=== PATIENT | male | born 1940 | race Caucasian/White ===

== ENCOUNTER → 2023-11-14 12:40 | Outpatient (CLI) | payer OTHER, SELFPAY | PROVIDERS: Family Provider Family Medicine; PCP Family Medicine; Referring Provider Family Medicine; Visit Provider Physician Assistant | DX: L97.822 Non-pressure chronic ulcer of other part of left lower leg with fat layer exposed (principal); L97.322 Non-pressure chronic ulcer of left ankle with fat layer exposed; I73.9 Peripheral vascular disease, unspecified; E11.621 Type 2 diabetes mellitus with foot ulcer; L97.412 Non-pressure chronic ulcer of right heel and midfoot with fat layer exposed; S61.215A Laceration without foreign body of left ring finger without damage to nail, initial encounter; R60.0 Localized edema; L53.9 Erythematous condition, unspecified; R23.4 Changes in skin texture; I48.91 Unspecified atrial fibrillation | CPT/HCPCS: 11042; 11045; 97597; 99213 ==

== ENCOUNTER → 2023-11-21 07:39 | Outpatient (CLI) | payer OTHER, SELFPAY ==
--- NOTE | 2023-11-21 07:40 | DI.US.S_ITS ---
PROCEDURE: US ARTERIAL DUPLEX LE BI INDICATIONS: NON-HEALING WOUNDS BILATERAL TECHNIQUE: Color and pulse Doppler interrogation was performed of both lower extremity arterial systems, with image documentation. COMPARISON: None. FINDINGS: Right lower extremity: Common femoral artery: 57 cm/sec, with triphasic flow. Deep femoral artery: 84 cm/sec, with biphasic flow. Proximal superficial femoral artery: 95 cm/sec, with triphasic flow. Mid superficial femoral artery: 104 cm/sec, with triphasic flow. Distal superficial femoral artery: 91 cm/sec, with triphasic flow. Popliteal artery: 58 cm/sec, with triphasic flow. Posterior tibial artery: 39 cm/sec, with monophasic flow. Anterior tibial artery/dorsalis pedis: 41 cm/sec, with monophasic flow. Raymundo-scale imaging description: Extensive atheromatous calcifications are present predominantly within the infrageniculate arteries. Dampened infrageniculate arterial waveforms raises the suspicion for a hemodynamically significant stenosis at the popliteal artery. Left lower extremity: Common femoral artery: 80 cm/sec, with triphasic flow. Deep femoral artery: 88 cm/sec, with biphasic flow. Proximal superficial femoral artery: 83 cm/sec, with triphasic flow. Mid superficial femoral artery: 96 cm/sec, with triphasic flow. Distal superficial femoral artery: 88 cm/sec, with triphasic flow. Popliteal artery: 79 cm/sec, with triphasic flow. Posterior tibial artery: 22 cm/sec, with monophasic flow. Anterior tibial artery/dorsalis pedis: 53 cm/sec, with monophasic flow. Raymundo-scale imaging description: Dense atheromatous calcifications are present, predominantly within the infrageniculate arteries. Waveforms are dampened within the infrageniculate arteries as well. IMPRESSION: 1. Dampened waveforms bilaterally within the infrageniculate arteries in addition to heavily calcified vessels. Focal hemodynamically significant stenoses at the level of the popliteal arteries cannot be excluded. If further characterization is warranted, and to evaluate for possible therapeutic intervention, CTA with bilateral lower extremity runoff is recommended. Dictated by: Malou Aranda M.D. on 11/21/2023 at 11:00 Approved by: Malou Aranda M.D. on 11/21/2023 at 11:03
--- NOTE | 2023-11-21 12:39 | DI.RAD.S_ITS ---
PROCEDURE: XR TIBIA FIBULA LT 2V INDICATIONS: NONHEALING ULCER ON LEFT LEG TECHNIQUE: 2 views of the tibia and fibula were acquired. COMPARISON: None. FINDINGS: Bones: Orthopedic hardware of the ankle is seen with severe DJD distorting the ankle mortise. No perihardware lucency is identified. DJD of the partially visualized patellofemoral joint and medial and lateral knee compartments is also noted. Soft tissues: Severe atherosclerotic vascular calcifications of the posterior tibial, peroneal arteries noted IMPRESSION: 1. Orthopedic hardware noted 2. Severe atherosclerotic vascular calcifications present. Dictated by: Stanley Alvarez M.D. on 11/21/2023 at 16:38 Approved by: Stanley Alvarez M.D. on 11/21/2023 at 16:41
--- NOTE | 2023-11-21 12:39 | DI.RAD.S_ITS ---
PROCEDURE: XR CALCANEOUS RT MIN 2V INDICATIONS: non-healing ulcer on right heel TECHNIQUE: Two views of the calcaneus were acquired. COMPARISON: None. FINDINGS: Bones: No acute fractures or dislocations. No suspicious bony lesions. Orthopedic screws are seen in the hindfoot and midfoot with no perihardware lucency identified. Soft tissues: Soft tissue swelling. Severe atherosclerotic vascular calcifications of the anterior tibial, dorsalis pedis, posterior tibial artery seen. IMPRESSION: 1. Orthopedic hardware in the hindfoot and midfoot with no evidence of chronic osteomyelitis although plain radiography has low sensitivity for osteomyelitis. 2. Severe peripheral arterial disease calcifications noted; if indicated, lower extremity Doppler ultrasound may provide additional diagnostic benefit Dictated by: Stanley Alvarez M.D. on 11/21/2023 at 16:36 Approved by: Stanley Alvarez M.D. on 11/21/2023 at 16:38
== END ==
PROVIDERS: Family Provider Family Medicine; PCP Family Medicine; Referring Provider Physician Assistant; Visit Provider Physician Assistant
DX: E11.621 Type 2 diabetes mellitus with foot ulcer (principal); L97.929 Non-pressure chronic ulcer of unspecified part of left lower leg with unspecified severity; E11.51 Type 2 diabetes mellitus with diabetic peripheral angiopathy without gangrene; I70.203 Unspecified atherosclerosis of native arteries of extremities, bilateral legs
CPT/HCPCS: 73590; 73650; 93925

== ENCOUNTER → 2023-11-21 11:38 | Outpatient (CLI) | payer OTHER, SELFPAY | PROVIDERS: Family Provider Family Medicine; PCP Family Medicine; Referring Provider Physician Assistant; Visit Provider Physician Assistant | DX: L08.9 Local infection of the skin and subcutaneous tissue, unspecified (principal); E11.621 Type 2 diabetes mellitus with foot ulcer; L97.929 Non-pressure chronic ulcer of unspecified part of left lower leg with unspecified severity; E11.51 Type 2 diabetes mellitus with diabetic peripheral angiopathy without gangrene; I70.202 Unspecified atherosclerosis of native arteries of extremities, left leg; L97.412 Non-pressure chronic ulcer of right heel and midfoot with fat layer exposed; L97.822 Non-pressure chronic ulcer of other part of left lower leg with fat layer exposed; L97.322 Non-pressure chronic ulcer of left ankle with fat layer exposed; I73.9 Peripheral vascular disease, unspecified; I96 Gangrene, not elsewhere classified; L53.9 Erythematous condition, unspecified; R60.0 Localized edema; I70.243 Atherosclerosis of native arteries of left leg with ulceration of ankle; I70.248 Atherosclerosis of native arteries of left leg with ulceration of other part of lower leg | CPT/HCPCS: 73590; 73650; 87070; 87075; 87077; 87205; 93925; 97597; 97598; 99214 ==

== ENCOUNTER → 2023-11-28 13:00 | Outpatient (CLI) | payer OTHER, SELFPAY | PROVIDERS: Family Provider Family Medicine; PCP Family Medicine; Referring Provider Family Medicine; Visit Provider Physician Assistant | DX: L97.822 Non-pressure chronic ulcer of other part of left lower leg with fat layer exposed (principal); I73.9 Peripheral vascular disease, unspecified; E11.621 Type 2 diabetes mellitus with foot ulcer; L97.412 Non-pressure chronic ulcer of right heel and midfoot with fat layer exposed; R60.0 Localized edema; L53.9 Erythematous condition, unspecified; Z79.01 Long term (current) use of anticoagulants; I11.0 Hypertensive heart disease with heart failure; I48.91 Unspecified atrial fibrillation; R20.8 Other disturbances of skin sensation | CPT/HCPCS: 11042; 87070; 87075; 87077; 87205; 99214 ==

== ENCOUNTER → 2023-12-05 08:57 | Outpatient (CLI) | payer OTHER, SELFPAY ==
--- NOTE | 2023-12-05 08:58 | DI.CT.S_ITS ---
PROCEDURE: CT ANGIO ABD AORTA RUNOFF INDICATIONS: PERIPHERAL VASCULAR DISEASE, LEG ULCERS TECHNIQUE: After the administration of intravenous contrast, 2.5 mm sections acquired from T12 to the feet, with optional delayed image acquisition from the knees to the feet. 3-dimensional maximum intensity projection (MIP) coronal and sagittal reformats, and/or 3-dimensional volume rendering reformatting was then performed. For radiation dose reduction, the following was used: automated exposure control. COMPARISON: None. FINDINGS: Image Quality: Diagnostic. Abdominal aorta: Moderate calcification of the abdominal aorta, without aneurysm. Splanchnic vessels: Celiac artery, SMA, TAMELA and bilateral renal arteries are patent. There is an accessory right upper pole renal artery. Mild scattered atherosclerotic plaque. No hemodynamically significant stenosis. Right lower extremity: Iliac vessels: Patent with no high-grade stenosis. Mild atherosclerotic plaque of the common iliac artery. Moderate atherosclerotic plaque of the internal iliac artery. LAWN MOWER SHARPENER: Patent with no high-grade stenosis. Moderate calcification. Profunda: Moderate to marked atherosclerotic calcification. A posteromedial branch of the profundus femoral artery appears chronically occluded (4/292). Proximal profundus is patent. Just proximal to the bifurcation, there is a high-grade stenosis (2/60). SFA: Patent with no high-grade stenosis. Mild multifocal stenosis. Moderate to marked atherosclerotic calcification. Popliteal: Patent with mild multifocal stenoses. Moderate to marked atherosclerotic calcification. Hxtkp-qzk-phck vasculature: Evaluation for patency is limited due to lack of delayed phase imaging and heavily calcified vessels. TP trunk appears patent with mild multifocal stenoses. Left lower extremity: Iliac vessels: Patent with no high-grade stenosis. Mild atherosclerotic plaque of the common iliac artery. Moderate atherosclerotic plaque of the internal iliac artery. LAWN MOWER SHARPENER: Patent with no high-grade stenosis. Moderate calcification. Profunda: Moderate to marked atherosclerotic calcification. Mild to multifocal stenoses. SFA: Patent with no high-grade stenosis. Mild multifocal stenosis. Moderate to marked atherosclerotic calcification. Popliteal: Patent with mild multifocal stenoses. Focal moderate stenosis in the proximal segment of approximately 50% (4/427). Moderate to marked atherosclerotic calcification. Zbzwb-ojz-cnpk vasculature: Evaluation for patency is limited due to lack of delayed phase imaging and heavily calcified vessels. TP trunk appears patent with mild multifocal stenoses. Lower Chest: Cardiomegaly. Cardiac pacers. Postsurgical changes of CABG. Dependent atelectasis. ABDOMEN: Arterial phase imaging limits evaluation of the visceral organs. Liver: No solid mass. Scattered simple cysts. A few tiny subcentimeter hypodensities are too small to characterize. Gallbladder: No radiopaque gallstones or wall thickening. Biliary ducts: No biliary dilation. Pancreas: No ductal dilation. Spleen: Size is within normal limits. Adrenal Glands: No adrenal nodules. Kidneys and Ureters: Xukh-da-ojuyrxeh hydronephrosis. There may be parapelvic cysts bilaterally. No solid mass. No complex renal cystic lesion which requires follow up. Stomach and Bowel: No hiatal hernia. Stomach is grossly normal. Small and large bowel is normal in caliber, without obstruction. Marked colonic stool burden with large stool ball in the rectum with associated mild rectal wall thickening. Peritoneum: No abnormal intraperitoneal fluid. No free air. Ventral Wall: No hernia. Abdominal Nodes: No retroperitoneal or mesenteric adenopathy by size criteria. Vessels: IVC is normal in caliber. PELVIS: Pelvic Organs: Mild prostatomegaly. Bladder: Unremarkable. Pelvic Nodes: No enlarged lymph nodes. Miscellaneous: Small bilateral fat containing inguinal hernias Bones: No aggressive osseous abnormality. Moderate left and small right suprapatellar joint effusions. ORIF of the left ankle and hardware in the calcaneus and bilateral midfoot and forefoot is intact with no perihardware lucency to suggest hardware loosening. IMPRESSION: 1. Right lower extremity: Arterial vasculature demonstrates no evidence of a hemodynamically significant stenosis to the level of the popliteal artery. Below the knee vasculature is limited secondary to heavily calcified vessels. Correlate with prior arterial duplex. 2. Left lower extremity: Arterial vasculature demonstrates a focal moderate stenosis in the proximal popliteal artery of approximately 50%. Remainder of the arterial vasculature demonstrates no evidence of a hemodynamically significant stenosis. Below the knee vasculature is limited secondary to heavily calcified vessels. Correlate with prior arterial duplex. 3. Marked colonic stool burden with large stool burden in the rectum with associated mild rectal wall thickening compatible with constipation and increases the risk for stercoral colitis. 4. Cardiomegaly. Dictated by: Mary Garcia M.D. on 12/05/2023 at 15:20 Approved by: Mary Garcia M.D. on 12/05/2023 at 15:39
[2023-12-05 09:26] LABS: BUN Creatinine Ratio 29.1 (6-22); Blood Urea Nitrogen 30 mg/dL (9-20); Estimated Glomerular Filt Rate > 60 mL/min (>60)
== END ==
PROVIDERS: Family Provider Family Medicine; PCP Family Medicine; Referring Provider Physician Assistant; Visit Provider Physician Assistant
DX: I70.203 Unspecified atherosclerosis of native arteries of extremities, bilateral legs (principal); L97.909 Non-pressure chronic ulcer of unspecified part of unspecified lower leg with unspecified severity; I70.0 Atherosclerosis of aorta; K76.89 Other specified diseases of liver; N13.30 Unspecified hydronephrosis; I51.7 Cardiomegaly; E11.621 Type 2 diabetes mellitus with foot ulcer; L97.412 Non-pressure chronic ulcer of right heel and midfoot with fat layer exposed; L97.822 Non-pressure chronic ulcer of other part of left lower leg with fat layer exposed; L97.322 Non-pressure chronic ulcer of left ankle with fat layer exposed; I10 Essential (primary) hypertension; Z95.0 Presence of cardiac pacemaker; Z95.1 Presence of aortocoronary bypass graft; Z79.899 Other long term (current) drug therapy
CPT/HCPCS: 36415; 75635; 82565; 84520; 97602; Q9967

== ENCOUNTER → 2023-12-05 14:16 | Outpatient (CLI) | payer OTHER, SELFPAY | PROVIDERS: Family Provider Family Medicine; PCP Family Medicine; Referring Provider Family Medicine; Visit Provider Surgery | DX: E11.621 Type 2 diabetes mellitus with foot ulcer (principal); L97.412 Non-pressure chronic ulcer of right heel and midfoot with fat layer exposed; L97.822 Non-pressure chronic ulcer of other part of left lower leg with fat layer exposed; L97.322 Non-pressure chronic ulcer of left ankle with fat layer exposed; I73.9 Peripheral vascular disease, unspecified; I10 Essential (primary) hypertension | CPT/HCPCS: 97602; 99213 ==

== ENCOUNTER → 2023-12-19 11:13 | Outpatient (CLI) | payer OTHER, SELFPAY | LOC: WC 11:14 | PROVIDERS: Family Provider Family Medicine; PCP Family Medicine; Referring Provider Family Medicine; Visit Provider Nurse Practitioner Family | DX: E11.621 Type 2 diabetes mellitus with foot ulcer (principal); L97.412 Non-pressure chronic ulcer of right heel and midfoot with fat layer exposed; L97.822 Non-pressure chronic ulcer of other part of left lower leg with fat layer exposed; L97.322 Non-pressure chronic ulcer of left ankle with fat layer exposed; I73.9 Peripheral vascular disease, unspecified; R60.0 Localized edema; I25.10 Atherosclerotic heart disease of native coronary artery without angina pectoris; I50.9 Heart failure, unspecified; Z79.899 Other long term (current) drug therapy | CPT/HCPCS: 11042; 11045; 97597; 99213; 99214 ==

== ENCOUNTER → 2023-12-26 15:36 | Outpatient (CLI) | payer OTHER, SELFPAY | LOC: WC 15:36 | PROVIDERS: Family Provider Family Medicine; PCP Family Medicine; Referring Provider Family Medicine; Visit Provider Physician Assistant | DX: L97.822 Non-pressure chronic ulcer of other part of left lower leg with fat layer exposed (principal); L97.322 Non-pressure chronic ulcer of left ankle with fat layer exposed; I73.9 Peripheral vascular disease, unspecified; E11.621 Type 2 diabetes mellitus with foot ulcer; L97.412 Non-pressure chronic ulcer of right heel and midfoot with fat layer exposed; R60.0 Localized edema; I10 Essential (primary) hypertension; E78.5 Hyperlipidemia, unspecified; I48.91 Unspecified atrial fibrillation; Z79.01 Long term (current) use of anticoagulants | CPT/HCPCS: 11042; 11045; 99213 ==

== ENCOUNTER → 2024-01-02 15:32 | Outpatient (CLI) | payer OTHER, SELFPAY | LOC: WC 15:32 | PROVIDERS: Family Provider Family Medicine; PCP Family Medicine; Referring Provider Family Medicine; Visit Provider Physician Assistant | DX: L97.822 Non-pressure chronic ulcer of other part of left lower leg with fat layer exposed (principal); L97.322 Non-pressure chronic ulcer of left ankle with fat layer exposed; I73.9 Peripheral vascular disease, unspecified; E11.621 Type 2 diabetes mellitus with foot ulcer; L97.412 Non-pressure chronic ulcer of right heel and midfoot with fat layer exposed; L97.422 Non-pressure chronic ulcer of left heel and midfoot with fat layer exposed; E78.5 Hyperlipidemia, unspecified; I48.91 Unspecified atrial fibrillation; I11.0 Hypertensive heart disease with heart failure; Z79.01 Long term (current) use of anticoagulants; R60.0 Localized edema | CPT/HCPCS: 11042; 11045; 87070; 87075; 87077; 87205; 99212 ==

== ENCOUNTER → 2024-01-09 11:13 | Outpatient (CLI) | payer OTHER, SELFPAY ==
--- NOTE | 2024-01-09 11:14 | DI.RAD.S_ITS ---
PROCEDURE: XR FOOT RT MIN 3V INDICATIONS: Non-healing ulcer of right post heel and medial achilles TECHNIQUE: 3 views of the foot were acquired. COMPARISON: [facility], CR, XR CALCANEOUS RT MIN 2V, 11/21/2023, 12:44. FINDINGS: Bones: Prior arthrodesis of the medial ankle column extending to the 5th metatarsal base with fixation plate and associated screws in expected positions. There is fracture of the most distal surgical screw which traverses the 4th and 5th metatarsus. Prior calcaneal osteotomy with expected positioning of partially threaded fixation screws. Mild hallux valgus metatarsus prima varus alignment and medial bunion. Severe 1st MTP and mild diffuse interphalangeal joint space narrowing with periarticular osteophyte formation. There is cortical irregularity and lucency involving the tuft of the 2nd digit with mild adjacent soft tissue swelling. Soft tissues: No tibiotalar joint effusion. Achilles tendon appears normal. Vascular calcifications indicate atherosclerosis. IMPRESSION: 1. Postsurgical changes at as above with fracture of the surgical fixation screw which traverses the base of the 1st and 2nd metatarsus. 2. Cortical irregularity and lucency along the 2nd distal tuft with mild adjacent soft tissue swelling. Fracture and/or osteomyelitis cannot be excluded and clinical correlation is recommended. Attention on follow-up. Dictated by: Arik Muñoz [facility] Interpreted: Jania Holt MD on 01/09/2024 at 11:31 Transcribed by: TIFFANIE on 01/09/2024 at 11:35 Approved by: Jania Holt M.D. on 01/09/2024 at 12:15
== END ==
PROVIDERS: Family Provider Family Medicine; PCP Family Medicine; Referring Provider Physician Assistant; Visit Provider Physician Assistant
DX: L97.411 Non-pressure chronic ulcer of right heel and midfoot limited to breakdown of skin (principal); M20.11 Hallux valgus (acquired), right foot; M20.31 Hallux varus (acquired), right foot; M21.611 Bunion of right foot; L97.822 Non-pressure chronic ulcer of other part of left lower leg with fat layer exposed; L97.322 Non-pressure chronic ulcer of left ankle with fat layer exposed; I73.9 Peripheral vascular disease, unspecified; E11.621 Type 2 diabetes mellitus with foot ulcer; L97.412 Non-pressure chronic ulcer of right heel and midfoot with fat layer exposed; R60.0 Localized edema; I10 Essential (primary) hypertension; I48.91 Unspecified atrial fibrillation; Z79.01 Long term (current) use of anticoagulants
CPT/HCPCS: 11042; 11045; 73630

== ENCOUNTER → 2024-01-09 11:35 | Outpatient (CLI) | payer OTHER, SELFPAY | PROVIDERS: Family Provider Family Medicine; PCP Family Medicine; Referring Provider Family Medicine; Visit Provider Physician Assistant | DX: L97.822 Non-pressure chronic ulcer of other part of left lower leg with fat layer exposed (principal); L97.322 Non-pressure chronic ulcer of left ankle with fat layer exposed; I73.9 Peripheral vascular disease, unspecified; E11.621 Type 2 diabetes mellitus with foot ulcer; L97.412 Non-pressure chronic ulcer of right heel and midfoot with fat layer exposed; L97.422 Non-pressure chronic ulcer of left heel and midfoot with fat layer exposed; R60.0 Localized edema; I10 Essential (primary) hypertension; I48.91 Unspecified atrial fibrillation; Z79.01 Long term (current) use of anticoagulants | CPT/HCPCS: 11042; 11045; 99214 ==

== ENCOUNTER → 2024-01-16 14:22 | Outpatient (CLI) | payer OTHER, SELFPAY | LOC: WC 14:23 | PROVIDERS: Family Provider Family Medicine; PCP Family Medicine; Referring Provider Family Medicine; Visit Provider Physician Assistant | DX: E11.621 Type 2 diabetes mellitus with foot ulcer (principal); L97.412 Non-pressure chronic ulcer of right heel and midfoot with fat layer exposed; L97.422 Non-pressure chronic ulcer of left heel and midfoot with fat layer exposed; L97.822 Non-pressure chronic ulcer of other part of left lower leg with fat layer exposed; I73.9 Peripheral vascular disease, unspecified; R60.0 Localized edema; I48.91 Unspecified atrial fibrillation; Z79.01 Long term (current) use of anticoagulants; I11.0 Hypertensive heart disease with heart failure | CPT/HCPCS: 11042; 11045; 97597; 99213 ==

== ENCOUNTER → 2024-01-23 14:27 | Outpatient (CLI) | payer OTHER, SELFPAY | LOC: WC 14:28 | PROVIDERS: Family Provider Family Medicine; PCP Family Medicine; Referring Provider Family Medicine; Visit Provider Surgery | DX: E11.621 Type 2 diabetes mellitus with foot ulcer (principal); L97.412 Non-pressure chronic ulcer of right heel and midfoot with fat layer exposed; L97.422 Non-pressure chronic ulcer of left heel and midfoot with fat layer exposed; L97.312 Non-pressure chronic ulcer of right ankle with fat layer exposed; L97.822 Non-pressure chronic ulcer of other part of left lower leg with fat layer exposed; L97.322 Non-pressure chronic ulcer of left ankle with fat layer exposed; I73.9 Peripheral vascular disease, unspecified; R60.0 Localized edema; L53.9 Erythematous condition, unspecified; I48.91 Unspecified atrial fibrillation; Z79.01 Long term (current) use of anticoagulants; I11.0 Hypertensive heart disease with heart failure | CPT/HCPCS: 11042; 11045 ==

== ENCOUNTER → 2024-01-30 09:45 | Outpatient (CLI) | payer OTHER, SELFPAY | PROVIDERS: Family Provider Family Medicine; PCP Family Medicine; Referring Provider Family Medicine; Visit Provider Physician Assistant | DX: E11.621 Type 2 diabetes mellitus with foot ulcer (principal); I73.9 Peripheral vascular disease, unspecified; L97.822 Non-pressure chronic ulcer of other part of left lower leg with fat layer exposed; L97.322 Non-pressure chronic ulcer of left ankle with fat layer exposed; L97.412 Non-pressure chronic ulcer of right heel and midfoot with fat layer exposed; L97.422 Non-pressure chronic ulcer of left heel and midfoot with fat layer exposed; L97.312 Non-pressure chronic ulcer of right ankle with fat layer exposed; R60.0 Localized edema; I11.0 Hypertensive heart disease with heart failure; I48.91 Unspecified atrial fibrillation; Z79.01 Long term (current) use of anticoagulants | CPT/HCPCS: 11042; 11045; 99214 ==

== ENCOUNTER → 2024-02-06 10:22 | Outpatient (CLI) | payer OTHER, SELFPAY | PROVIDERS: Family Provider Family Medicine; PCP Family Medicine; Referring Provider Family Medicine; Visit Provider Physician Assistant | DX: E11.621 Type 2 diabetes mellitus with foot ulcer (principal); L97.412 Non-pressure chronic ulcer of right heel and midfoot with fat layer exposed; L97.422 Non-pressure chronic ulcer of left heel and midfoot with fat layer exposed; L97.312 Non-pressure chronic ulcer of right ankle with fat layer exposed; L97.822 Non-pressure chronic ulcer of other part of left lower leg with fat layer exposed; L97.322 Non-pressure chronic ulcer of left ankle with fat layer exposed; I87.2 Venous insufficiency (chronic) (peripheral); R60.0 Localized edema; L53.9 Erythematous condition, unspecified; I25.10 Atherosclerotic heart disease of native coronary artery without angina pectoris; I50.9 Heart failure, unspecified; I73.9 Peripheral vascular disease, unspecified | CPT/HCPCS: 11042; 11045; 99213; 99214 ==

== ENCOUNTER → 2024-02-13 10:27 | Outpatient (CLI) | payer OTHER, SELFPAY | PROVIDERS: Family Provider Family Medicine; PCP Family Medicine; Referring Provider Family Medicine; Visit Provider Physician Assistant | DX: E11.621 Type 2 diabetes mellitus with foot ulcer (principal); L97.412 Non-pressure chronic ulcer of right heel and midfoot with fat layer exposed; L97.422 Non-pressure chronic ulcer of left heel and midfoot with fat layer exposed; L97.312 Non-pressure chronic ulcer of right ankle with fat layer exposed; L97.822 Non-pressure chronic ulcer of other part of left lower leg with fat layer exposed; L97.322 Non-pressure chronic ulcer of left ankle with fat layer exposed; I73.9 Peripheral vascular disease, unspecified; R60.0 Localized edema; L53.9 Erythematous condition, unspecified; I48.91 Unspecified atrial fibrillation; Z79.01 Long term (current) use of anticoagulants; I11.0 Hypertensive heart disease with heart failure | CPT/HCPCS: 11042; 11045; 87070; 87075; 87077; 87147; 87186; 87205; 99214 ==

== ENCOUNTER → 2024-02-20 09:58 | Outpatient (CLI) | payer OTHER, SELFPAY | PROVIDERS: Family Provider Family Medicine; PCP Family Medicine; Referring Provider Family Medicine; Visit Provider Physician Assistant | DX: L97.822 Non-pressure chronic ulcer of other part of left lower leg with fat layer exposed (principal); L97.322 Non-pressure chronic ulcer of left ankle with fat layer exposed; I73.9 Peripheral vascular disease, unspecified; E11.621 Type 2 diabetes mellitus with foot ulcer; L97.412 Non-pressure chronic ulcer of right heel and midfoot with fat layer exposed; L97.422 Non-pressure chronic ulcer of left heel and midfoot with fat layer exposed; L97.312 Non-pressure chronic ulcer of right ankle with fat layer exposed; L53.9 Erythematous condition, unspecified; R60.0 Localized edema | CPT/HCPCS: 11042; 11045; 99214 ==

== ENCOUNTER → 2024-02-20 11:07 | Outpatient (CLI) | payer OTHER, SELFPAY ==
[2024-02-20 12:09] LABS: Add Manual Diff / Slide Review NO; Basophils Absolute Auto 0 /uL (0-100); Basophils Percent Auto 0.5 % (0-2); Eosinophils Absolute Auto 500 /uL (0-450); Eosinophils Percent Auto 5.3 % (2-4); Hematocrit 35.5 % (41-53); Hemoglobin 11.5 g/dL (13.5-17.5); Lymphocytes Absolute Auto 1200 /uL (1100-4500); Lymphocytes Percent Auto 12.8 % (25-40); Mean Corpuscular HGB Conc 32.4 % (30-36); Mean Corpuscular Volume 89.4 fL (80-100); Monocytes Absolute Auto 700 /uL (0-900); Monocytes Percent Auto 7.9 % (3-14); Neutrophils Absolute Auto 6800 /uL (1500-7000); Neutrophils Percent Auto 73.5 % (50-75); Platelet Count 253 X10^3/uL (150-400); Red Blood Cell Count 3.97 X10^6/uL (4.5-5.9); Red Cell Distribution Width 18.8 % (11.6-14.8); White Blood Cell Count 9.3 X10^3/uL (4.5-11.0)
[2024-02-20 17:34] LABS: Alanine Aminotransferase 32 IU/L (<50); Albumin 4.7 g/dL (3.5-5.0); Albumin Globulin Ratio 1.8 (1.0-2.8); Alkaline Phosphatase 124 U/L (38-126); Aspartate Aminotransferase 31 IU/L (17-59); BUN Creatinine Ratio 31.3 (6-22); Bilirubin Total 1.1 mg/dL (0.2-1.3); Blood Urea Nitrogen 30 mg/dL (9-20); Calcium 9.4 mg/dL (8.4-10.2); Carbon Dioxide 30 mmol/L (22-32); Chloride 102 mmol/L (98-107); Estimated Glomerular Filt Rate > 60 mL/min (>60); Globulin 2.6 g/dL (1.7-4.1); Glucose 110 mg/dL (80-110); HEMOLYSIS < 15 (0-50); Potassium 4.2 mmol/L (3.4-5.1); Sodium 142 mmol/L (137-145); Total Protein 7.3 g/dL (6.3-8.2)
== END ==
PROVIDERS: Family Provider Family Medicine; PCP Family Medicine; Referring Provider Internal Medicine Infectious Disease; Visit Provider Internal Medicine Infectious Disease
DX: E11.621 Type 2 diabetes mellitus with foot ulcer (principal); L97.412 Non-pressure chronic ulcer of right heel and midfoot with fat layer exposed; L97.422 Non-pressure chronic ulcer of left heel and midfoot with fat layer exposed; L97.312 Non-pressure chronic ulcer of right ankle with fat layer exposed; L97.822 Non-pressure chronic ulcer of other part of left lower leg with fat layer exposed; L97.322 Non-pressure chronic ulcer of left ankle with fat layer exposed; L08.9 Local infection of the skin and subcutaneous tissue, unspecified; T14.8XXA Other injury of unspecified body region, initial encounter; A49.9 Bacterial infection, unspecified; Z16.12 Extended spectrum beta lactamase (ESBL) resistance; I73.9 Peripheral vascular disease, unspecified; L53.9 Erythematous condition, unspecified; R60.0 Localized edema
CPT/HCPCS: 11042; 11045; 36415; 80053; 85025

== ENCOUNTER → 2024-02-27 10:35 | Outpatient (CLI) | payer OTHER, SELFPAY | PROVIDERS: Family Provider Family Medicine; PCP Family Medicine; Referring Provider Family Medicine; Visit Provider Physician Assistant | DX: E11.621 Type 2 diabetes mellitus with foot ulcer (principal); L97.822 Non-pressure chronic ulcer of other part of left lower leg with fat layer exposed; L97.322 Non-pressure chronic ulcer of left ankle with fat layer exposed; L97.422 Non-pressure chronic ulcer of left heel and midfoot with fat layer exposed; L97.312 Non-pressure chronic ulcer of right ankle with fat layer exposed; I73.9 Peripheral vascular disease, unspecified; L53.9 Erythematous condition, unspecified; R60.0 Localized edema; I10 Essential (primary) hypertension; I48.91 Unspecified atrial fibrillation; Z79.01 Long term (current) use of anticoagulants; L97.412 Non-pressure chronic ulcer of right heel and midfoot with fat layer exposed | CPT/HCPCS: 11042; 11045; 99214 ==

== ENCOUNTER → 2024-03-05 12:52 | Outpatient (CLI) | payer OTHER, SELFPAY | PROVIDERS: Family Provider Family Medicine; PCP Family Medicine; Referring Provider Family Medicine; Visit Provider Physician Assistant | DX: E11.621 Type 2 diabetes mellitus with foot ulcer (principal); I73.9 Peripheral vascular disease, unspecified; L97.822 Non-pressure chronic ulcer of other part of left lower leg with fat layer exposed; L97.322 Non-pressure chronic ulcer of left ankle with fat layer exposed; L97.412 Non-pressure chronic ulcer of right heel and midfoot with fat layer exposed; L97.422 Non-pressure chronic ulcer of left heel and midfoot with fat layer exposed; L97.312 Non-pressure chronic ulcer of right ankle with fat layer exposed; R60.0 Localized edema; L53.9 Erythematous condition, unspecified; Z79.899 Other long term (current) drug therapy; I48.91 Unspecified atrial fibrillation; Z79.01 Long term (current) use of anticoagulants | CPT/HCPCS: 11042; 11045; 99213 ==

== ENCOUNTER → 2024-03-12 12:55 | Outpatient (CLI) | payer OTHER, SELFPAY | LOC: WC 12:56 | PROVIDERS: Family Provider Family Medicine; PCP Family Medicine; Referring Provider Family Medicine; Visit Provider Surgery | DX: E11.621 Type 2 diabetes mellitus with foot ulcer (principal); L97.412 Non-pressure chronic ulcer of right heel and midfoot with fat layer exposed; L97.422 Non-pressure chronic ulcer of left heel and midfoot with fat layer exposed; L97.312 Non-pressure chronic ulcer of right ankle with fat layer exposed; L97.822 Non-pressure chronic ulcer of other part of left lower leg with fat layer exposed; L97.322 Non-pressure chronic ulcer of left ankle with fat layer exposed; L98.8 Other specified disorders of the skin and subcutaneous tissue; I73.9 Peripheral vascular disease, unspecified; R60.0 Localized edema | CPT/HCPCS: 11042; 11045; 99213; 99214 ==

== ENCOUNTER → 2024-03-12 14:25 | Outpatient (CLI) | payer OTHER, SELFPAY ==
--- NOTE | 2024-03-12 14:26 | DI.RAD.S_ITS ---
PROCEDURE: XR FOOT LT MIN 3V INDICATIONS: non-healing ulcer on left lateral heel TECHNIQUE: 3 views of the foot were acquired. COMPARISON: [facility], CR, XR FOOT RT MIN 3V, 01/09/2024, 11:15. FINDINGS: Bones: Decreased bone mineralization. 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 Interphalangeal joint space narrowing with osteophytosis. Midfoot arthrodesis. Disrupted arthrodesis screw. Ankle arthrodesis. No bony erosion. Soft tissues: No tibiotalar joint effusion. Achilles tendon appears normal. Vascular calcifications. IMPRESSION: No bony erosion to suggest osteomyelitis. Disrupted arthrodesis screw. Dictated by: Chester Nicole M.D. on 03/12/2024 at 15:34 Approved by: Chester Nicole M.D. on 03/12/2024 at 15:35
== END ==
PROVIDERS: Family Provider Family Medicine; PCP Family Medicine; Referring Provider Surgery; Visit Provider Surgery
DX: T84.223A Displacement of internal fixation device of bones of foot and toes, initial encounter (principal); E11.621 Type 2 diabetes mellitus with foot ulcer
CPT/HCPCS: 11042; 11045; 73630; 99213

== ENCOUNTER → 2024-03-19 11:01 | Outpatient (CLI) | payer OTHER, SELFPAY | PROVIDERS: Family Provider Family Medicine; PCP Family Medicine; Referring Provider Family Medicine; Visit Provider Physician Assistant | DX: E11.621 Type 2 diabetes mellitus with foot ulcer (principal); L97.422 Non-pressure chronic ulcer of left heel and midfoot with fat layer exposed; L97.312 Non-pressure chronic ulcer of right ankle with fat layer exposed; L97.412 Non-pressure chronic ulcer of right heel and midfoot with fat layer exposed; L97.822 Non-pressure chronic ulcer of other part of left lower leg with fat layer exposed; I73.9 Peripheral vascular disease, unspecified; L53.9 Erythematous condition, unspecified; R60.0 Localized edema; I10 Essential (primary) hypertension; I48.91 Unspecified atrial fibrillation; Z79.01 Long term (current) use of anticoagulants | CPT/HCPCS: 11042; 11045; 97597; 99214 ==

== ENCOUNTER → 2024-03-26 08:50 | Outpatient (CLI) | payer OTHER, SELFPAY | PROVIDERS: Family Provider Family Medicine; PCP Family Medicine; Referring Provider Family Medicine; Visit Provider Physician Assistant | DX: E11.621 Type 2 diabetes mellitus with foot ulcer (principal); L97.422 Non-pressure chronic ulcer of left heel and midfoot with fat layer exposed; L97.312 Non-pressure chronic ulcer of right ankle with fat layer exposed; L97.822 Non-pressure chronic ulcer of other part of left lower leg with fat layer exposed; I73.9 Peripheral vascular disease, unspecified; R60.0 Localized edema; I10 Essential (primary) hypertension; E78.5 Hyperlipidemia, unspecified; I48.91 Unspecified atrial fibrillation; I50.9 Heart failure, unspecified; Z79.01 Long term (current) use of anticoagulants | CPT/HCPCS: 11042; 99214 ==

== ENCOUNTER → 2024-03-31 11:11 | Outpatient (CLI) | payer OTHER, SELFPAY | LOC: WC 11:12 | PROVIDERS: Family Provider Family Medicine; PCP Family Medicine; Referring Provider Family Medicine; Visit Provider Surgery | DX: E11.621 Type 2 diabetes mellitus with foot ulcer (principal); L97.422 Non-pressure chronic ulcer of left heel and midfoot with fat layer exposed; L97.312 Non-pressure chronic ulcer of right ankle with fat layer exposed; L97.822 Non-pressure chronic ulcer of other part of left lower leg with fat layer exposed; I73.9 Peripheral vascular disease, unspecified; R60.0 Localized edema; I10 Essential (primary) hypertension; I48.91 Unspecified atrial fibrillation; Z79.01 Long term (current) use of anticoagulants | CPT/HCPCS: 11042; 97597; 99214 ==

== ENCOUNTER → 2024-04-16 11:07 | Outpatient (CLI) | payer OTHER, SELFPAY | PROVIDERS: Family Provider Family Medicine; PCP Family Medicine; Referring Provider Family Medicine; Visit Provider Physician Assistant | DX: E11.621 Type 2 diabetes mellitus with foot ulcer (principal); L97.426 Non-pressure chronic ulcer of left heel and midfoot with bone involvement without evidence of necrosis; L97.312 Non-pressure chronic ulcer of right ankle with fat layer exposed; L97.822 Non-pressure chronic ulcer of other part of left lower leg with fat layer exposed; I73.9 Peripheral vascular disease, unspecified; L53.9 Erythematous condition, unspecified; I50.9 Heart failure, unspecified; I25.10 Atherosclerotic heart disease of native coronary artery without angina pectoris; Z79.01 Long term (current) use of anticoagulants | CPT/HCPCS: 11042; 97597; 99213 ==

== ENCOUNTER → 2024-04-28 15:07 | Outpatient (CLI) | payer OTHER, SELFPAY ==
--- NOTE | 2024-04-28 15:08 | DI.NM.S_ITS ---
PROCEDURE: NM BONE 3 PHASE RADIOPHARMACEUTICAL: 21.1 mCi Tc-99m MDP IV. INDICATIONS: eval for osteo TECHNIQUE: Multiple bone scintigrams were obtained after intravenous injection of Tc-99m MDP, including flow, blood pool, and delayed images centered to the region of interest. COMPARISON: [facility], CR, XR FOOT RT MIN 3V, 01/09/2024, 11:15. [facility], CR, XR FOOT LT MIN 3V, 03/12/2024, 14:32. FINDINGS: On the blood flow images, mildly increased blood flow activity can be seen within the central/lateral aspect of the right ankle. On the blood pool images, there is asymmetric uptake seen involving the distal right tibia. On the delayed images, there is increased uptake seen involving the lateral aspect of the right ankle as well as surrounding the tibial talar arthroplasty hardware on the left. IMPRESSION: Potential osteomyelitis involving the right lateral ankle, yet this is not definite. If clinically appropriate, a follow-up ankle MRI (without and with contrast) could be considered for further evaluation (assuming that there is no contraindication). Likely normal postoperative findings seen involving the left ankle. Dictated by: Joselito Iyer M.D. on 04/29/2024 at 10:55 Approved by: Joselito Iyer M.D. on 04/29/2024 at 11:04
== END ==
PROVIDERS: Family Provider Family Medicine; PCP Family Medicine; Referring Provider Surgery; Visit Provider Surgery
DX: E11.621 Type 2 diabetes mellitus with foot ulcer (principal); L97.419 Non-pressure chronic ulcer of right heel and midfoot with unspecified severity
CPT/HCPCS: 78315; A9503

== ENCOUNTER → 2024-04-29 13:32 | Outpatient (CLI) | payer OTHER, SELFPAY | LOC: WC 13:33 | PROVIDERS: Family Provider Family Medicine; PCP Family Medicine; Referring Provider Family Medicine; Visit Provider Surgery | DX: E11.621 Type 2 diabetes mellitus with foot ulcer (principal); L97.426 Non-pressure chronic ulcer of left heel and midfoot with bone involvement without evidence of necrosis; L97.312 Non-pressure chronic ulcer of right ankle with fat layer exposed; L97.822 Non-pressure chronic ulcer of other part of left lower leg with fat layer exposed; I73.9 Peripheral vascular disease, unspecified; Z95.0 Presence of cardiac pacemaker; Z79.01 Long term (current) use of anticoagulants | CPT/HCPCS: 11042; 97597 ==

== ENCOUNTER → 2024-05-14 11:11 | Outpatient (CLI) | payer OTHER, SELFPAY | LOC: WC 11:11 | PROVIDERS: Family Provider Family Medicine; PCP Family Medicine; Referring Provider Family Medicine; Visit Provider Physician Assistant | DX: E11.621 Type 2 diabetes mellitus with foot ulcer (principal); L97.426 Non-pressure chronic ulcer of left heel and midfoot with bone involvement without evidence of necrosis; L97.312 Non-pressure chronic ulcer of right ankle with fat layer exposed; S81.812A Laceration without foreign body, left lower leg, initial encounter; L53.9 Erythematous condition, unspecified; L98.8 Other specified disorders of the skin and subcutaneous tissue | CPT/HCPCS: 11042; 97597; 99214 ==

== ENCOUNTER → 2024-05-21 13:21 | Outpatient (CLI) | payer OTHER, SELFPAY | PROVIDERS: Family Provider Family Medicine; PCP Family Medicine; Referring Provider Family Medicine; Visit Provider Physician Assistant | DX: E11.621 Type 2 diabetes mellitus with foot ulcer (principal); E11.628 Type 2 diabetes mellitus with other skin complications; L97.422 Non-pressure chronic ulcer of left heel and midfoot with fat layer exposed; S81.812A Laceration without foreign body, left lower leg, initial encounter; L97.312 Non-pressure chronic ulcer of right ankle with fat layer exposed; L84 Corns and callosities | CPT/HCPCS: 11042; 99213 ==

== ENCOUNTER → 2024-06-04 10:33 | Outpatient (CLI) | payer OTHER, SELFPAY | PROVIDERS: Family Provider Family Medicine; PCP Family Medicine; Referring Provider Family Medicine; Visit Provider Physician Assistant | DX: E11.621 Type 2 diabetes mellitus with foot ulcer (principal); L97.422 Non-pressure chronic ulcer of left heel and midfoot with fat layer exposed; I73.9 Peripheral vascular disease, unspecified; I10 Essential (primary) hypertension; E78.5 Hyperlipidemia, unspecified; I48.91 Unspecified atrial fibrillation; Z79.01 Long term (current) use of anticoagulants | CPT/HCPCS: 11042; 99213 ==

== ENCOUNTER → 2024-06-10 14:24 | Outpatient (CLI) | payer OTHER, SELFPAY | PROVIDERS: Family Provider Family Medicine; PCP Family Medicine; Referring Provider Family Medicine; Visit Provider Surgery | DX: E11.621 Type 2 diabetes mellitus with foot ulcer (principal); L97.422 Non-pressure chronic ulcer of left heel and midfoot with fat layer exposed; I73.9 Peripheral vascular disease, unspecified; Z79.01 Long term (current) use of anticoagulants | CPT/HCPCS: 11042 ==

== ENCOUNTER → 2024-06-18 10:30 | Outpatient (CLI) | payer OTHER, SELFPAY | LOC: WC 10:34 | PROVIDERS: Family Provider Family Medicine; PCP Family Medicine; Referring Provider Family Medicine; Visit Provider Physician Assistant | DX: E11.621 Type 2 diabetes mellitus with foot ulcer (principal); L97.422 Non-pressure chronic ulcer of left heel and midfoot with fat layer exposed; I73.9 Peripheral vascular disease, unspecified; I50.9 Heart failure, unspecified; I25.10 Atherosclerotic heart disease of native coronary artery without angina pectoris | CPT/HCPCS: 11042; 99213 ==

== ENCOUNTER → 2024-06-25 09:52 | Outpatient (CLI) | payer OTHER, SELFPAY | LOC: WC 09:57 | PROVIDERS: Family Provider Family Medicine; PCP Family Medicine; Referring Provider Family Medicine; Visit Provider Physician Assistant | DX: E11.621 Type 2 diabetes mellitus with foot ulcer (principal); L97.422 Non-pressure chronic ulcer of left heel and midfoot with fat layer exposed; I73.9 Peripheral vascular disease, unspecified; Z79.01 Long term (current) use of anticoagulants | CPT/HCPCS: 11042 ==

== ENCOUNTER → 2024-07-05 13:10 | Outpatient (CLI) | payer OTHER, SELFPAY | PROVIDERS: Family Provider Family Medicine; PCP Family Medicine; Referring Provider Family Medicine; Visit Provider Surgery | DX: E11.621 Type 2 diabetes mellitus with foot ulcer (principal); L97.422 Non-pressure chronic ulcer of left heel and midfoot with fat layer exposed; I73.9 Peripheral vascular disease, unspecified; Z79.01 Long term (current) use of anticoagulants; L08.89 Other specified local infections of the skin and subcutaneous tissue | CPT/HCPCS: 11042 ==

== ENCOUNTER → 2024-07-16 10:05 | Outpatient (CLI) | payer OTHER, SELFPAY | PROVIDERS: Family Provider Family Medicine; PCP Family Medicine; Referring Provider Family Medicine; Visit Provider Physician Assistant | DX: E11.621 Type 2 diabetes mellitus with foot ulcer (principal); L97.422 Non-pressure chronic ulcer of left heel and midfoot with fat layer exposed; L84 Corns and callosities; I73.9 Peripheral vascular disease, unspecified | CPT/HCPCS: 11042; 97605; 99213 ==

== ENCOUNTER → 2024-07-19 10:44 | Outpatient (CLI) | payer OTHER, SELFPAY | LOC: WC 10:44 | PROVIDERS: Family Provider Family Medicine; PCP Family Medicine; Referring Provider Family Medicine; Visit Provider Surgery | DX: E11.621 Type 2 diabetes mellitus with foot ulcer (principal); L97.422 Non-pressure chronic ulcer of left heel and midfoot with fat layer exposed; L84 Corns and callosities; R23.3 Spontaneous ecchymoses | CPT/HCPCS: 97605 ==

== ENCOUNTER → 2024-07-23 11:14 | Outpatient (CLI) | payer OTHER, SELFPAY | LOC: WC 11:16 | PROVIDERS: Family Provider Family Medicine; PCP Family Medicine; Referring Provider Family Medicine; Visit Provider Surgery | DX: E11.621 Type 2 diabetes mellitus with foot ulcer (principal); L97.422 Non-pressure chronic ulcer of left heel and midfoot with fat layer exposed; L84 Corns and callosities; R23.3 Spontaneous ecchymoses; I73.9 Peripheral vascular disease, unspecified | CPT/HCPCS: 11042; 87070; 87075; 87077; 87186; 87205; 99213 ==

== ENCOUNTER → 2024-07-30 10:02 | Outpatient (CLI) | payer OTHER, SELFPAY | PROVIDERS: Family Provider Family Medicine; PCP Family Medicine; Referring Provider Family Medicine; Visit Provider Surgery | DX: E11.621 Type 2 diabetes mellitus with foot ulcer (principal); L97.422 Non-pressure chronic ulcer of left heel and midfoot with fat layer exposed; L84 Corns and callosities; R23.3 Spontaneous ecchymoses; I73.9 Peripheral vascular disease, unspecified; Z79.01 Long term (current) use of anticoagulants; Z95.0 Presence of cardiac pacemaker | CPT/HCPCS: 11042; 99213 ==

== ENCOUNTER → 2024-07-30 10:51 | Outpatient (CLI) | payer OTHER, SELFPAY ==
--- NOTE | 2024-07-30 10:52 | DI.RAD.S_ITS ---
PROCEDURE: XR FOOT LT MIN 3V INDICATIONS: Eval osteo. Ulcer of left posterior lateral heel. TECHNIQUE: 3 views of the foot were acquired. COMPARISON: [facility], [place], [place] BONE 3 PHASE, 04/28/2024, 15:50. [facility], CR, XR FOOT LT MIN 3V, 03/12/2024, 14:32. [facility], CR, XR FOOT RT MIN 3V, 01/09/2024, 11:15. FINDINGS: Bones: No fractures or dislocations. Resection at the 2nd digit distal phalanx. Screw fixation at the medial midfoot. The fractured screw is less conspicuous. Tibiotalar joint arthroplasty. No suspicious bony lesions. Soft tissues: No tibiotalar joint effusion. Achilles tendon appears normal. Arterial vascular calcifications. IMPRESSION: No interval change appreciated. No osseous erosion is identified. Multiples fixation screws at the medial midfoot. Previously fractured screw is not well identified. Tibiotalar joint arthroplasty. Dictated by: Chaparro Rogers M.D. on 08/02/2024 at 18:27 Approved by: Chaparro Rogers M.D. on 08/02/2024 at 18:37
== END ==
PROVIDERS: Family Provider Family Medicine; PCP Family Medicine; Referring Provider Physician Assistant; Visit Provider Physician Assistant
DX: L97.422 Non-pressure chronic ulcer of left heel and midfoot with fat layer exposed (principal); E11.621 Type 2 diabetes mellitus with foot ulcer; L84 Corns and callosities; R23.3 Spontaneous ecchymoses; I73.9 Peripheral vascular disease, unspecified; Z79.01 Long term (current) use of anticoagulants; Z95.0 Presence of cardiac pacemaker
CPT/HCPCS: 11042; 73630

== ENCOUNTER → 2024-08-05 13:11 | Outpatient (CLI) | payer OTHER, SELFPAY | LOC: WC 13:11 | PROVIDERS: Family Provider Family Medicine; PCP Family Medicine; Referring Provider Family Medicine; Visit Provider Physician Assistant | DX: E11.621 Type 2 diabetes mellitus with foot ulcer (principal); L97.422 Non-pressure chronic ulcer of left heel and midfoot with fat layer exposed; L84 Corns and callosities; R23.3 Spontaneous ecchymoses; I73.9 Peripheral vascular disease, unspecified; I50.9 Heart failure, unspecified; I25.10 Atherosclerotic heart disease of native coronary artery without angina pectoris; Z95.0 Presence of cardiac pacemaker | CPT/HCPCS: 11042; 99213 ==

== ENCOUNTER → 2024-08-12 14:04 | Outpatient (CLI) | payer OTHER, SELFPAY | PROVIDERS: Family Provider Family Medicine; PCP Family Medicine; Referring Provider Family Medicine; Visit Provider Surgery | DX: E11.621 Type 2 diabetes mellitus with foot ulcer (principal); L97.426 Non-pressure chronic ulcer of left heel and midfoot with bone involvement without evidence of necrosis; L84 Corns and callosities; E11.42 Type 2 diabetes mellitus with diabetic polyneuropathy; E11.51 Type 2 diabetes mellitus with diabetic peripheral angiopathy without gangrene | CPT/HCPCS: 11042 ==

== ENCOUNTER → 2024-08-19 10:07 | Outpatient (CLI) | payer OTHER, SELFPAY | PROVIDERS: Family Provider Family Medicine; PCP Family Medicine; Referring Provider Family Medicine; Visit Provider Surgery | DX: E11.621 Type 2 diabetes mellitus with foot ulcer (principal); E11.42 Type 2 diabetes mellitus with diabetic polyneuropathy; L97.422 Non-pressure chronic ulcer of left heel and midfoot with fat layer exposed; L84 Corns and callosities; I73.9 Peripheral vascular disease, unspecified; Z79.01 Long term (current) use of anticoagulants | CPT/HCPCS: 11042 ==

== ENCOUNTER → 2024-08-26 09:58 | Outpatient (CLI) | payer OTHER, SELFPAY | PROVIDERS: Family Provider Family Medicine; PCP Family Medicine; Referring Provider Family Medicine; Visit Provider Surgery | DX: E11.621 Type 2 diabetes mellitus with foot ulcer (principal); L97.426 Non-pressure chronic ulcer of left heel and midfoot with bone involvement without evidence of necrosis; L84 Corns and callosities; I73.9 Peripheral vascular disease, unspecified | CPT/HCPCS: 11042 ==

== ENCOUNTER → 2024-09-09 10:59 | Outpatient (CLI) | payer OTHER, SELFPAY | PROVIDERS: Family Provider Family Medicine; PCP Family Medicine; Referring Provider Family Medicine; Visit Provider Surgery | DX: E11.621 Type 2 diabetes mellitus with foot ulcer (principal); L97.422 Non-pressure chronic ulcer of left heel and midfoot with fat layer exposed; L84 Corns and callosities; I73.9 Peripheral vascular disease, unspecified; I50.9 Heart failure, unspecified; I25.10 Atherosclerotic heart disease of native coronary artery without angina pectoris | CPT/HCPCS: 11042; 99213 ==

== ENCOUNTER → 2024-09-16 10:33 | Outpatient (CLI) | payer OTHER, SELFPAY | PROVIDERS: Family Provider Family Medicine; PCP Family Medicine; Referring Provider Family Medicine; Visit Provider Surgery | DX: E11.621 Type 2 diabetes mellitus with foot ulcer (principal); L97.422 Non-pressure chronic ulcer of left heel and midfoot with fat layer exposed; L84 Corns and callosities; I73.9 Peripheral vascular disease, unspecified; I11.0 Hypertensive heart disease with heart failure; I50.9 Heart failure, unspecified; E78.5 Hyperlipidemia, unspecified; I48.91 Unspecified atrial fibrillation; Z79.01 Long term (current) use of anticoagulants | CPT/HCPCS: 11042 ==

== ENCOUNTER → 2024-09-24 09:49 | Outpatient (CLI) | payer OTHER, SELFPAY | PROVIDERS: Family Provider Family Medicine; PCP Family Medicine; Referring Provider Family Medicine; Visit Provider Physician Assistant | DX: E11.621 Type 2 diabetes mellitus with foot ulcer (principal); L97.422 Non-pressure chronic ulcer of left heel and midfoot with fat layer exposed; I73.9 Peripheral vascular disease, unspecified; I10 Essential (primary) hypertension; E78.5 Hyperlipidemia, unspecified; I48.91 Unspecified atrial fibrillation; Z79.01 Long term (current) use of anticoagulants | CPT/HCPCS: 11042; 87070; 87075; 87205; 99213; 99214 ==

== ENCOUNTER → 2024-10-01 10:51 | Outpatient (CLI) | payer OTHER, SELFPAY | PROVIDERS: Family Provider Family Medicine; PCP Family Medicine; Referring Provider Family Medicine; Visit Provider Physician Assistant | DX: E11.621 Type 2 diabetes mellitus with foot ulcer (principal); L97.428 Non-pressure chronic ulcer of left heel and midfoot with other specified severity; R23.3 Spontaneous ecchymoses; I73.9 Peripheral vascular disease, unspecified; Z79.2 Long term (current) use of antibiotics | CPT/HCPCS: 11042; 99214 ==

== ENCOUNTER → 2024-10-07 10:43 | Outpatient (CLI) | payer OTHER, SELFPAY | PROVIDERS: Family Provider Family Medicine; PCP Family Medicine; Referring Provider Family Medicine; Visit Provider Surgery | DX: E11.42 Type 2 diabetes mellitus with diabetic polyneuropathy (principal); E11.621 Type 2 diabetes mellitus with foot ulcer; L97.428 Non-pressure chronic ulcer of left heel and midfoot with other specified severity; R23.3 Spontaneous ecchymoses; I73.9 Peripheral vascular disease, unspecified | CPT/HCPCS: 11042 ==

== ENCOUNTER → 2024-10-07 13:44 | Outpatient (CLI) | payer OTHER, SELFPAY ==
[2024-10-07 14:17] LABS: Estimated Glomerular Filt Rate 59 mL/min (>60)
--- NOTE | 2024-10-07 14:17 | DI.CT.S_ITS ---
PROCEDURE: CT LE LT W CON INDICATIONS: posterior heel ulcer TECHNIQUE: Noncontrast 1-1.5 mm axial sections acquired from above the tibiotalar joint to the bottom of the calcaneus, with coronal and sagittal reformats. For radiation dose reduction, the following was used: automated exposure control, adjustment of mA and/or kV according to patient size. COMPARISON: [facility], CR, XR TIBIA FIBULA LT 2V, 11/21/2023, 12:44. [facility], [place], NM BONE 3 PHASE, 04/28/2024, 15:50. [facility], CR, XR FOOT LT MIN 3V, 07/30/2024, 10:54. FINDINGS: Image quality: Excellent. Bones: Postsurgical changes are seen from mortise joint arthroplasty. The lateral portion of the tibial component abuts the medial fibula with mild osseous remodeling. Arthroplasty positioning appears unchanged. Heterotopic calcifications are seen surrounding the joint. Screw tracks from prior removed surgical hardware at the lateral fibula with osseous bridging across the tibiofibular syndesmosis. Prior subtalar arthrodesis with partial osseous bridging and subsequent hardware removal. Medial midfoot fixation hardware again seen with osseous bridging across the navicular 1st cuneiform articulation and 1st tarsometatarsal joints. There is focal fracture of the longest longitudinally oriented screw. 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 No definite cortical destruction is seen at the posterior lateral calcaneus adjacent to the skin ulcer. Soft tissues: Deep skin ulceration at the posterior lateral aspect of the heel extending to the depth of the underlying calcaneus. No focal fluid collection is seen. Nonspecific subcutaneous edema is seen surrounding the ankle. The adjacent Achilles tendon insertion appears to be intact. However, the tendons, ligaments, and articular cartilages are not well evaluated with CT. Arterial vascular calcifications are present. There is fatty infiltration of the foot musculature consistent with chronic denervation changes. IMPRESSION: 1. Deep skin ulceration at the posterior lateral aspect of the heel to the depth of the underlying calcaneus. No fluid collection or abscess is seen. No cortical erosion or destruction is seen with CT to suggest osteomyelitis. MRI could be performed for more sensitive evaluation for early disease if there is continued clinical concern. 2. Postsurgical changes from tibiotalar arthroplasty and multifocal midfoot and hindfoot arthrodesis, not significantly changed when compared to prior exams. 3. Fatty infiltration of the foot musculature is consistent with chronic denervation changes. Approved by: Francisco Perdue M.D. on 10/08/2024 at 9:48
== END ==
PROVIDERS: Radiology Diagnostic Radiology; Family Provider Family Medicine; PCP Family Medicine; Referring Provider Physician Assistant; Visit Provider Physician Assistant
DX: L97.429 Non-pressure chronic ulcer of left heel and midfoot with unspecified severity (principal); Z96.662 Presence of left artificial ankle joint; Z98.1 Arthrodesis status
CPT/HCPCS: 36415; 73700; 82565

== ENCOUNTER → 2024-10-14 09:44 | Outpatient (CLI) | payer OTHER, SELFPAY | PROVIDERS: Family Provider Family Medicine; PCP Family Medicine; Referring Provider Family Medicine; Visit Provider Surgery | DX: E11.621 Type 2 diabetes mellitus with foot ulcer (principal); L97.428 Non-pressure chronic ulcer of left heel and midfoot with other specified severity; R23.3 Spontaneous ecchymoses; I73.9 Peripheral vascular disease, unspecified; I25.10 Atherosclerotic heart disease of native coronary artery without angina pectoris; I11.0 Hypertensive heart disease with heart failure; I50.9 Heart failure, unspecified; I48.91 Unspecified atrial fibrillation; Z79.01 Long term (current) use of anticoagulants | CPT/HCPCS: 11042; 99213 ==

== ENCOUNTER → 2024-10-21 14:28 | Outpatient (CLI) | payer OTHER, SELFPAY | PROVIDERS: Family Provider Family Medicine; PCP Family Medicine; Referring Provider Family Medicine; Visit Provider Surgery | DX: E11.621 Type 2 diabetes mellitus with foot ulcer (principal); L97.428 Non-pressure chronic ulcer of left heel and midfoot with other specified severity; L97.412 Non-pressure chronic ulcer of right heel and midfoot with fat layer exposed; I73.9 Peripheral vascular disease, unspecified; R23.3 Spontaneous ecchymoses | CPT/HCPCS: 11042; 99213 ==

== ENCOUNTER → 2024-10-28 11:23 | Outpatient (CLI) | payer OTHER, SELFPAY | PROVIDERS: Family Provider Family Medicine; PCP Family Medicine; Referring Provider Family Medicine; Visit Provider Surgery | DX: E11.621 Type 2 diabetes mellitus with foot ulcer (principal); L97.428 Non-pressure chronic ulcer of left heel and midfoot with other specified severity; L97.412 Non-pressure chronic ulcer of right heel and midfoot with fat layer exposed; E11.51 Type 2 diabetes mellitus with diabetic peripheral angiopathy without gangrene; I11.0 Hypertensive heart disease with heart failure; I50.89 Other heart failure; E78.5 Hyperlipidemia, unspecified; I48.91 Unspecified atrial fibrillation; Z79.01 Long term (current) use of anticoagulants; Z79.2 Long term (current) use of antibiotics; Z86.73 Personal history of transient ischemic attack (TIA), and cerebral infarction without residual deficits | CPT/HCPCS: 11042 ==

== ENCOUNTER → 2024-11-04 10:10 | Outpatient (CLI) | payer OTHER, SELFPAY | LOC: WC 10:11 | PROVIDERS: Family Provider Family Medicine; PCP Family Medicine; Referring Provider Family Medicine; Visit Provider Surgery | DX: E11.621 Type 2 diabetes mellitus with foot ulcer (principal); L97.422 Non-pressure chronic ulcer of left heel and midfoot with fat layer exposed; L97.412 Non-pressure chronic ulcer of right heel and midfoot with fat layer exposed; E11.42 Type 2 diabetes mellitus with diabetic polyneuropathy; E11.51 Type 2 diabetes mellitus with diabetic peripheral angiopathy without gangrene | CPT/HCPCS: 11042 ==

== ENCOUNTER → 2024-11-08 15:10 | Outpatient (CLI) | payer OTHER, SELFPAY | PROVIDERS: Family Provider Family Medicine; PCP Family Medicine; Referring Provider Family Medicine; Visit Provider Surgery | DX: L97.428 Non-pressure chronic ulcer of left heel and midfoot with other specified severity (principal); E11.621 Type 2 diabetes mellitus with foot ulcer; E11.42 Type 2 diabetes mellitus with diabetic polyneuropathy; I73.9 Peripheral vascular disease, unspecified; L97.412 Non-pressure chronic ulcer of right heel and midfoot with fat layer exposed | CPT/HCPCS: 99183; G0277 ==

== ENCOUNTER → 2024-11-09 12:57 | Outpatient (CLI) | payer OTHER, SELFPAY | PROVIDERS: Family Provider Family Medicine; PCP Family Medicine; Referring Provider Family Medicine; Visit Provider Surgery | DX: L97.428 Non-pressure chronic ulcer of left heel and midfoot with other specified severity (principal); E11.621 Type 2 diabetes mellitus with foot ulcer; E11.42 Type 2 diabetes mellitus with diabetic polyneuropathy; I73.9 Peripheral vascular disease, unspecified; L97.412 Non-pressure chronic ulcer of right heel and midfoot with fat layer exposed | CPT/HCPCS: 99183; G0277 ==

== ENCOUNTER → 2024-11-10 14:20 | Outpatient (CLI) | payer OTHER, SELFPAY | PROVIDERS: Family Provider Family Medicine; PCP Family Medicine; Referring Provider Family Medicine; Visit Provider Surgery | DX: L97.428 Non-pressure chronic ulcer of left heel and midfoot with other specified severity (principal); E11.621 Type 2 diabetes mellitus with foot ulcer; E11.42 Type 2 diabetes mellitus with diabetic polyneuropathy; I73.9 Peripheral vascular disease, unspecified; L97.412 Non-pressure chronic ulcer of right heel and midfoot with fat layer exposed | CPT/HCPCS: 99183; G0277 ==

== ENCOUNTER → 2024-11-11 11:45 | Outpatient (CLI) | payer OTHER, SELFPAY | LOC: WC 11:48 | PROVIDERS: Family Provider Family Medicine; PCP Family Medicine; Referring Provider Family Medicine; Visit Provider Surgery | DX: E11.621 Type 2 diabetes mellitus with foot ulcer (principal); L97.422 Non-pressure chronic ulcer of left heel and midfoot with fat layer exposed; E11.42 Type 2 diabetes mellitus with diabetic polyneuropathy; Z79.01 Long term (current) use of anticoagulants | CPT/HCPCS: 11042; 99183; 99213; G0277 ==

== ENCOUNTER → 2024-11-12 10:47 | Outpatient (CLI) | payer OTHER, SELFPAY | LOC: WC 10:52 | PROVIDERS: Family Provider Family Medicine; PCP Family Medicine; Referring Provider Family Medicine; Visit Provider Physician Assistant | DX: L97.428 Non-pressure chronic ulcer of left heel and midfoot with other specified severity (principal); E11.621 Type 2 diabetes mellitus with foot ulcer; E11.42 Type 2 diabetes mellitus with diabetic polyneuropathy; I73.9 Peripheral vascular disease, unspecified; L97.412 Non-pressure chronic ulcer of right heel and midfoot with fat layer exposed | CPT/HCPCS: 99183; G0277 ==

== ENCOUNTER → 2024-11-15 13:00 | Outpatient (CLI) | payer OTHER, SELFPAY | LOC: WC 13:02 | PROVIDERS: Family Provider Family Medicine; PCP Family Medicine; Referring Provider Family Medicine; Visit Provider Surgery | DX: L97.428 Non-pressure chronic ulcer of left heel and midfoot with other specified severity (principal); E11.621 Type 2 diabetes mellitus with foot ulcer; E11.42 Type 2 diabetes mellitus with diabetic polyneuropathy; I73.9 Peripheral vascular disease, unspecified; L97.412 Non-pressure chronic ulcer of right heel and midfoot with fat layer exposed | CPT/HCPCS: 99183; G0277 ==

== ENCOUNTER → 2024-11-16 13:47 | Outpatient (CLI) | payer OTHER, SELFPAY | LOC: WC 13:49 | PROVIDERS: Family Provider Family Medicine; PCP Family Medicine; Referring Provider Family Medicine; Visit Provider Surgery | DX: E11.621 Type 2 diabetes mellitus with foot ulcer (principal); L97.422 Non-pressure chronic ulcer of left heel and midfoot with fat layer exposed; I73.9 Peripheral vascular disease, unspecified; E11.42 Type 2 diabetes mellitus with diabetic polyneuropathy; R60.0 Localized edema | CPT/HCPCS: 11042; 87070; 87075; 87205; 99183; G0277 ==

== ENCOUNTER → 2024-11-17 13:15 | Outpatient (CLI) | payer OTHER, SELFPAY | LOC: WC 13:18 | PROVIDERS: Family Provider Family Medicine; PCP Family Medicine; Referring Provider Family Medicine; Visit Provider Surgery | DX: L97.428 Non-pressure chronic ulcer of left heel and midfoot with other specified severity (principal); E11.621 Type 2 diabetes mellitus with foot ulcer; E11.42 Type 2 diabetes mellitus with diabetic polyneuropathy; I73.9 Peripheral vascular disease, unspecified | CPT/HCPCS: 99183; G0277 ==

== ENCOUNTER → 2024-11-18 13:53 | Outpatient (CLI) | payer OTHER, SELFPAY | LOC: WC 13:54 | PROVIDERS: Family Provider Family Medicine; PCP Family Medicine; Referring Provider Family Medicine; Visit Provider Surgery | DX: E11.621 Type 2 diabetes mellitus with foot ulcer (principal); L97.428 Non-pressure chronic ulcer of left heel and midfoot with other specified severity; L98.8 Other specified disorders of the skin and subcutaneous tissue; R23.3 Spontaneous ecchymoses; R60.0 Localized edema; E11.42 Type 2 diabetes mellitus with diabetic polyneuropathy; I73.9 Peripheral vascular disease, unspecified | CPT/HCPCS: 99183; 99212; G0277 ==

== ENCOUNTER → 2024-11-19 13:07 | Outpatient (CLI) | payer OTHER, SELFPAY | LOC: WC 13:08 | PROVIDERS: Family Provider Family Medicine; PCP Family Medicine; Referring Provider Family Medicine; Visit Provider Physician Assistant | DX: L97.428 Non-pressure chronic ulcer of left heel and midfoot with other specified severity (principal); E11.621 Type 2 diabetes mellitus with foot ulcer; E11.42 Type 2 diabetes mellitus with diabetic polyneuropathy; I73.9 Peripheral vascular disease, unspecified | CPT/HCPCS: 99183; G0277 ==

== ENCOUNTER → 2024-11-22 13:44 | Outpatient (CLI) | payer OTHER, SELFPAY | LOC: WC 13:45 | PROVIDERS: Family Provider Family Medicine; PCP Family Medicine; Referring Provider Family Medicine; Visit Provider Surgery | DX: L97.428 Non-pressure chronic ulcer of left heel and midfoot with other specified severity (principal); E11.621 Type 2 diabetes mellitus with foot ulcer; E11.42 Type 2 diabetes mellitus with diabetic polyneuropathy; I73.9 Peripheral vascular disease, unspecified | CPT/HCPCS: 99183; G0277 ==

== ENCOUNTER → 2024-11-23 13:39 | Outpatient (CLI) | payer OTHER, SELFPAY | LOC: WC 13:40 | PROVIDERS: Family Provider Family Medicine; PCP Family Medicine; Referring Provider Family Medicine; Visit Provider Surgery | DX: L97.428 Non-pressure chronic ulcer of left heel and midfoot with other specified severity (principal); E11.621 Type 2 diabetes mellitus with foot ulcer; E11.42 Type 2 diabetes mellitus with diabetic polyneuropathy; I73.9 Peripheral vascular disease, unspecified | CPT/HCPCS: 99183; G0277 ==

== ENCOUNTER → 2024-11-24 14:12 | Outpatient (CLI) | payer OTHER, SELFPAY | LOC: WC 14:14 | PROVIDERS: Family Provider Family Medicine; PCP Family Medicine; Referring Provider Family Medicine; Visit Provider Surgery | DX: L97.428 Non-pressure chronic ulcer of left heel and midfoot with other specified severity (principal); E11.621 Type 2 diabetes mellitus with foot ulcer; E11.42 Type 2 diabetes mellitus with diabetic polyneuropathy; I73.9 Peripheral vascular disease, unspecified | CPT/HCPCS: 99183; G0277 ==

== ENCOUNTER → 2024-11-25 13:19 | Outpatient (CLI) | payer OTHER, SELFPAY | LOC: WC 13:29 | PROVIDERS: Family Provider Family Medicine; PCP Family Medicine; Referring Provider Family Medicine; Visit Provider Surgery | DX: L97.428 Non-pressure chronic ulcer of left heel and midfoot with other specified severity (principal); E11.621 Type 2 diabetes mellitus with foot ulcer; E11.42 Type 2 diabetes mellitus with diabetic polyneuropathy; I73.9 Peripheral vascular disease, unspecified; R23.3 Spontaneous ecchymoses; R60.0 Localized edema; I11.0 Hypertensive heart disease with heart failure; I50.9 Heart failure, unspecified; I25.10 Atherosclerotic heart disease of native coronary artery without angina pectoris | CPT/HCPCS: 11042; 99183; 99213; G0277 ==

== ENCOUNTER → 2024-11-26 11:11 | Outpatient (CLI) | payer OTHER, SELFPAY | PROVIDERS: Family Provider Family Medicine; PCP Family Medicine; Referring Provider Family Medicine; Visit Provider Surgery | DX: L97.428 Non-pressure chronic ulcer of left heel and midfoot with other specified severity (principal); E11.621 Type 2 diabetes mellitus with foot ulcer; E11.42 Type 2 diabetes mellitus with diabetic polyneuropathy; I73.9 Peripheral vascular disease, unspecified | CPT/HCPCS: 99183; G0277 ==

== ENCOUNTER → 2024-11-29 14:23 | Outpatient (CLI) | payer OTHER, SELFPAY | PROVIDERS: Family Provider Family Medicine; PCP Family Medicine; Referring Provider Family Medicine; Visit Provider Surgery | DX: L97.428 Non-pressure chronic ulcer of left heel and midfoot with other specified severity (principal); E11.621 Type 2 diabetes mellitus with foot ulcer; E11.42 Type 2 diabetes mellitus with diabetic polyneuropathy; I73.9 Peripheral vascular disease, unspecified | CPT/HCPCS: 99183; G0277 ==

== ENCOUNTER → 2024-11-30 10:01 | Outpatient (CLI) | payer OTHER, SELFPAY | PROVIDERS: Family Provider Family Medicine; PCP Family Medicine; Referring Provider Family Medicine; Visit Provider Surgery | DX: L97.428 Non-pressure chronic ulcer of left heel and midfoot with other specified severity (principal); E11.621 Type 2 diabetes mellitus with foot ulcer; E11.42 Type 2 diabetes mellitus with diabetic polyneuropathy; I73.9 Peripheral vascular disease, unspecified | CPT/HCPCS: 99183; G0277 ==

== ENCOUNTER → 2024-12-01 10:22 | Outpatient (CLI) | payer OTHER, SELFPAY | LOC: WC 12:26 | PROVIDERS: Family Provider Family Medicine; PCP Family Medicine; Referring Provider Family Medicine; Visit Provider Surgery | DX: L97.428 Non-pressure chronic ulcer of left heel and midfoot with other specified severity (principal); E11.621 Type 2 diabetes mellitus with foot ulcer; E11.42 Type 2 diabetes mellitus with diabetic polyneuropathy; I73.9 Peripheral vascular disease, unspecified | CPT/HCPCS: 99183; G0277 ==

== ENCOUNTER → 2024-12-02 13:32 | Outpatient (CLI) | payer OTHER, SELFPAY ==
--- NOTE | 2024-12-02 | OV.WND_ITS ---
PROGRESS NOTE DETAILS PATIENT NAME: RANULFO CARUSO PATIENT NUMBER: [id number] CLINICIAN: JUAN A MIRELES RN PATIENT DATE OF : 1940 PHYSICIAN / DEVELOPMENTAL SERVICES WORKER: WESLEY ENCISO PATIENT SUBJECTIVE CHIEF COMPLAINT THIS INFORMATION WAS OBTAINED FROM THE PATIENT. LEFT FOOT GENERAL NOTES LEFT HEEL DIABETIC ULCER. ALLERGIES CEPHALEXIN (SEVERITY: MODERATE, REACTION: VOMITING, DIARRHEA), LINEZOLID (REACTION: VOMITING, DIARRHEA), HYDROFERA BLUE READY (SEVERITY: MODERATE, REACTION: RASH) HPI THIS INFORMATION WAS OBTAINED FROM THE PATIENT. THE FOLLOWING HPI ELEMENTS WERE DOCUMENTED FOR THE PATIENT'S WOUND: LOCATION: L HEEL DURATION: 12/26/2023 CONTEXT: ARTERIAL, DIABETIC THE PATIENT IS AN 84 YO MALE WITH PMH SEVERE PERIPHERAL ARTERY DISEASE, DMT2, HTN, HLD, AFIB ON XARELTO, TIA, CHF RETURNS TO WOUND CLINIC FOR FOLLOW UP OF A HERNANDEZ 3 DIABETIC ULCER LEFT HEEL. THE PATIENT IS CURRENTLY RECEIVING DRESSING CHANGES WITH SILVER COLLAGEN WITH HEEL PROTECTORS AT NIGHT AND A DEFENDER BOOT FOR PRESSURE OFFLOADING. THE PATIENT IS CURRENTLY UNDERGOING HYPERBARIC OXYGEN THERAPY AND HAS RECEIVED 19 TREATMENTS SO FAR WHICH HE HAS TOLERATED WITHOUT ANY DIFFICULTY. HE WAS PREVIOUSLY UNABLE TO TOLERATE A WOUND VAC. SKIN SUBSTITUTE REQUEST WAS DENIED BY INSURANCE. HE HAD FOLLOW UP WITH VASCULAR WHO ADVISED NO SURGICAL INTERVENTION DUE TO RISKS > BENEFITS. THE PATIENT DENIES FEVER OR CHILLS AND REPORTS A GOOD APPETITE AND GOOD CONTROL OF BLOOD SUGARS. THE PATIENT IS TAKING PROTEIN SUPPLEMENTS. THE PATIENT DENIES HAVING ANY RECENT CHANGES IN HIS OVERALL HEALTH. ON EXAM TODAY THE MEASUREMENTS ARE MUCH IMPROVED AND TISSUE QUALITY IS CONTINUING TO IMPROVE. THE PATIENT IS FOLLOWED BY DR. TORRES AND COMPLETED DALBOVANCIN AND HAS RECENTLY COMPLETED A PROLONGED COURSE OF DOXYCYCLINE. LABS 11/16/24: CULTURE GREW SCANT GROWTH MIXED SKIN SABA 10/09/24: ELECTROLYTES NORMAL, LFTS NORMAL, CALCIUM 10.9 10/07/24: CT SCAN: DEEP SKIN ULCERATION AT THE POSTERIOR LATERAL ASPECT OF THE HEEL TO THE DEPTH OF THE UNDERLYING CALCANEUS. NO FLUID COLLECTION OR ABSCESS IS SEEN. NO CORTICAL EROSION OR DESTRUCTION IS SEEN WITH CT TO SUGGEST OSTEOMYELITIS. 08/02/24: XRAY LEFT HEEL - NO INTERVAL CHANGE APPRECIATED. NO OSSEOUS EROSION IS IDENTIFIED. 07/23/24: CULTURE STAPHYLOCOCCUS LUGDUNENSIS, KOCURIA KISTINAE 04/28/24:BONE SCAN IMPRESSION READ POTENTIAL OSTEOMYELITIS INVOLVING THE RIGHT LATERAL ANKLE, RECOMMENDED MRI 04/06/24: HEMOGLOBIN A1C 5.8 SHADY RANULFO Steve [id number] 1940 03/12/24: LEFT FOOT XRAY NO BONY EROSIONS TO SUGGEST OSTEOMYELITIS. DISRUPTED ARTHORDESIS SCREW. 02/20/24: WBC 9.3, HGB 11.5, HCT 35.5, MCH 89.4, EOS 500, CR 0.96, GFR >60, GLUCOSE 110 02/13/24: CULTURE TO RIGHT HEEL KLEBSIELLA OXYTOCA AND LEFT PRETIBIAL STAPH EPIDERMIDIS 01/09/24: RIGHT FOOT XRAY WITH FRACTURE OF SCREW AND LUCENCY TO 2ND DIGIT FRACTURE VS OSTEO, REFERRED TO PODIATRY 01/09/24: CULTURE RIGHT FOOT CORYNEBACTERIUM STRIATUM, RX'D LINEZOLID. MRI C/I D/T DEFIBRILLATOR 11/28/23: CULTURE RIGHT FOOT CORYNEBACTERIUM STRIATUM 11/28/23: BILATERAL CT ANGIO, ID TO START IV ANTIBIOTICS 11/21/23 LEFT CALCANEAL XRAY NO EVIDENCE OSTEOMYELITIS, SOFT TISSUE SWELLING, SEVERE ATHEROSCLEROSIS. TIB/FIB XRAY ORTHOPEDIC HARDWARE NOTED, SEVERE ATHEROSCLEROTIC VASCULAR CALCIFICATIONS 11/21/23 ARTERIAL US DAMPENED WAVEFORMS BILATERALLY WITHIN INFRAGENICULATE ARTERIES IN ADDITION TO HEAVILY CALCIFIED VESSELS. FOCAL HEMODYNAMICALLY SIGNIFICANT STENOSIS AT LEVEL OF POPLITEAL ARTERIES CANNOT BE EXCLUDED. IF FURTHER CHARACTERIZATION WARRANTED TO EVALUATE FOR THERAPEUTIC INTERVENTION, CTA WITH B/L LOWER EXTREMITY RUNOFF RECOMMENDED 11/14/23 GUILLE: PAD, NOTES REQUESTED FROM VASCULAR 11/12/23 CULTURE POS FOR PSEUDOMONAS, E COLI, K PNEUMONIA PER PT LAST A1C W/IN 2 MOS WNL MEDICAL HISTORY THIS INFORMATION WAS OBTAINED FROM THE CHART, PATIENT. PATIENT HAS A MEDICAL HISTORY OF: ARTHRITIS TYPE II DIABETES HEART MURMUR HYPERTENSION MEMORY LOSS (SHORT TERM) TRANSIENT ISCHEMIC ATTACK (TIA) - 10/06/2023 PAD LOWER EXTREMITY EDEMA ANEMIA CHRONIC CHF EXERTIONAL DYSPNEA INSOMNIA LUMBAR REGION WITH NEUROGENIC CLAUDICATION VENTRICULAR TACHYCARDIA (ICD IMPLANTED (12/2022)) ISCHEMIC CARDIOMYOPATHY GASTROESOPHAGEAL REFLUX DISEASE IRON DEFICIENCY B12 DEFICIENCY ADHD BASAL CELL CARCINOMA (NOSE) ATRIAL FIBRILLATION OBSTRUCTIVE SLEEP APNEA DIVERTICULITIS DYSLIPIDEMIA MYOCARDIAL INFARCTION ([place]) (09/2022) ADDITIONAL INFORMATION DOES PATIENT HAVE A HISTORY OF CANCER? YES? COMPLETE ALL QUESTIONS.: YES LOCATION OF CANCER: SKIN (NOSE) SURGICAL HISTORY RANULFO CARUSO [id number] 1940 THIS INFORMATION WAS OBTAINED FROM THE CHART, PATIENT. PATIENT HAS A SURGICAL HISTORY OF: CORONARY ARTERY BYPASS GRAFT (CABG)- CARDIAC SURGERY- CARDIAC VALVE REPLACEMENT- CARDIAC VALVE SURGERY- CATARACT SURGERY- 02/27/2022 (LEFT) CATARACT SURGERY- 03/20/2022 (RIGHT) HIP REPLACEMENT, TOTAL JOINT REPLACEMENT- 12/17/2021 (RIGHT) RECONSTRUCTION OF BOTH FEET- (ARTIFICIAL ANKLE OF LEFT FOOT) TOOTH EXTRACTION AND IMPLANTS- PROSTATE SURGERY- TONSILLECTOMY AND ADENOIDECTOMY- (89 (< AGE 12)) VASECTOMY- OBJECTIVE VITALS HEIGHT/LENGTH: 77 IN (195.58 CM), WEIGHT: 199.7 LBS (90.77 KGS), BMI: 23.7, TEMPERATURE: 97.5 ?F (36.39 ?C), PULSE: 77 BPM, RESPIRATORY RATE: 16 BREATHS/MIN, BLOOD PRESSURE: 120/75 MMHG, PULSE OXIMETRY: 100 %. GENERAL NOTES CBG POST HBO: 163. PHYSICAL EXAM CONSTITUTIONAL: VITAL SIGNS REVIEWED AND NOTED. GENERALIZED WEAKNESS. IN NO APPARENT DISTRESS. RESPIRATORY: EVEN RESPIRATIONS WITHOUT USE OF ACCESSORY MUSCLES. NO INTERCOASTAL RETRACTIONS NOTED. EVEN AND NON LABORED RESPIRATION. INTEGUMENTARY (HAIR, SKIN): NO ERYTHEMA. NO SWELLING OR TENDERNESS. SEE WOUND ASSESSMENT. SKIN WARM AND DRY. NO RASHES. NEUROLOGICAL: DECREASED LOWER EXTREMITY SENSATION. PSYCHIATRIC: ORIENTATION TO TIME, PLACE AND PERSON: NORMAL AFFECT WITH NORMAL THOUGHT PATTERN. ADDITIONAL INFORMATION THE PATIENT'S POTENTIAL TO HEAL IS: FAIR. WOUND ASSESSMENT(S) WOUND #6 LEFT HEEL IS A CHRONIC HERNANDEZ GRADE 3 DIABETIC ULCER ACQUIRED ON 12/26/2023 AND HAS RECEIVED A STATUS OF NOT HEALED. INITIAL WOUND ENCOUNTER MEASUREMENTS ARE 1.9CM LENGTH X 1.1CM WIDTH X 0.3 CM DEPTH, WITH AN AREA OF 2.09 SQ CM AND A VOLUME OF 0.627 CUBIC CM.INITIAL WOUND ENCOUNTER PREVIOUS MEASUREMENTS FROM 11/25/2024 ARE 2.5CM LENGTH X 1.7CM WIDTH X 0.3CM DEPTH, WITH AN AREA OF 4.25 SQ CM AND A VOLUME OF 1.275 CUBIC CM. TENDON AND ADIPOSE ARE EXPOSED. NO TUNNELING HAS BEEN NOTED. NO SINUS TRACT HAS BEEN NOTED. NO UNDERMINING HAS BEEN NOTED. THERE IS A MODERATE AMOUNT OF SEROUS DRAINAGE NOTED WHICH HAS NO ODOR. THE PATIENT REPORTS A WOUND PAIN OF LEVEL 0/10. THE WOUND MARGIN IS UNATTACHED WOUND BED HAS YES, BRIGHT RED, PINK, FIRM, GRANULATION, YES SLOUGH, NO ESCHAR, YES EPITHELIALIZATION. THE PERIWOUND SKIN EXHIBITED EDEMA, MACERATION AND ECCHYMOSIS. THE PERIWOUND SKIN DID NOT EXHIBIT BRAWNY INDURATION, EXCORIATION, INDURATION, CALLUS, CREPITUS, FLUCTUANCE, RASH, ATROPHIE DUSTIN, CYANOSIS, SHADYRANULFO [id number] 1940 ERYTHEMA, HEMOSIDEROSIS, PALLOR AND RUBOR. THE PERIWOUND SKIN WAS MOIST. THE PERIWOUND SKIN WAS NOT FRIABLE AND DRY/SCALY. THE TEMPERATURE OF THE PERIWOUND SKIN IS WNL. PERIWOUND SKIN DOES NOT EXHIBIT SIGNS OR SYMPTOMS OF INFECTION. LOCAL PULSE IS DOPPLER. ADDITIONAL INFORMATION OTHER DEVITALIZED TISSUE PRESENT: BIOFILM ASSESSMENT ACTIVE PROBLEMS ICD-10 (ENCOUNTER DIAGNOSIS) L97.428 - NON-PRESSURE CHRONIC ULCER OF LEFT HEEL AND MIDFOOT WITH OTHER SPECIFIED SEVERITY (ENCOUNTER DIAGNOSIS) E11.621 - TYPE 2 DIABETES MELLITUS WITH FOOT ULCER (ENCOUNTER DIAGNOSIS) E11.42 - TYPE 2 DIABETES MELLITUS WITH DIABETIC POLYNEUROPATHY (ENCOUNTER DIAGNOSIS) I73.9 - PERIPHERAL VASCULAR DISEASE, UNSPECIFIED GENERAL NOTES HERNANDEZ 3 DIABETIC ULCER LEFT HEEL, MEASUREMENTS IMPROVED, TISSUE QUALITY MUCH IMPROVED THE FOLLOWING FACTORS HAVE BEEN IDENTIFIED THAT MAY AFFECT WOUND HEALING: DEVITALIZED TISSUE BIOFILM ADVANCED AGE PRESSURE DIABETES PAD INFECTION GOALS: REMOVE DEVITALIZED TISSUE REMOVE AND PREVENT BIOFILM REDUCE PRESSURE TREAT INFECTION PROTEIN SUPPLEMENTATION PLAN: DEBRIDEMENT, CONTINUE DRESSING CHANGES WITH SILVER COLLAGEN, USE E HOB BOOT FOR PRESSURE OFFLOADING. CONTINUE HYPERBARIC OXYGEN THERAPY. CONTINUE PROTEIN SUPPLEMENTATION, FOLLOW UP IN 1 WEEK FOR RECHECK. THE PATIENT HAS BEEN IMPROVING WITH HYPERBARIC OXYGEN THERAPY AND WE ARE WAITING FOR APPROVAL TO CONTINUE TREATMENT. PROCEDURES WOUND #6 WOUND #6 (DIABETIC ULCER) IS LOCATED ON THE LEFT HEEL. A SKIN/SUBCUTANEOUS TISSUE LEVEL SURGICAL DEBRIDEMENT WITH A TOTAL AREA DEBRIDED OF 2.09 SQ CM. WAS PERFORMED BY WESLEY ENCISO MD. SUBCUTANEOUS WAS REMOVED ALONG WITH DEVITALIZED TISSUE: BIOFILM, EXUDATE AND SLOUGH. THE FOLLOWING INSTRUMENT(S) WERE USED: CURETTE. PAIN CONTROL WAS ACHIEVED USING EMLA LIDOCAINE/PRILOCAINE 2.5%/2.5%. A TIME OUT WAS CONDUCTED PRIOR TO THE START OF THE PROCEDURE. A MODERATE AMOUNT OF BLEEDING WAS CONTROLLED WITH PRESSURE. THE PROCEDURE WAS TOLERATED WELL WITH A PAIN LEVEL OF 0 THROUGHOUT AND A PAIN LEVEL OF 0 FOLLOWING THE PROCEDURE. POST DEBRIDEMENT MEASUREMENTS: 1.9CM LENGTH X 1.1CM WIDTH X 0.4CM DEPTH; WITH AN AREA OF 2.09 SQ CM AND A VOLUME OF 0.836 CUBIC CM. ADDITIONAL INFORMATION RANULFO CARUSO [id number] 1940 MUSCLE FASCIA OR BONE REMOVED AND SENT TO PATHOLOGY?: NO PLAN WOUND ORDERS: WOUND #6 LEFT HEEL HAND HYGIENE HAND HYGIENE - WASH HANDS BEFORE AND AFTER WOUND CARE. CALL THE WOUND CENTER AT [phone] IF YOU HAVE SIGNS OR SYMPTOMS OF INFECTION, FEVER CHILLS OR SHAKES, INCREASED DRAINAGE, INCREASED ODOR OR UNUSUAL REDNESS. AFTER WOUND CENTER HOURS PLEASE NOTIFY YOUR PCP OR GO TO THE EMERGENCY ROOM. CLEANSER CLEANSE WOUND WITH NORMAL SALINE - IN CLINIC. CLEANSE WOUND AND VIVIAN WOUND WITH A NON-CYTOTOXIC WOUND CLEANSER. - VASHE CLEANSER AT HOME. PROCEDURE / ANESTHETIC 5% TOPICAL LIDOCAINE TO WOUND BED PRIOR TO PROCEDURE, IN CLINIC ONLY. DRESSING ORDERS APPLY DRESSING(S) AND SECURE WITH: - PURACOL PLUS AG, MOISTENED WITH NORMAL SALINE OR DISTILLED WATER. OPTIFOAM SECURED WITH TAPE. DRESSING CHANGE FREQUENCY CHANGE DRESSING EVERY OTHER DAY. - OR MORE FREQUENTLY FOR DRAINAGE CONTROL. ADDITIONAL ORDERS: COMPRESSION/EDEMA CONTROL ELEVATE LEG(S) ABOVE THE LEVEL OF THE HEART MUCH POSSIBLE. AVOID STANDING IN ONE POSITION FOR MORE THAN 10 MINUTES. AVOID SITTING WITH LEGS DOWN. DO NOT CROSS LEGS WHEN SITTING. OFF-LOADING / PRESSURE RELIEF TOTAL NON-WEIGHT BEARING USING: - EHOB BOOTS TO BOTH HEELS WHILE IN BED OR RESTING IN A RECLINED POSITION. USE/WEAR WHEN WALKING: - CROC SHOES WITHOUT HEEL BACK TO PREVENT PRESSURE/RUBBING. DIETARY TAKE VITAMIN C 1000MG BY MOUTH DAILY. TAKE ZINC 25MG BY MOUTH DAILY. INCREASE THE PROTEIN IN YOUR DIET. - SUPPLEMENT WITH DIABETIC FRIENDLY PROTEIN SHAKES IN BETWEEN REGULAR MEALS. ACTIVITY OTHER ORDER: - DECREASE ACTIVITY MUCH POSSIBLE WHILE WE ARE CLOSELY MONITORING THE WOUND ON YOUR HEEL. FOLLOW-UP APPOINTMENTS RETURN APPOINTMENT 1 WEEK SCRIBING ATTESTATION I ATTEST, THE NURSE, THAT I SCRIBED THESE ORDERS FOR THE WOUND CARE PROVIDER. PROVIDER REVIEW AND ATTESTATION: REVIEWED AND EVALUATED LABS. REVIEWED HOSPITAL RECORDS. DISCUSSED THE PLAN OF CARE @ BEDSIDE WITH - THE PATIENT AND I AGREE AND ATTEST TO THE ABOVE INFORMATION PROVIDED FROM OTHER LICENSED PROFESSIONALS. PLAN OF CARE: 01. ENSURE/ESTABLISH OPTIMAL BLOOD FLOW : - COMPLETE LOWER EXTREMITY ASSESSMENT STATUS: CONTINUED DATE: 11/25/2024 - PERFORM NON-INVASIVE VASCULAR TESTING (I.E. GUILLE) AND DOCUMENT FINDINGS. CONSIDER REPEATING WHEN WOUND HEALING <40% AFTER 30 DAYS OF WOUND CARE. STATUS: COMPLETED DATE: 11/14/2023 - ORDER VASCULAR CONSULT FOR EVALUATION/TREATMENT AND/OR NON-INVASIVE VASCULAR TESTING. RANULFO CARUSO [id number] 1940 STATUS: COMPLETED DATE: 05/18/2024 02. ASSESS FOR/TREAT INFECTION : - EVALUATE FOR SIGNS AND SYMPTOMS OF INFECTION AND DOCUMENT FINDINGS. STATUS: CONTINUED DATE: 11/25/2024 03. DEBRIDE WEEKLY OR MORE OFTEN PRN : - EVALUATE PATIENT IN CENTER WEEKLY TO ASSESS WOUND BED AND MARGINS FOR NEED FOR DEBRIDEMENT. STATUS: CONTINUED DATE: 11/25/2024 - DEBRIDEMENT BY ANY METHOD TO REMOVE DEVITALIZED/NECROTIC TISSUE TO PROMOTE HEALING AND PREVENT FURTHER COMPLICATIONS. GOAL IS TO STIMULATE AND/OR MAINTAIN ACUTE PHASE OF WOUND HEALING BY REDUCING BACTERIAL BURDEN AND DEVITALIZED/NON-VIABLE TISSUE. STATUS: CONTINUED DATE: 11/25/2024 04. OPTIMIZE GLUCOSE CONTROL AND NUTRITION : - ORDER/REVIEW PERTINENT LABS TO EVALUATE RENAL FUNCTION, GLUCOSE CONTROL, AND NUTRITIONAL STATUS. STATUS: CONTINUED DATE: 11/25/2024 05. OFFLOADING PLAN : - EVALUATE PLAN FOR OFFLOADING STATUS: CONTINUED DATE: 11/25/2024 - ADVISE PATIENT TO OFFLOAD THE FOOT ULCER. (I.E. HALF SHOE, SURGICAL SHOE, INSERT, CUSTOM SHOE, FELT AND FOAM, CAM WALKER, MULTIPODUS SPLINT, TOTAL CONTACT CAST, BI-VALVE CAST, POSTERIOR SPLINT). STATUS: CONTINUED DATE: 11/25/2024 06. OPTIMIZE HOST FACTORS: - ASSESS AND REVIEW PATIENT HISTORY FOR WOUND ETIOLOGY, CO-MORBID CONDITIONS, MEDICATION REGIME, AND SMOKING HISTORY. STATUS: CONTINUED DATE: 11/25/2024 07. DRESSING SELECTION : - EVALUATE FOR DRESSING-RELATED FACTORS, SUCH AVAILABILITY, WEAR TIME, ADAPTABILITY AND USE TO BETTER OPTIMIZE WOUND HEALING AND PATIENT COMPLIANCE. STATUS: CONTINUED DATE: 11/25/2024 - CHOOSE TOPICAL TREATMENTS AND/OR DRESSING BASED ON WOUND TYPE AND APPEARANCE, PERIWOUND SKIN CONDITION, WOUND SIZE AND DEPTH, ANATOMIC LOCATION, VOLUME OF EXUDATE, EDEMA IN THE LOWER EXTREMITIES, AND RISK OR PRESENCE OF INFECTION. STATUS: CONTINUED DATE: 11/25/2024 08. ADVANCED MODALITIES : - SET TREATMENT GOALS ACCORDING TO PATIENT AND/OR CAREGIVER?S ABILITY/ COMPLIANCE. STATUS: CONTINUED DATE: 11/25/2024 - RE-EVALUATE PLAN OF CARE IF NO EVIDENCE OF HEALING (40% IN 4 WEEKS). STATUS: CONTINUED DATE: 11/25/2024 09. FALL PREVENTION : - ENCOURAGE INSTALLATION AND USE GRAB BARS IN BATHROOMS. STATUS: CONTINUED DATE: 11/25/2024 10. PAIN MANAGEMENT : - COMPLETE PAIN ASSESSMENT STATUS: CONTINUED DATE: 11/25/2024 - PREPARE PATIENT TO SET REASONABLE EXPECTATIONS PRIOR TO PROCEDURE. STATUS: CONTINUED DATE: 11/25/2024 11. MEASURABLE GOALS FOR WOUND HEALING AND/OR HYPERBARIC OXYGEN THERAPY : - DECREASE WOUND DIMENSIONS STATUS: CONTINUED DATE: 11/25/2024 - WOUND CLOSURE STATUS: CONTINUED DATE: 11/25/2024 RANULFO CARUSO [id number] 1940 12. DURATION/FREQUENCY OF WOUND CARE VISITS : - 1X WEEKLY FOR 30 DAYS STATUS: CONTINUED DATE: 11/25/2024 ELECTRONIC SIGNATURE(S) SIGNED BY: DATE: WESLEY ENCISO MD 12/02/2024 15:58:03 (PT) ENTERED BY: WESLEY ENCISO MD ON 12/02/2024 15:56:24 (PT) RANULFO CARUSO [id number] 1940
== END ==
PROVIDERS: Family Provider Family Medicine; PCP Family Medicine; Referring Provider Family Medicine; Visit Provider Surgery
DX: E11.621 Type 2 diabetes mellitus with foot ulcer (principal); L97.422 Non-pressure chronic ulcer of left heel and midfoot with fat layer exposed; I96 Gangrene, not elsewhere classified; E11.42 Type 2 diabetes mellitus with diabetic polyneuropathy; I73.9 Peripheral vascular disease, unspecified; R60.0 Localized edema; Z79.01 Long term (current) use of anticoagulants; L97.428 Non-pressure chronic ulcer of left heel and midfoot with other specified severity
CPT/HCPCS: 11042; 99183; G0277

== ENCOUNTER → 2024-12-08 13:15 | Outpatient (CLI) | payer OTHER, SELFPAY | PROVIDERS: Family Provider Family Medicine; PCP Family Medicine; Referring Provider Family Medicine; Visit Provider Surgery | DX: E11.621 Type 2 diabetes mellitus with foot ulcer (principal); L97.428 Non-pressure chronic ulcer of left heel and midfoot with other specified severity | CPT/HCPCS: 99211; 99213 ==

== ENCOUNTER → 2024-12-09 14:07 | Outpatient (CLI) | payer OTHER, SELFPAY ==
--- NOTE | 2024-12-09 | OV.WND_ITS ---
PROGRESS NOTE DETAILS PATIENT NAME: RANULFO CARUSO PATIENT NUMBER: [id number] CLINICIAN: FAISAL PATRICK R.N. PATIENT DATE OF : 1940 PHYSICIAN / STREETCAR STARTER: WESLEY ENCISO PATIENT SUBJECTIVE CHIEF COMPLAINT THIS INFORMATION WAS OBTAINED FROM THE PATIENT. WOUND CARE. GENERAL NOTES LEFT HEEL DIABETIC ULCER. ALLERGIES CEPHALEXIN (SEVERITY: MODERATE, REACTION: VOMITING, DIARRHEA), LINEZOLID (REACTION: VOMITING, DIARRHEA), HYDROFERA BLUE READY (SEVERITY: MODERATE, REACTION: RASH) HPI THIS INFORMATION WAS OBTAINED FROM THE PATIENT. THE FOLLOWING HPI ELEMENTS WERE DOCUMENTED FOR THE PATIENT'S WOUND: LOCATION: L HEEL DURATION: 12/26/2023 CONTEXT: ARTERIAL, DIABETIC THE PATIENT IS AN 84 YO MALE WITH PMH SEVERE PERIPHERAL ARTERY DISEASE, DMT2, HTN, HLD, AFIB ON XARELTO, TIA, CHF RETURNS TO WOUND CLINIC FOR FOLLOW UP OF A HERNANDEZ 3 DIABETIC ULCER LEFT HEEL. THE PATIENT IS CURRENTLY RECEIVING DRESSING CHANGES WITH SILVER COLLAGEN WITH HEEL PROTECTORS AT NIGHT AND A DEFENDER BOOT FOR PRESSURE OFFLOADING. THE PATIENT IS CURRENTLY UNDERGOING HYPERBARIC OXYGEN THERAPY AND HAS RECEIVED 20 TREATMENTS SO FAR WHICH HE HAS TOLERATED WITHOUT ANY DIFFICULTY HOWEVER TREATMENT WAS INTERRUPTED FOR 1 WEEK WHILE AWAITING FOR APPROVAL FROM INSURANCE FOR ADDITIONAL TREATMENTS.. HE WAS PREVIOUSLY UNABLE TO TOLERATE A WOUND VAC. SKIN SUBSTITUTE REQUEST WAS DENIED BY INSURANCE. HE HAD FOLLOW UP WITH VASCULAR WHO ADVISED NO SURGICAL INTERVENTION DUE TO RISKS > BENEFITS. THE PATIENT DENIES FEVER OR CHILLS AND REPORTS A GOOD APPETITE AND GOOD CONTROL OF BLOOD SUGARS. THE PATIENT IS TAKING PROTEIN SUPPLEMENTS. THE PATIENT DENIES HAVING ANY RECENT CHANGES IN HIS OVERALL HEALTH. ON EXAM TODAY THE MEASUREMENTS ARE IMPROVED AND TISSUE QUALITY IS CONTINUING TO IMPROVE. THERE IS A CALLUS IN THE POSTERIOR RIGHT HEEL BUT NO OPEN ULCER IDENTIFIED. THE PATIENT IS FOLLOWED BY DR. TORRES AND COMPLETED DALBOVANCIN AND HAS RECENTLY COMPLETED A PROLONGED COURSE OF DOXYCYCLINE. LABS 2/11/25: CULTURE GREW SCANT GROWTH MIXED SKIN SABA 10/09/24: ELECTROLYTES NORMAL, LFTS NORMAL, CALCIUM 10.9 10/07/24: CT SCAN: DEEP SKIN ULCERATION AT THE POSTERIOR LATERAL ASPECT OF THE HEEL TO THE DEPTH OF THE UNDERLYING CALCANEUS. NO FLUID COLLECTION OR ABSCESS IS SEEN. NO CORTICAL EROSION OR DESTRUCTION IS SEEN WITH CT TO SUGGEST OSTEOMYELITIS. 08/02/24: XRAY LEFT HEEL - NO INTERVAL CHANGE APPRECIATED. NO OSSEOUS EROSION IS IDENTIFIED. 07/23/24: CULTURE STAPHYLOCOCCUS LUGDUNENSIS, KOCURIA KISTINAE 04/28/24:BONE SCAN IMPRESSION READ POTENTIAL OSTEOMYELITIS INVOLVING THE RIGHT LATERAL ANKLE, RECOMMENDED MRI SHADYSERGERANULFO B [id number] 1940 04/06/24: HEMOGLOBIN A1C 5.8 03/12/24: LEFT FOOT XRAY NO BONY EROSIONS TO SUGGEST OSTEOMYELITIS. DISRUPTED ARTHORDESIS SCREW. 02/20/24: WBC 9.3, HGB 11.5, HCT 35.5, MCH 89.4, EOS 500, CR 0.96, GFR >60, GLUCOSE 110 02/13/24: CULTURE TO RIGHT HEEL KLEBSIELLA OXYTOCA AND LEFT PRETIBIAL STAPH EPIDERMIDIS 01/09/24: RIGHT FOOT XRAY WITH FRACTURE OF SCREW AND LUCENCY TO 2ND DIGIT FRACTURE VS OSTEO, REFERRED TO PODIATRY 01/09/24: CULTURE RIGHT FOOT CORYNEBACTERIUM STRIATUM, RX'D LINEZOLID. MRI C/I D/T DEFIBRILLATOR 11/28/23: CULTURE RIGHT FOOT CORYNEBACTERIUM STRIATUM 11/28/23: BILATERAL CT ANGIO, ID TO START IV ANTIBIOTICS 11/21/23 LEFT CALCANEAL XRAY NO EVIDENCE OSTEOMYELITIS, SOFT TISSUE SWELLING, SEVERE ATHEROSCLEROSIS. TIB/FIB XRAY ORTHOPEDIC HARDWARE NOTED, SEVERE ATHEROSCLEROTIC VASCULAR CALCIFICATIONS 11/21/23 ARTERIAL US DAMPENED WAVEFORMS BILATERALLY WITHIN INFRAGENICULATE ARTERIES IN ADDITION TO HEAVILY CALCIFIED VESSELS. FOCAL HEMODYNAMICALLY SIGNIFICANT STENOSIS AT LEVEL OF POPLITEAL ARTERIES CANNOT BE EXCLUDED. IF FURTHER CHARACTERIZATION WARRANTED TO EVALUATE FOR THERAPEUTIC INTERVENTION, CTA WITH B/L LOWER EXTREMITY RUNOFF RECOMMENDED 11/14/23 GUILLE: PAD, NOTES REQUESTED FROM VASCULAR 11/12/23 CULTURE POS FOR PSEUDOMONAS, E COLI, K PNEUMONIA PER PT LAST A1C W/IN 2 MOS WNL MEDICAL HISTORY THIS INFORMATION WAS OBTAINED FROM THE CHART, PATIENT. PATIENT HAS A MEDICAL HISTORY OF: ARTHRITIS TYPE II DIABETES HEART MURMUR HYPERTENSION MEMORY LOSS (SHORT TERM) TRANSIENT ISCHEMIC ATTACK (TIA) - 10/06/2023 PAD LOWER EXTREMITY EDEMA ANEMIA CHRONIC CHF EXERTIONAL DYSPNEA INSOMNIA LUMBAR REGION WITH NEUROGENIC CLAUDICATION VENTRICULAR TACHYCARDIA (ICD IMPLANTED (12/2022)) ISCHEMIC CARDIOMYOPATHY GASTROESOPHAGEAL REFLUX DISEASE IRON DEFICIENCY B12 DEFICIENCY ADHD BASAL CELL CARCINOMA (NOSE) ATRIAL FIBRILLATION OBSTRUCTIVE SLEEP APNEA DIVERTICULITIS DYSLIPIDEMIA MYOCARDIAL INFARCTION (ID) (09/2022) ADDITIONAL INFORMATION DOES PATIENT HAVE A HISTORY OF CANCER? YES? COMPLETE ALL QUESTIONS.: YES LOCATION OF CANCER: SKIN (NOSE) RANULFO CARUSO [id number] 1940 SURGICAL HISTORY THIS INFORMATION WAS OBTAINED FROM THE CHART, PATIENT. PATIENT HAS A SURGICAL HISTORY OF: CORONARY ARTERY BYPASS GRAFT (CABG)- CARDIAC SURGERY- CARDIAC VALVE REPLACEMENT- CARDIAC VALVE SURGERY- CATARACT SURGERY- 02/27/2022 (LEFT) CATARACT SURGERY- 03/20/2022 (RIGHT) HIP REPLACEMENT, TOTAL JOINT REPLACEMENT- 12/17/2021 (RIGHT) RECONSTRUCTION OF BOTH FEET- (ARTIFICIAL ANKLE OF LEFT FOOT) TOOTH EXTRACTION AND IMPLANTS- PROSTATE SURGERY- TONSILLECTOMY AND ADENOIDECTOMY- (89 (< AGE 10)) VASECTOMY- OBJECTIVE VITALS HEIGHT/LENGTH: 77 IN (195.58 CM), WEIGHT: 199.7 LBS (90.77 KGS), BMI: 23.7, TEMPERATURE: 97.7 ?F (36.5 ?C), PULSE: 71 BPM, RESPIRATORY RATE: 18 BREATHS/MIN, BLOOD PRESSURE: 118/69 MMHG, CAPILLARY BLOOD GLUCOSE: 132 MG/DL, PULSE OXIMETRY: 100 %. GENERAL NOTES VITALS POST HBOT. PHYSICAL EXAM CONSTITUTIONAL: VITAL SIGNS REVIEWED AND NOTED. WELL DEVELOPED, WELL NOURISHED, AND IN NO ACUTE DISTRESS. ALERT AND ORIENTED X3. RESPIRATORY: EVEN RESPIRATIONS WITHOUT USE OF ACCESSORY MUSCLES. NO INTERCOASTAL RETRACTIONS NOTED. EVEN AND NON LABORED RESPIRATION. INTEGUMENTARY (HAIR, SKIN): CALLUS POSTERIOR RIGHT HEEL, NO ERYTHEMA. NO SWELLING OR TENDERNESS. SEE WOUND ASSESSMENT. SKIN WARM AND DRY. NO RASHES. NEUROLOGICAL: DECREASED LOWER EXTREMITY SENSATION. PSYCHIATRIC: ORIENTATION TO TIME, PLACE AND PERSON: NORMAL AFFECT WITH NORMAL THOUGHT PATTERN. ADDITIONAL INFORMATION THE PATIENT'S POTENTIAL TO HEAL IS: FAIR. WOUND ASSESSMENT(S) WOUND #6 LEFT HEEL IS A CHRONIC HERNANDEZ GRADE 3 DIABETIC ULCER ACQUIRED ON 12/26/2023 AND HAS RECEIVED A STATUS OF NOT HEALED. INITIAL WOUND ENCOUNTER MEASUREMENTS ARE 1.3CM LENGTH X 0.8CM WIDTH X 0.3 CM DEPTH, WITH AN AREA OF 1.04 SQ CM AND A VOLUME OF 0.312 CUBIC CM.INITIAL WOUND ENCOUNTER PREVIOUS MEASUREMENTS FROM 12/02/2024 ARE 1.9CM LENGTH X 1.1CM WIDTH X 0.3CM DEPTH, WITH AN AREA OF 2.09 SQ CM AND A VOLUME OF 0.627 CUBIC CM. TENDON AND ADIPOSE ARE EXPOSED. THERE IS A MODERATE AMOUNT OF SEROUS DRAINAGE NOTED WHICH HAS NO ODOR. THE PATIENT REPORTS A WOUND PAIN OF LEVEL 0/10. THE WOUND MARGIN IS UNATTACHED WOUND BED HAS YES, BRIGHT RED, PINK, FIRM, GRANULATION, YES KARLUGHSHADY TERENCE B [id number] 1940 NO ESCHAR, YES EPITHELIALIZATION. THE PERIWOUND SKIN EXHIBITED EDEMA, MACERATION AND ECCHYMOSIS. THE PERIWOUND SKIN DID NOT EXHIBIT BRAWNY INDURATION, EXCORIATION, INDURATION, CALLUS, CREPITUS, FLUCTUANCE, RASH, ATROPHIE DUSTIN, CYANOSIS, ERYTHEMA, HEMOSIDEROSIS, PALLOR AND RUBOR. THE PERIWOUND SKIN WAS MOIST. THE PERIWOUND SKIN WAS NOT FRIABLE AND DRY/SCALY. THE TEMPERATURE OF THE PERIWOUND SKIN IS WNL. PERIWOUND SKIN DOES NOT EXHIBIT SIGNS OR SYMPTOMS OF INFECTION. LOCAL PULSE IS DOPPLER. ASSESSMENT ACTIVE PROBLEMS ICD-10 (ENCOUNTER DIAGNOSIS) L97.428 - NON-PRESSURE CHRONIC ULCER OF LEFT HEEL AND MIDFOOT WITH OTHER SPECIFIED SEVERITY (ENCOUNTER DIAGNOSIS) E11.621 - TYPE 2 DIABETES MELLITUS WITH FOOT ULCER (ENCOUNTER DIAGNOSIS) E11.42 - TYPE 2 DIABETES MELLITUS WITH DIABETIC POLYNEUROPATHY (ENCOUNTER DIAGNOSIS) I73.9 - PERIPHERAL VASCULAR DISEASE, UNSPECIFIED GENERAL NOTES HERNANDEZ 3 DIABETIC ULCER LEFT HEEL, MEASUREMENTS IMPROVED, TISSUE QUALITY MUCH IMPROVED THE FOLLOWING FACTORS HAVE BEEN IDENTIFIED THAT MAY AFFECT WOUND HEALING: DEVITALIZED TISSUE BIOFILM ADVANCED AGE PRESSURE DIABETES PAD INFECTION GOALS: REMOVE DEVITALIZED TISSUE REMOVE AND PREVENT BIOFILM REDUCE PRESSURE TREAT INFECTION PROTEIN SUPPLEMENTATION PLAN: DEBRIDEMENT, CONTINUE DRESSING CHANGES WITH SILVER COLLAGEN, USE E HOB BOOT FOR PRESSURE OFFLOADING. CONTINUE HYPERBARIC OXYGEN THERAPY. CONTINUE PROTEIN SUPPLEMENTATION, FOLLOW UP IN 1 WEEK FOR RECHECK. THE PATIENT HAS BEEN IMPROVING WITH HYPERBARIC OXYGEN THERAPY. PROCEDURES WOUND #6 WOUND #6 (DIABETIC ULCER) IS LOCATED ON THE LEFT HEEL. A SKIN/SUBCUTANEOUS TISSUE LEVEL SURGICAL DEBRIDEMENT WITH A TOTAL AREA DEBRIDED OF 1.04 SQ CM. WAS PERFORMED BY WESLEY ENCISO MD. SUBCUTANEOUS WAS REMOVED ALONG WITH DEVITALIZED TISSUE: BIOFILM AND SLOUGH. THE FOLLOWING INSTRUMENT(S) WERE USED: CURETTE. PAIN CONTROL WAS ACHIEVED USING EMLA LIDOCAINE/PRILOCAINE 2.5%/2.5%. A TIME OUT WAS CONDUCTED PRIOR TO THE START OF THE PROCEDURE. A MINIMAL AMOUNT OF BLEEDING WAS CONTROLLED WITH PRESSURE. THE PROCEDURE WAS TOLERATED WELL WITH A PAIN LEVEL OF 0 THROUGHOUT AND A PAIN LEVEL OF 0 FOLLOWING THE PROCEDURE. POST DEBRIDEMENT MEASUREMENTS: 1.3CM LENGTH X 0.8CM WIDTH X 0.4CM DEPTH; WITH AN AREA OF 1.04 SQ CM AND A VOLUME OF 0.416 CUBIC CM. ADDITIONAL INFORMATION RANULFO CARUSO [id number] 1940 MUSCLE FASCIA OR BONE REMOVED AND SENT TO PATHOLOGY?: NO PLAN WOUND ORDERS: WOUND #6 LEFT HEEL HAND HYGIENE HAND HYGIENE - WASH HANDS BEFORE AND AFTER WOUND CARE. CALL THE WOUND CENTER AT [phone] IF YOU HAVE SIGNS OR SYMPTOMS OF INFECTION, FEVER CHILLS OR SHAKES, INCREASED DRAINAGE, INCREASED ODOR OR UNUSUAL REDNESS. AFTER WOUND CENTER HOURS PLEASE NOTIFY YOUR PCP OR GO TO THE EMERGENCY ROOM. CLEANSER CLEANSE WOUND WITH NORMAL SALINE - IN CLINIC. CLEANSE WOUND AND VIVIAN WOUND WITH A NON-CYTOTOXIC WOUND CLEANSER. - VASHE CLEANSER AT HOME. PROCEDURE / ANESTHETIC 5% TOPICAL LIDOCAINE TO WOUND BED PRIOR TO PROCEDURE, IN CLINIC ONLY. DRESSING ORDERS APPLY DRESSING(S) AND SECURE WITH: - PURACOL PLUS AG, MOISTENED WITH NORMAL SALINE OR DISTILLED WATER. OPTIFOAM SECURED WITH TAPE. DRESSING CHANGE FREQUENCY CHANGE DRESSING EVERY OTHER DAY. - OR MORE FREQUENTLY FOR DRAINAGE CONTROL. ADDITIONAL ORDERS: COMPRESSION/EDEMA CONTROL ELEVATE LEG(S) ABOVE THE LEVEL OF THE HEART MUCH POSSIBLE. AVOID STANDING IN ONE POSITION FOR MORE THAN 10 MINUTES. AVOID SITTING WITH LEGS DOWN. DO NOT CROSS LEGS WHEN SITTING. OFF-LOADING / PRESSURE RELIEF TOTAL NON-WEIGHT BEARING USING: - EHOB BOOTS TO BOTH HEELS WHILE IN BED OR RESTING IN A RECLINED POSITION. USE/WEAR WHEN WALKING: - CROC SHOES WITHOUT HEEL BACK TO PREVENT PRESSURE/RUBBING. DIETARY TAKE VITAMIN C 1000MG BY MOUTH DAILY. TAKE ZINC 25MG BY MOUTH DAILY. INCREASE THE PROTEIN IN YOUR DIET. - SUPPLEMENT WITH DIABETIC FRIENDLY PROTEIN SHAKES IN BETWEEN REGULAR MEALS. ACTIVITY OTHER ORDER: - DECREASE ACTIVITY MUCH POSSIBLE WHILE WE ARE CLOSELY MONITORING THE WOUND ON YOUR HEEL. FOLLOW-UP APPOINTMENTS RETURN APPOINTMENT 1 WEEK SCRIBING ATTESTATION I ATTEST, THE NURSE, THAT I SCRIBED THESE ORDERS FOR THE WOUND CARE PROVIDER. PROVIDER REVIEW AND ATTESTATION: REVIEWED AND EVALUATED LABS. REVIEWED HOSPITAL RECORDS. DISCUSSED THE PLAN OF CARE @ BEDSIDE WITH - THE PATIENT AND I AGREE AND ATTEST TO THE ABOVE INFORMATION PROVIDED FROM OTHER LICENSED PROFESSIONALS. PLAN OF CARE: 01. ENSURE/ESTABLISH OPTIMAL BLOOD FLOW : - COMPLETE LOWER EXTREMITY ASSESSMENT STATUS: CONTINUED DATE: 11/25/2024 - PERFORM NON-INVASIVE VASCULAR TESTING (I.E. GUILLE) AND DOCUMENT FINDINGS. CONSIDER REPEATING WHEN WOUND HEALING <40% AFTER 30 DAYS OF WOUND CARE. STATUS: COMPLETED DATE: 11/14/2023 - ORDER VASCULAR CONSULT FOR EVALUATION/TREATMENT AND/OR NON-INVASIVE VASCULAR TESTING. SHADYSERGERANULFO B [id number] 1940 STATUS: COMPLETED DATE: 05/18/2024 02. ASSESS FOR/TREAT INFECTION : - EVALUATE FOR SIGNS AND SYMPTOMS OF INFECTION AND DOCUMENT FINDINGS. STATUS: CONTINUED DATE: 11/25/2024 03. DEBRIDE WEEKLY OR MORE OFTEN PRN : - EVALUATE PATIENT IN CENTER WEEKLY TO ASSESS WOUND BED AND MARGINS FOR NEED FOR DEBRIDEMENT. STATUS: CONTINUED DATE: 11/25/2024 - DEBRIDEMENT BY ANY METHOD TO REMOVE DEVITALIZED/NECROTIC TISSUE TO PROMOTE HEALING AND PREVENT FURTHER COMPLICATIONS. GOAL IS TO STIMULATE AND/OR MAINTAIN ACUTE PHASE OF WOUND HEALING BY REDUCING BACTERIAL BURDEN AND DEVITALIZED/NON-VIABLE TISSUE. STATUS: CONTINUED DATE: 11/25/2024 04. OPTIMIZE GLUCOSE CONTROL AND NUTRITION : - ORDER/REVIEW PERTINENT LABS TO EVALUATE RENAL FUNCTION, GLUCOSE CONTROL, AND NUTRITIONAL STATUS. STATUS: CONTINUED DATE: 11/25/2024 05. OFFLOADING PLAN : - EVALUATE PLAN FOR OFFLOADING STATUS: CONTINUED DATE: 11/25/2024 - ADVISE PATIENT TO OFFLOAD THE FOOT ULCER. (I.E. HALF SHOE, SURGICAL SHOE, INSERT, CUSTOM SHOE, FELT AND FOAM, CAM WALKER, MULTIPODUS SPLINT, TOTAL CONTACT CAST, BI-VALVE CAST, POSTERIOR SPLINT). STATUS: CONTINUED DATE: 11/25/2024 06. OPTIMIZE HOST FACTORS: - ASSESS AND REVIEW PATIENT HISTORY FOR WOUND ETIOLOGY, CO-MORBID CONDITIONS, MEDICATION REGIME, AND SMOKING HISTORY. STATUS: CONTINUED DATE: 11/25/2024 07. DRESSING SELECTION : - EVALUATE FOR DRESSING-RELATED FACTORS, SUCH AVAILABILITY, WEAR TIME, ADAPTABILITY AND USE TO BETTER OPTIMIZE WOUND HEALING AND PATIENT COMPLIANCE. STATUS: CONTINUED DATE: 11/25/2024 - CHOOSE TOPICAL TREATMENTS AND/OR DRESSING BASED ON WOUND TYPE AND APPEARANCE, PERIWOUND SKIN CONDITION, WOUND SIZE AND DEPTH, ANATOMIC LOCATION, VOLUME OF EXUDATE, EDEMA IN THE LOWER EXTREMITIES, AND RISK OR PRESENCE OF INFECTION. STATUS: CONTINUED DATE: 11/25/2024 08. ADVANCED MODALITIES : - SET TREATMENT GOALS ACCORDING TO PATIENT AND/OR CAREGIVER?S ABILITY/ COMPLIANCE. STATUS: CONTINUED DATE: 11/25/2024 - RE-EVALUATE PLAN OF CARE IF NO EVIDENCE OF HEALING (40% IN 4 WEEKS). STATUS: CONTINUED DATE: 11/25/2024 09. FALL PREVENTION : - ENCOURAGE INSTALLATION AND USE GRAB BARS IN BATHROOMS. STATUS: CONTINUED DATE: 11/25/2024 10. PAIN MANAGEMENT : - COMPLETE PAIN ASSESSMENT STATUS: CONTINUED DATE: 11/25/2024 - PREPARE PATIENT TO SET REASONABLE EXPECTATIONS PRIOR TO PROCEDURE. STATUS: CONTINUED DATE: 11/25/2024 11. MEASURABLE GOALS FOR WOUND HEALING AND/OR HYPERBARIC OXYGEN THERAPY : - DECREASE WOUND DIMENSIONS STATUS: CONTINUED DATE: 11/25/2024 - WOUND CLOSURE STATUS: CONTINUED DATE: 11/25/2024 RANULFO CARUSO [id number] 1940 12. DURATION/FREQUENCY OF WOUND CARE VISITS : - 1X WEEKLY FOR 30 DAYS STATUS: CONTINUED DATE: 11/25/2024 ELECTRONIC SIGNATURE(S) SIGNED BY: DATE: WESLEY ENCISO MD 12/09/2024 15:47:55 (PT) ENTERED BY: WESLEY ENCISO MD ON 12/09/2024 15:31:52 (PT) RANULFO CARUSO [id number] 1940
--- NOTE | 2024-12-09 | OV.WND_ITS ---
PROGRESS NOTE DETAILS PATIENT NAME: RANULFO CARUSO PATIENT NUMBER: [id number] PATIENT DATE OF : 1940 PATIENT SUBJECTIVE ALLERGIES CEPHALEXIN (SEVERITY: MODERATE, REACTION: V HYDROFERA BLUE READY (SEVERITY: MODERATE, R DATE: 12/09/2024 CLINICIAN: JUAN A MIRELES RN PHYSICIAN / TAILER IN: WESLEY ENCISO OMITING, DIARRHEA), LINEZOLID (REACTION: VOMITING, DIARRHEA), EACTION: RASH) ASSESSMENT ACTIVE PROBLEMS ICD-10 (ENCOUNTER DIAGNOSIS) L97.428 - NON-PRESSURE CHRONIC ULCER OF LEFT HEEL AND MIDFOOT WITH OTHER SPECIFIED SEVERITY (ENCOUNTER DIAGNOSIS) E11.621 - TYPE 2 DIABETES MELLITUS WITH FOOT ULCER (ENCOUNTER DIAGNOSIS) E11.42 - TYPE 2 DIABETES MELLITUS WITH DIABETIC POLYNEUROPATHY (ENCOUNTER DIAGNOSIS) I73.9 - PERIPHERAL VASCULAR DISEASE, UNSPECIFIED PROCEDURES HBO HYPERBARIC TREATMENT #20 WAS COMPLETED TODAY FOR DIABETIC WOUND(S) OF THE LOWER EXTREMITIES. PRE- TREATMENT VITAL SIGNS WERE: TIME VITALS TAKEN: 12:00, BLOOD PRESSURE: 105/53 MMHG, PULSE: 65 BPM, RESPIRATORY RATE: 18 BREATHS/MIN, TEMPERATURE: 97.6 ?F, CAPILLARY BLOOD GLUCOSE: 300 MG/DL, PULSE OXIMETRY: 98 %. PATIENT REPORTS A PAIN LEVEL OF 2. THE TREATMENT PROTOCOL PROVIDED WAS 2.0 YARITZA X 90 MINUTES W/ 100% OXYGEN AND NO AIR BREAKS. THE DIVE RATE DOWN WAS 1.5 PSI / MINUTE. THE DIVE RATE UP WAS 1.5 PSI / MINUTE. THE TOTAL TREATMENT LENGTH WAS 120 MINUTES. POST-TREATMENT VITAL SIGNS WERE: TIME VITALS TAKEN: 14:25, BLOOD PRESSURE: 118/69 MMHG, PULSE: 71 BPM, RESPIRATORY RATE: 18 BREATHS/MIN, TEMPERATURE: 97.7 ?F, CAPILLARY BLOOD GLUCOSE: 132 MG/DL, PULSE OXIMETRY: 100 %. PATIENT REPORTS A PAIN LEVEL OF 2. NO ADVERSE EVENTS WERE ENCOUNTERED. PHYSICIAN/TAILER IN NOTES: THE PATIENT TOLERATED TREATMENT WITHOUT DIFFICULTY. I WAS PRESENT AND IMMEDIATELY AVAILABLE THROUGHOUT THE TREATMENT. PLAN TO CONTINUE HYPERBARIC OXYGEN THERAPY. GENERAL NOTES PATIENT REPORTS EATING SEVERAL ITEMS ON THE WAY TO THE CLINIC TODAY. GLUCOSE ELEVATED UPON ARRIVAL. PATIENT COMPLETED TREATMENT WITHOUT ANY COMPLICATIONS. WOUND CARE POST HBOT. ADDITIONAL INFORMATION PHYSICIAN WAS READILY AVAILABLE DURING THE ENTIRE TREATMENT.: YES RANULFO CARUSO [id number] 1940 ELECTRONIC SIGNATURE(S) SIGNED BY: DATE: WESLEY ENCISO MD 12/09/2024 15:47:55 (PT) ENTERED BY: WESLEY ENCISO MD ON 12/09/2024 15:41:40 (PT) RANULFO CARUSO [id number] 1940
== END ==
PROVIDERS: Family Provider Family Medicine; PCP Family Medicine; Referring Provider Family Medicine; Visit Provider Surgery
DX: E11.621 Type 2 diabetes mellitus with foot ulcer (principal); L97.422 Non-pressure chronic ulcer of left heel and midfoot with fat layer exposed; I73.9 Peripheral vascular disease, unspecified; R60.0 Localized edema; L97.428 Non-pressure chronic ulcer of left heel and midfoot with other specified severity; E11.42 Type 2 diabetes mellitus with diabetic polyneuropathy
CPT/HCPCS: 11042; 99183; G0277

== ENCOUNTER → 2024-12-10 09:39 | Outpatient (CLI) | payer OTHER, SELFPAY ==
--- NOTE | 2024-12-10 | OV.WND_ITS ---
PROGRESS NOTE DETAILS PATIENT NAME: RANULFO CARUSO PATIENT NUMBER: [id number] PATIENT DATE OF : 1940 PATIENT SUBJECTIVE ALLERGIES CEPHALEXIN (SEVERITY: MODERATE, REACTION: V HYDROFERA BLUE READY (SEVERITY: MODERATE, R DATE: 12/10/2024 CLINICIAN: JUAN A MIRELES RN PHYSICIAN / RAILROAD TRACK INSPECTOR: SUMMER PEDRO PA-C OMITING, DIARRHEA), LINEZOLID (REACTION: VOMITING, DIARRHEA), EACTION: RASH) ASSESSMENT ACTIVE PROBLEMS ICD-10 (ENCOUNTER DIAGNOSIS) L97.428 - NON-PRESSURE CHRONIC ULCER OF LEFT HEEL AND MIDFOOT WITH OTHER SPECIFIED SEVERITY (ENCOUNTER DIAGNOSIS) E11.621 - TYPE 2 DIABETES MELLITUS WITH FOOT ULCER (ENCOUNTER DIAGNOSIS) E11.42 - TYPE 2 DIABETES MELLITUS WITH DIABETIC POLYNEUROPATHY (ENCOUNTER DIAGNOSIS) I73.9 - PERIPHERAL VASCULAR DISEASE, UNSPECIFIED PROCEDURES HBO HYPERBARIC TREATMENT #21 WAS COMPLETED TODAY FOR DIABETIC WOUND(S) OF THE LOWER EXTREMITIES. PRE- TREATMENT VITAL SIGNS WERE: TIME VITALS TAKEN: 09:45, BLOOD PRESSURE: 125/73 MMHG, PULSE: 71 BPM, RESPIRATORY RATE: 18 BREATHS/MIN, TEMPERATURE: 97.4 ?F, CAPILLARY BLOOD GLUCOSE: 152 MG/DL, PULSE OXIMETRY: 99 %. PATIENT REPORTS A PAIN LEVEL OF 0. THE TREATMENT PROTOCOL PROVIDED WAS 2.0 YARITZA X 90 MINUTES W/ 100% OXYGEN AND NO AIR BREAKS. THE DIVE RATE DOWN WAS 1.5 PSI / MINUTE. THE DIVE RATE UP WAS 1.5 PSI / MINUTE. THE TOTAL TREATMENT LENGTH WAS 120 MINUTES. POST-TREATMENT VITAL SIGNS WERE: TIME VITALS TAKEN: 12:10, BLOOD PRESSURE: 144/79 MMHG, PULSE: 70 BPM, RESPIRATORY RATE: 18 BREATHS/MIN, TEMPERATURE: 97.8 ?F, CAPILLARY BLOOD GLUCOSE: 159 MG/DL, PULSE OXIMETRY: 100 %. PATIENT REPORTS A PAIN LEVEL OF 0. NO ADVERSE EVENTS WERE ENCOUNTERED. PHYSICIAN/RAILROAD TRACK INSPECTOR NOTES: THE PATIENT TOLERATED TREATMENT WITHOUT DIFFICULTY. I WAS PRESENT AND IMMEDIATELY AVAILABLE THROUGHOUT THE TREATMENT. PLAN TO CONTINUE HYPERBARIC OXYGEN THERAPY. GENERAL NOTES PATIENT COMPLETED TREATMENT WITHOUT ANY COMPLICATIONS. TO RETURN FRIDAY FOR SCHEDULED HBOT. ADDITIONAL INFORMATION PHYSICIAN WAS READILY AVAILABLE DURING THE ENTIRE TREATMENT.: YES RANULFO CARUSO [id number] 1940 ELECTRONIC SIGNATURE(S) SIGNED BY: DATE: SUMMER PEDRO PA-C 12/10/2024 12:34:35 (PT) ENTERED BY: SUMMER PEDRO PA-C ON 12/10/2024 12:34:27 (PT) RANULFO CARUSO [id number] 1940
== END ==
PROVIDERS: Family Provider Family Medicine; PCP Family Medicine; Referring Provider Family Medicine; Visit Provider Physician Assistant
DX: L97.428 Non-pressure chronic ulcer of left heel and midfoot with other specified severity (principal); E11.621 Type 2 diabetes mellitus with foot ulcer; E11.42 Type 2 diabetes mellitus with diabetic polyneuropathy; I73.9 Peripheral vascular disease, unspecified
CPT/HCPCS: 99183; G0277

== ENCOUNTER → 2024-12-13 14:08 | Outpatient (CLI) | payer OTHER, SELFPAY | PROVIDERS: Family Provider Family Medicine; PCP Family Medicine; Referring Provider Family Medicine; Visit Provider Surgery | DX: L97.428 Non-pressure chronic ulcer of left heel and midfoot with other specified severity (principal); E11.621 Type 2 diabetes mellitus with foot ulcer; E11.42 Type 2 diabetes mellitus with diabetic polyneuropathy; I73.9 Peripheral vascular disease, unspecified | CPT/HCPCS: 99183; G0277 ==

== ENCOUNTER → 2024-12-14 13:39 | Outpatient (CLI) | payer OTHER, SELFPAY ==
--- NOTE | 2024-12-14 | OV.WND_ITS ---
PROGRESS NOTE DETAILS PATIENT NAME: RANULFO CARUSO PATIENT NUMBER: [id number] PATIENT DATE OF : 1940 PATIENT SUBJECTIVE ALLERGIES CEPHALEXIN (SEVERITY: MODERATE, REACTION: V HYDROFERA BLUE READY (SEVERITY: MODERATE, R DATE: 12/14/2024 CLINICIAN: DALTON SAGE PHYSICIAN / HAND SLITTER: WESLEY ENCISO OMITING, DIARRHEA), LINEZOLID (REACTION: VOMITING, DIARRHEA), EACTION: RASH) ASSESSMENT ACTIVE PROBLEMS ICD-10 (ENCOUNTER DIAGNOSIS) L97.428 - NON-PRESSURE CHRONIC ULCER OF LEFT HEEL AND MIDFOOT WITH OTHER SPECIFIED SEVERITY (ENCOUNTER DIAGNOSIS) E11.621 - TYPE 2 DIABETES MELLITUS WITH FOOT ULCER (ENCOUNTER DIAGNOSIS) E11.42 - TYPE 2 DIABETES MELLITUS WITH DIABETIC POLYNEUROPATHY (ENCOUNTER DIAGNOSIS) I73.9 - PERIPHERAL VASCULAR DISEASE, UNSPECIFIED PROCEDURES HBO HYPERBARIC TREATMENT #23 WAS COMPLETED TODAY FOR DIABETIC WOUND(S) OF THE LOWER EXTREMITIES. PRE- TREATMENT VITAL SIGNS WERE: TIME VITALS TAKEN: 12:40, BLOOD PRESSURE: 109/73 MMHG, PULSE: 70 BPM, RESPIRATORY RATE: 16 BREATHS/MIN, TEMPERATURE: 97.7 ?F, CAPILLARY BLOOD GLUCOSE: 220 MG/DL, PULSE OXIMETRY: 100 %. THE TREATMENT PROTOCOL PROVIDED WAS 2.0 YARITZA X 90 MINUTES W/ 100% OXYGEN AND NO AIR BREAKS. THE DIVE RATE DOWN WAS 1.5 PSI / MINUTE. THE DIVE RATE UP WAS 1.5 PSI / MINUTE. THE TOTAL TREATMENT LENGTH WAS 120 MINUTES. POST-TREATMENT VITAL SIGNS WERE: TIME VITALS TAKEN: 15:02, BLOOD PRESSURE: 125/80 MMHG, PULSE: 73 BPM, RESPIRATORY RATE: 16 BREATHS/MIN, TEMPERATURE: 97.5 ?F, CAPILLARY BLOOD GLUCOSE: 117 MG/DL, PULSE OXIMETRY: 100 %. NO ADVERSE EVENTS WERE ENCOUNTERED. PHYSICIAN/HAND SLITTER NOTES: THE PATIENT TOLERATED TREATMENT WITHOUT DIFFICULTY. I WAS PRESENT AND IMMEDIATELY AVAILABLE THROUGHOUT THE TREATMENT. PLAN TO CONTINUE HYPERBARIC OXYGEN THERAPY. GENERAL NOTES PT ARRIVED IN STABLE CONDITION; PRE-TREATMENT CHECKLIST COMPLETED WITHOUT COMPLICATIONS. PT COMPLETED TREATMENT WITHOUT COMPLAINT, PT LEFT IN STABLE CONDITION. ADDITIONAL INFORMATION PHYSICIAN WAS READILY AVAILABLE DURING THE ENTIRE TREATMENT.: YES RANULFO CARUSO [id number] 1940 ELECTRONIC SIGNATURE(S) SIGNED BY: DATE: WESLEY ENCISO MD 12/15/2024 16:19:23 (PT) ENTERED BY: WESLEY ENCISO MD ON 12/14/2024 16:07:41 (PT) RANULFO CARUSO [id number] 1940
== END ==
LOC: WC 13:40
PROVIDERS: Family Provider Family Medicine; PCP Family Medicine; Referring Provider Family Medicine; Visit Provider Surgery
DX: L97.428 Non-pressure chronic ulcer of left heel and midfoot with other specified severity (principal); E11.621 Type 2 diabetes mellitus with foot ulcer; E11.42 Type 2 diabetes mellitus with diabetic polyneuropathy; I73.9 Peripheral vascular disease, unspecified
CPT/HCPCS: 99183; G0277

== ENCOUNTER → 2024-12-15 10:52 | Outpatient (CLI) | payer OTHER, SELFPAY ==
--- NOTE | 2024-12-15 | OV.WND_ITS ---
PROGRESS NOTE DETAILS PATIENT NAME: RANULFO CARUSO PATIENT NUMBER: [id number] PATIENT DATE OF : 1940 PATIENT SUBJECTIVE ALLERGIES CEPHALEXIN (SEVERITY: MODERATE, REACTION: V HYDROFERA BLUE READY (SEVERITY: MODERATE, R DATE: 12/15/2024 PHYSICIAN / BLOWER BLAST FURNACE: WESLEY ENCISO OMITING, DIARRHEA), LINEZOLID (REACTION: VOMITING, DIARRHEA), EACTION: RASH) ASSESSMENT ACTIVE PROBLEMS ICD-10 (ENCOUNTER DIAGNOSIS) L97.428 - NON-PRESSURE CHRONIC ULCER OF LEFT HEEL AND MIDFOOT WITH OTHER SPECIFIED SEVERITY (ENCOUNTER DIAGNOSIS) E11.621 - TYPE 2 DIABETES MELLITUS WITH FOOT ULCER (ENCOUNTER DIAGNOSIS) E11.42 - TYPE 2 DIABETES MELLITUS WITH DIABETIC POLYNEUROPATHY (ENCOUNTER DIAGNOSIS) I73.9 - PERIPHERAL VASCULAR DISEASE, UNSPECIFIED PROCEDURES HBO HYPERBARIC TREATMENT #24 WAS COMPLETED TODAY FOR DIABETIC WOUND(S) OF THE LOWER EXTREMITIES. PRE- TREATMENT VITAL SIGNS WERE: TIME VITALS TAKEN: 10:42, BLOOD PRESSURE: 126/78 MMHG, PULSE: 99 BPM, RESPIRATORY RATE: 16 BREATHS/MIN, TEMPERATURE: 98.1 ?F, CAPILLARY BLOOD GLUCOSE: 315 MG/DL, PULSE OXIMETRY: 100 %. THE TREATMENT PROTOCOL PROVIDED WAS 2.0 YARITZA X 90 MINUTES W/ 100% OXYGEN AND NO AIR BREAKS. THE DIVE RATE DOWN WAS 1.0 PSI / MINUTE. THE DIVE RATE UP WAS 1.0 PSI / MINUTE. THE TOTAL TREATMENT LENGTH WAS 120 MINUTES. POST-TREATMENT VITAL SIGNS WERE: TIME VITALS TAKEN: 12:59, BLOOD PRESSURE: 141/85 MMHG, PULSE: 73 BPM, RESPIRATORY RATE: 16 BREATHS/MIN, TEMPERATURE: 97.6 ?F, CAPILLARY BLOOD GLUCOSE: 172 MG/DL, PULSE OXIMETRY: 100 %. NO ADVERSE EVENTS WERE ENCOUNTERED. PHYSICIAN/BLOWER BLAST FURNACE NOTES: THE PATIENT TOLERATED TREATMENT WITHOUT DIFFICULTY. I WAS PRESENT AND IMMEDIATELY AVAILABLE THROUGHOUT THE TREATMENT. PLAN TO CONTINUE HYPERBARIC OXYGEN THERAPY. GENERAL NOTES PT ARRIVED IN STABLE CONDITION; PRE-TREATMENT CHECKLIST COMPLETED WITHOUT COMPLICATIONS. PT COMPLETED TREATMENT WITHOUT COMPLAINT, PT LEFT IN STABLE CONDITION. ADDITIONAL INFORMATION PHYSICIAN WAS READILY AVAILABLE DURING THE ENTIRE TREATMENT.: YES RANULFO CARUSO [id number] 1940 ELECTRONIC SIGNATURE(S) SIGNED BY: DATE: WESLEY ENCISO MD 12/15/2024 16:19:22 (PT) ENTERED BY: WESLEY ENCISO MD ON 12/15/2024 16:06:59 (PT) RANULFO CARUSO [id number] 1940
== END ==
PROVIDERS: Family Provider Family Medicine; PCP Family Medicine; Referring Provider Family Medicine; Visit Provider Surgery
DX: L97.428 Non-pressure chronic ulcer of left heel and midfoot with other specified severity (principal); E11.621 Type 2 diabetes mellitus with foot ulcer; E11.42 Type 2 diabetes mellitus with diabetic polyneuropathy; I73.9 Peripheral vascular disease, unspecified
CPT/HCPCS: 99183; G0277

== ENCOUNTER → 2024-12-16 08:49 | Outpatient (CLI) | payer OTHER, SELFPAY | LOC: WC 08:50 | PROVIDERS: Family Provider Family Medicine; PCP Family Medicine; Referring Provider Family Medicine; Visit Provider Surgery | DX: L97.428 Non-pressure chronic ulcer of left heel and midfoot with other specified severity (principal); E11.621 Type 2 diabetes mellitus with foot ulcer; E11.42 Type 2 diabetes mellitus with diabetic polyneuropathy; I73.9 Peripheral vascular disease, unspecified | CPT/HCPCS: 11042; 99183; G0277 ==

== ENCOUNTER → 2024-12-17 13:10 | Outpatient (CLI) | payer OTHER, SELFPAY | PROVIDERS: Family Provider Family Medicine; PCP Family Medicine; Referring Provider Family Medicine; Visit Provider Physician Assistant | DX: E11.621 Type 2 diabetes mellitus with foot ulcer (principal); L97.428 Non-pressure chronic ulcer of left heel and midfoot with other specified severity; E11.42 Type 2 diabetes mellitus with diabetic polyneuropathy; I73.9 Peripheral vascular disease, unspecified | CPT/HCPCS: 99183; G0277 ==

== ENCOUNTER → 2024-12-20 13:22 | Outpatient (CLI) | payer OTHER, SELFPAY | PROVIDERS: Family Provider Family Medicine; PCP Family Medicine; Referring Provider Family Medicine; Visit Provider Surgery | DX: L97.428 Non-pressure chronic ulcer of left heel and midfoot with other specified severity (principal); E11.621 Type 2 diabetes mellitus with foot ulcer; E11.42 Type 2 diabetes mellitus with diabetic polyneuropathy; I73.9 Peripheral vascular disease, unspecified | CPT/HCPCS: 99183; G0277 ==

== ENCOUNTER → 2024-12-21 14:16 | Outpatient (CLI) | payer OTHER, SELFPAY | PROVIDERS: Family Provider Family Medicine; PCP Family Medicine; Referring Provider Family Medicine; Visit Provider Surgery | DX: L97.428 Non-pressure chronic ulcer of left heel and midfoot with other specified severity (principal); E11.621 Type 2 diabetes mellitus with foot ulcer; E11.42 Type 2 diabetes mellitus with diabetic polyneuropathy; I73.9 Peripheral vascular disease, unspecified | CPT/HCPCS: 99183; G0277 ==

== ENCOUNTER → 2024-12-22 13:34 | Outpatient (CLI) | payer OTHER, SELFPAY ==
--- NOTE | 2024-12-22 | OV.WND_ITS ---
PROGRESS NOTE DETAILS PATIENT NAME: RANULFO CARUSO PATIENT NUMBER: [id number] CLINICIAN: FAISAL PATRICK R.N. PATIENT DATE OF : 1940 PHYSICIAN / POULTRY OFFAL ICER: WESLEY ENCISO PATIENT SUBJECTIVE CHIEF COMPLAINT THIS INFORMATION WAS OBTAINED FROM THE PATIENT. I HAD A FALL ON FRIDAY AND HURT MY RIGHT SIDE. GENERAL NOTES LEFT HEEL DIABETIC ULCER. ALLERGIES CEPHALEXIN (SEVERITY: MODERATE, REACTION: VOMITING, DIARRHEA), LINEZOLID (REACTION: VOMITING, DIARRHEA), HYDROFERA BLUE READY (SEVERITY: MODERATE, REACTION: RASH) HPI THIS INFORMATION WAS OBTAINED FROM THE PATIENT. THE FOLLOWING HPI ELEMENTS WERE DOCUMENTED FOR THE PATIENT'S WOUND: LOCATION: L HEEL DURATION: 12/26/2023 CONTEXT: ARTERIAL, DIABETIC THE PATIENT IS AN 84 YO MALE WITH PMH SEVERE PERIPHERAL ARTERY DISEASE, DMT2, HTN, HLD, AFIB ON XARELTO, TIA, CHF RETURNS TO WOUND CLINIC FOR FOLLOW UP OF A HERNANDEZ 3 DIABETIC ULCER LEFT HEEL. THE PATIENT IS CURRENTLY RECEIVING DRESSING CHANGES WITH SILVER COLLAGEN WITH HEEL PROTECTORS AT NIGHT AND A DEFENDER BOOT FOR PRESSURE OFFLOADING. THE PATIENT IS CURRENTLY UNDERGOING HYPERBARIC OXYGEN THERAPY AND HAS RECEIVED 29 TREATMENTS SO FAR WHICH HE HAS TOLERATED WITHOUT ANY DIFFICULTY HOWEVER TREATMENT WAS INTERRUPTED FOR 1 WEEK WHILE AWAITING FOR APPROVAL FROM INSURANCE FOR ADDITIONAL TREATMENTS. HE HAD FOLLOW UP WITH VASCULAR WHO ADVISED NO SURGICAL INTERVENTION DUE TO RISKS > BENEFITS. THE PATIENT DENIES FEVER OR CHILLS AND REPORTS A GOOD APPETITE AND GOOD CONTROL OF BLOOD SUGARS. SINCE LAST VISIT THE PATIENT DID FALL AND HE INJURED HIS RIGHT CHEST. HE DOES HAVE SOME PAIN IN THE RIGHT CHEST WITH DEEP BREATH BUT HAS NOT HAD ANY SHORTNESS OF BREATH. THE PATIENT IS TAKING PROTEIN SUPPLEMENTS. THE PATIENT DENIES HAVING ANY OTHER RECENT CHANGES IN HIS OVERALL HEALTH. ON EXAM TODAY THE MEASUREMENTS ARE SLIGHTLY LARGER AND THERE IS SOME PERIWOUND BRUISING. THERE IS A NEW ULCER POSTERIOR RIGHT HEEL, NO SIGN OF INFECTION. THE PATIENT IS FOLLOWED BY DR. TORRES AND COMPLETED DALBOVANCIN AND HAS RECENTLY COMPLETED A PROLONGED COURSE OF DOXYCYCLINE.FALL LABS 11/16/24: CULTURE GREW SCANT GROWTH MIXED SKIN SABA 10/09/24: ELECTROLYTES NORMAL, LFTS NORMAL, CALCIUM 10.9 10/07/24: CT SCAN: DEEP SKIN ULCERATION AT THE POSTERIOR LATERAL ASPECT OF THE HEEL TO THE DEPTH OF THE UNDERLYING CALCANEUS. NO FLUID COLLECTION OR ABSCESS IS SEEN. NO CORTICAL EROSION OR DESTRUCTION IS SEEN WITH CT TO SUGGEST OSTEOMYELITIS. 08/02/24: XRAY LEFT HEEL - NO INTERVAL CHANGE APPRECIATED. NO OSSEOUS EROSION IS IDENTIFIED. 07/23/24: CULTURE STAPHYLOCOCCUS LUGDUNENSIS, KOCURIA KISTINAE 04/28/24:BONE SCAN IMPRESSION READ POTENTIAL OSTEOMYELITIS INVOLVING THE RIGHT LATERAL ANKLE, SHADYRANULFO [id number] 1940 RECOMMENDED MRI 04/06/24: HEMOGLOBIN A1C 5.8 03/12/24: LEFT FOOT XRAY NO BONY EROSIONS TO SUGGEST OSTEOMYELITIS. DISRUPTED ARTHORDESIS SCREW. 02/20/24: WBC 9.3, HGB 11.5, HCT 35.5, MCH 89.4, EOS 500, CR 0.96, GFR >60, GLUCOSE 110 02/13/24: CULTURE TO RIGHT HEEL KLEBSIELLA OXYTOCA AND LEFT PRETIBIAL STAPH EPIDERMIDIS 01/09/24: RIGHT FOOT XRAY WITH FRACTURE OF SCREW AND LUCENCY TO 2ND DIGIT FRACTURE VS OSTEO, REFERRED TO PODIATRY 01/09/24: CULTURE RIGHT FOOT CORYNEBACTERIUM STRIATUM, RX'D LINEZOLID. MRI C/I D/T DEFIBRILLATOR 11/28/23: CULTURE RIGHT FOOT CORYNEBACTERIUM STRIATUM 11/28/23: BILATERAL CT ANGIO, ID TO START IV ANTIBIOTICS 11/21/23 LEFT CALCANEAL XRAY NO EVIDENCE OSTEOMYELITIS, SOFT TISSUE SWELLING, SEVERE ATHEROSCLEROSIS. TIB/FIB XRAY ORTHOPEDIC HARDWARE NOTED, SEVERE ATHEROSCLEROTIC VASCULAR CALCIFICATIONS 11/21/23 ARTERIAL US DAMPENED WAVEFORMS BILATERALLY WITHIN INFRAGENICULATE ARTERIES IN ADDITION TO HEAVILY CALCIFIED VESSELS. FOCAL HEMODYNAMICALLY SIGNIFICANT STENOSIS AT LEVEL OF POPLITEAL ARTERIES CANNOT BE EXCLUDED. IF FURTHER CHARACTERIZATION WARRANTED TO EVALUATE FOR THERAPEUTIC INTERVENTION, CTA WITH B/L LOWER EXTREMITY RUNOFF RECOMMENDED 11/14/23 GUILLE: PAD, NOTES REQUESTED FROM VASCULAR 11/12/23 CULTURE POS FOR PSEUDOMONAS, E COLI, K PNEUMONIA PER PT LAST A1C W/IN 2 MOS WNL FAMILY HISTORY THIS INFORMATION WAS OBTAINED FROM THE PATIENT. CANCER- FATHER, SIBLING OTHER- MOTHER SOCIAL HISTORY THIS INFORMATION WAS OBTAINED FROM THE PATIENT. NEVER SMOKER ALCOHOL USE: 1 GLASS OF WINE /WEEK CAFFEINE USE: 2 CUPS PER DAY CHILDREN ILLICIT DRUG USE: VAPED MARIJUANA OCCASIONALLY LIVES IN: OWN HOME MARITAL STATUS: (EKATERINA) RETIRED: PROFESSOR MEDICAL HISTORY THIS INFORMATION WAS OBTAINED FROM THE CHART, PATIENT. PATIENT HAS A MEDICAL HISTORY OF: ARTHRITIS TYPE II DIABETES HEART MURMUR HYPERTENSION MEMORY LOSS (SHORT TERM) TRANSIENT ISCHEMIC ATTACK (TIA) - 10/06/2023 PAD LOWER EXTREMITY EDEMA ANEMIA CHRONIC CHF EXERTIONAL DYSPNEA RANULFO CARUSO [id number] 1940 INSOMNIA LUMBAR REGION WITH NEUROGENIC CLAUDICATION VENTRICULAR TACHYCARDIA (ICD IMPLANTED (12/2022)) ISCHEMIC CARDIOMYOPATHY GASTROESOPHAGEAL REFLUX DISEASE IRON DEFICIENCY B12 DEFICIENCY ADHD BASAL CELL CARCINOMA (NOSE) ATRIAL FIBRILLATION OBSTRUCTIVE SLEEP APNEA DIVERTICULITIS DYSLIPIDEMIA MYOCARDIAL INFARCTION (NC) (09/2022) ADDITIONAL INFORMATION DOES PATIENT HAVE A HISTORY OF CANCER? YES? COMPLETE ALL QUESTIONS.: YES LOCATION OF CANCER: SKIN (NOSE) SURGICAL HISTORY THIS INFORMATION WAS OBTAINED FROM THE CHART, PATIENT. PATIENT HAS A SURGICAL HISTORY OF: CORONARY ARTERY BYPASS GRAFT (CABG)- CARDIAC SURGERY- CARDIAC VALVE REPLACEMENT- CARDIAC VALVE SURGERY- CATARACT SURGERY- 02/27/2022 (LEFT) CATARACT SURGERY- 03/20/2022 (RIGHT) HIP REPLACEMENT, TOTAL JOINT REPLACEMENT- 12/17/2021 (RIGHT) RECONSTRUCTION OF BOTH FEET- (ARTIFICIAL ANKLE OF LEFT FOOT) TOOTH EXTRACTION AND IMPLANTS- PROSTATE SURGERY- TONSILLECTOMY AND ADENOIDECTOMY- (89 (< AGE 10)) VASECTOMY- REVIEW OF SYSTEMS (ROS) THIS INFORMATION WAS OBTAINED FROM THE PATIENT. COMPLAINTS AND SYMPTOMS PATIENT COM PLAINS OF: CARDIOVASCULAR (CENTRAL): DYSPNEA ON EXERTION CO-MORBID CONDITIONS: CONGESTIVE HEART FAILURE, CORONARY ARTERY DISEASE, DIABETES, PERIPHERAL ARTERIAL DISEASE PRIOR WOUND HISTORY: DRAINAGE PATIENT DENIES COM PLAINTS OR SY M PTOM S RELATED TO: GENERAL NOTES CARDIOVASCULAR (CENTRAL): CHEST PAIN CONSTITUTIONAL SYMPTOMS (GENERAL HEALTH): CHILLS, FEVER, LOSS OF APPETITE PRIOR WOUND HISTORY: ERYTHEMA, MALODOR, PAIN RANULFO CARUSO [id number] 1940 RESPIRATORY: COUGH, SHORTNESS OF BREATH OBJECTIVE VITALS HEIGHT/LENGTH: 77 IN (195.58 CM), WEIGHT: 199.7 LBS (90.77 KGS), BMI: 23.7, TEMPERATURE: 97.3 ?F (36.28 ?C), PULSE: 73 BPM, RESPIRATORY RATE: 16 BREATHS/MIN, BLOOD PRESSURE: 136/83 MMHG, CAPILLARY BLOOD GLUCOSE: 105 MG/DL, PULSE OXIMETRY: 100 %. GENERAL NOTES VITALS FROM HBOT POST TREATMENT PHYSICAL EXAM CONSTITUTIONAL: VITAL SIGNS REVIEWED AND NOTED. GENERALIZED WEAKNESS. IN NO APPARENT DISTRESS. EYES: CONJUNCTIVA WITHOUT ICTERUS. EARS, NOSE, MOUTH, AND THROAT: EXTERNAL INSPECTION OF EARS AND NOSE APPEAR NORMAL. CANALS CLEAR WITH NORMAL TYMPANIC MEMBRANES. RESPIRATORY: EVEN RESPIRATIONS WITHOUT USE OF ACCESSORY MUSCLES. NO INTERCOASTAL RETRACTIONS NOTED. EVEN AND NON LABORED RESPIRATION. CARDIOVASCULAR: REGULAR RATE AND RHYTHM. INTEGUMENTARY (HAIR, SKIN): MILD PERIWOUND BRUISING. NO SWELLING OR TENDERNESS. SEE WOUND ASSESSMENT. SKIN WARM AND DRY. NO RASHES. NEUROLOGICAL: DECREASED LOWER EXTREMITY SENSATION. PSYCHIATRIC: ORIENTATION TO TIME, PLACE AND PERSON: NORMAL AFFECT WITH NORMAL THOUGHT PATTERN. ADDITIONAL INFORMATION THE PATIENT'S POTENTIAL TO HEAL IS: FAIR. WOUND ASSESSMENT(S) WOUND #6 LEFT HEEL IS A CHRONIC HERNANDEZ GRADE 3 DIABETIC ULCER ACQUIRED ON 12/26/2023 AND HAS RECEIVED A STATUS OF NOT HEALED. INITIAL WOUND ENCOUNTER MEASUREMENTS ARE 1.4CM LENGTH X 1.5CM WIDTH X 0.3 CM DEPTH, WITH AN AREA OF 2.1 SQ CM AND A VOLUME OF 0.63 CUBIC CM.INITIAL WOUND ENCOUNTER PREVIOUS MEASUREMENTS FROM 12/16/2024 ARE 0.7CM LENGTH X 0.5CM WIDTH X 0.2CM DEPTH, WITH AN AREA OF 0.35 SQ CM AND A VOLUME OF 0.07 CUBIC CM. TENDON AND ADIPOSE ARE EXPOSED. NO TUNNELING HAS BEEN NOTED. NO SINUS TRACT HAS BEEN NOTED. NO UNDERMINING HAS BEEN NOTED. THERE IS A MODERATE AMOUNT OF SEROSANGUINEOUS DRAINAGE NOTED WHICH HAS NO ODOR. THE PATIENT REPORTS A WOUND PAIN OF LEVEL 0/10. THE WOUND MARGIN IS UNATTACHED WOUND BED HAS YES, BRIGHT RED, PINK, FIRM, GRANULATION, YES SLOUGH, NO ESCHAR, YES EPITHELIALIZATION. THE PERIWOUND SKIN EXHIBITED EDEMA, ECCHYMOSIS AND ERYTHEMA. THE PERIWOUND SKIN DID NOT EXHIBIT BRAWNY INDURATION, EXCORIATION, INDURATION, CALLUS, CREPITUS, FLUCTUANCE, RASH, MACERATION, ATROPHIE DUSTIN, CYANOSIS, HEMOSIDEROSIS, PALLOR AND RUBOR. THE PERIWOUND SKIN WAS NOT FRIABLE, DRY/SCALY AND MOIST. THE TEMPERATURE OF THE PERIWOUND SKIN IS WNL. PERIWOUND SKIN DOES NOT EXHIBIT SIGNS OR SYMPTOMS OF INFECTION. LOCAL PULSE IS DOPPLER. ADDITIONAL INFORMATION OTHER DEVITALIZED TISSUE PRESENT: BIOFILM WOUND #11 RIGHT HEEL IS AN ACUTE HERNANDEZ GRADE 1 DIABETIC ULCER ACQUIRED ON 12/22/2024 AND HAS RECEIVED A STATUS OF NOT HEALED. INITIAL WOUND ENCOUNTER MEASUREMENTS ARE 0.2CM LENGTH X 0.2CM WIDTH X 0.1 CM DEPTH, WITH AN AREA OF 0.04 SQ CM AND A VOLUME OF 0.004 CUBIC CM. ASSESSMENT OF EXPOSED RANULFO CARUSO [id number] 1940 STRUCTURES LIMITED TO THE BREAKDOWN OF SKIN. NO TUNNELING HAS BEEN NOTED. NO SINUS TRACT HAS BEEN NOTED. NO UNDERMINING HAS BEEN NOTED. THERE IS A SMALL AMOUNT OF SEROUS DRAINAGE NOTED WHICH HAS NO ODOR. THE PATIENT REPORTS A WOUND PAIN OF LEVEL 0/10. THE WOUND MARGIN IS ATTACHED WOUND BED HAS NO, GRANULATION, NO SLOUGH, NO ESCHAR, NO EPITHELIALIZATION. THE PERIWOUND SKIN EXHIBITED CALLUS, ECCHYMOSIS AND ERYTHEMA. THE PERIWOUND SKIN DID NOT EXHIBIT BRAWNY INDURATION, EDEMA, EXCORIATION, INDURATION, CREPITUS, FLUCTUANCE, RASH, MACERATION, ATROPHIE DUSTIN, CYANOSIS, HEMOSIDEROSIS, PALLOR AND RUBOR. THE PERIWOUND SKIN WAS NOT FRIABLE, DRY/SCALY AND MOIST. THE TEMPERATURE OF THE PERIWOUND SKIN IS WNL. PERIWOUND SKIN DOES NOT EXHIBIT SIGNS OR SYMPTOMS OF INFECTION. LOCAL PULSE IS DOPPLER. GENERAL NOTES NO PHOTO AVAILABLE. ADDITIONAL INFORMATION OTHER DEVITALIZED TISSUE PRESENT: BIOFILM ASSESSMENT ACTIVE PROBLEMS ICD-10 (ENCOUNTER DIAGNOSIS) L97.428 - NON-PRESSURE CHRONIC ULCER OF LEFT HEEL AND MIDFOOT WITH OTHER SPECIFIED SEVERITY (ENCOUNTER DIAGNOSIS) E11.621 - TYPE 2 DIABETES MELLITUS WITH FOOT ULCER (ENCOUNTER DIAGNOSIS) E11.42 - TYPE 2 DIABETES MELLITUS WITH DIABETIC POLYNEUROPATHY (ENCOUNTER DIAGNOSIS) I73.9 - PERIPHERAL VASCULAR DISEASE, UNSPECIFIED (ENCOUNTER DIAGNOSIS) L97.411 - NON-PRESSURE CHRONIC ULCER OF RIGHT HEEL AND MIDFOOT LIMITED TO BREAKDOWN OF SKIN GENERAL NOTES HERNANDEZ 3 DIABETIC ULCER LEFT HEEL, MEASUREMENTS SLIGHTLY LARGER, PERIWOUND BRUISING HERNANDEZ 1 DIABETIC ULCER POSTERIOR RIGHT HEEL THE FOLLOWING FACTORS HAVE BEEN IDENTIFIED THAT MAY AFFECT WOUND HEALING: DEVITALIZED TISSUE BIOFILM ADVANCED AGE PRESSURE DIABETES PAD INFECTION GOALS: REMOVE DEVITALIZED TISSUE REMOVE AND PREVENT BIOFILM REDUCE PRESSURE TREAT INFECTION PROTEIN SUPPLEMENTATION PLAN: DEBRIDEMENT, CONTINUE DRESSING CHANGES WITH SILVER COLLAGEN, USE E HOB BOOT FOR PRESSURE OFFLOADING. START DRESSING CHANGES WITH SILVER COLLAGEN TO RIGHT HEEL. ORDER CHEST X-RAY TO EVALUATE FOR ANY TRAUMA FROM HIS RECENT FALL. CONTINUE HYPERBARIC OXYGEN THERAPY. CONTINUE PROTEIN SUPPLEMENTATION, FOLLOW UP IN 1 WEEK FOR RECHECK. THE PATIENT HAS BEEN IMPROVING WITH HYPERBARIC OXYGEN THERAPY. PROCEDURES RANULFO CARUSO [id number] WOUND #6 WOUND #6 (DIABETIC ULCER) IS LOCATED ON THE LEFT HEEL. A SKIN/SUBCUTANEOUS TISSUE LEVEL SURGICAL DEBRIDEMENT WITH A TOTAL AREA DEBRIDED OF 2.1 SQ CM. WAS PERFORMED BY WESLEY ENCISO MD. SUBCUTANEOUS WAS REMOVED ALONG WITH DEVITALIZED TISSUE: BIOFILM, EXUDATE AND SLOUGH. THE FOLLOWING INSTRUMENT(S) WERE USED: CURETTE. PAIN CONTROL WAS ACHIEVED USING EMLA LIDOCAINE/PRILOCAINE 2.5%/2.5%. A TIME OUT WAS CONDUCTED PRIOR TO THE START OF THE PROCEDURE. A MINIMAL AMOUNT OF BLEEDING WAS CONTROLLED WITH PRESSURE. THE PROCEDURE WAS TOLERATED WELL WITH A PAIN LEVEL OF 0 THROUGHOUT AND A PAIN LEVEL OF 0 FOLLOWING THE PROCEDURE. POST DEBRIDEMENT MEASUREMENTS: 1.4CM LENGTH X 1.5CM WIDTH X 0.4CM DEPTH; WITH AN AREA OF 2.1 SQ CM AND A VOLUME OF 0.84 CUBIC CM. ADDITIONAL INFORMATION MUSCLE FASCIA OR BONE REMOVED AND SENT TO PATHOLOGY?: NO WOUND #11 WOUND #11 (DIABETIC ULCER) IS LOCATED ON THE RIGHT HEEL. A SELECTIVE DEBRIDEMENT WITH A TOTAL AREA DEBRIDED OF 0.04 SQ CM. WAS PERFORMED BY WESLEY ENCISO MD. TO REMOVE DEVITALIZED TISSUE: BIOFILM AND EXUDATE. THE FOLLOWING INSTRUMENT(S) WERE USED: CURETTE. PAIN CONTROL WAS ACHIEVED USING EMLA LIDOCAINE/PRILOCAINE 2.5%/2.5%. A TIME OUT WAS CONDUCTED PRIOR TO THE START OF THE PROCEDURE. A MINIMAL AMOUNT OF BLEEDING WAS CONTROLLED WITH PRESSURE. THE PROCEDURE WAS TOLERATED WELL WITH A PAIN LEVEL OF 0 THROUGHOUT AND A PAIN LEVEL OF 0 FOLLOWING THE PROCEDURE. POST DEBRIDEMENT MEASUREMENTS: 0.2CM LENGTH X 0.2CM WIDTH X 0.1CM DEPTH; WITH AN AREA OF 0.04 SQ CM AND A VOLUME OF 0.004 CUBIC CM. PLAN WOUND ORDERS: WOUND #6 LEFT HEEL HAND HYGIENE HAND HYGIENE - WASH HANDS BEFORE AND AFTER WOUND CARE. CALL THE WOUND CENTER AT [phone] IF YOU HAVE SIGNS OR SYMPTOMS OF INFECTION, FEVER CHILLS OR SHAKES, INCREASED DRAINAGE, INCREASED ODOR OR UNUSUAL REDNESS. AFTER WOUND CENTER HOURS PLEASE NOTIFY YOUR PCP OR GO TO THE EMERGENCY ROOM. CLEANSER CLEANSE WOUND WITH NORMAL SALINE - IN CLINIC. CLEANSE WOUND AND VIVIAN WOUND WITH A NON-CYTOTOXIC WOUND CLEANSER. - VASHE CLEANSER AT HOME. MAY SHOWER, LEAVE WOUND DRESSING INTACT. COVER WOUND DRESSING WITH A WATERPROOF BARRIER. KEEP DRESSING DRY. NO BATHS PLEASE. PROCEDURE / ANESTHETIC 5% TOPICAL LIDOCAINE TO WOUND BED PRIOR TO PROCEDURE, IN CLINIC ONLY. DRESSING ORDERS APPLY DRESSING(S) AND SECURE WITH: - PURACOL PLUS AG, MOISTENED WITH NORMAL SALINE OR DISTILLED WATER. OPTIFOAM SECURED WITH TAPE. DRESSING CHANGE FREQUENCY CHANGE DRESSING EVERY OTHER DAY. - OR MORE FREQUENTLY FOR DRAINAGE CONTROL. CHANGE DRESSING IF IT BECOMES SOILED OR WET. WOUND #11 RIGHT HEEL HAND HYGIENE HAND HYGIENE - WASH HANDS BEFORE AND AFTER WOUND CARE. CALL THE WOUND CENTER AT [phone] IF YOU HAVE SIGNS OR SYMPTOMS OF INFECTION, FEVER CHILLS OR SHAKES, INCREASED DRAINAGE, INCREASED ODOR OR UNUSUAL REDNESS. AFTER WOUND CENTER HOURS PLEASE NOTIFY YOUR PCP OR GO TO THE EMERGENCY ROOM. CLEANSER CLEANSE WOUND WITH NORMAL SALINE - IN CLINIC. CLEANSE WOUND AND VIVIAN WOUND WITH A NON-CYTOTOXIC WOUND CLEANSER. - VASHE CLEANSER AT HOME. MAY SHOWER, LEAVE WOUND DRESSING INTACT. COVER WOUND DRESSING WITH A WATERPROOF BARRIER. KEEP DRESSING DRY. NO BATHS PLEASE. RANULFO CARUSO [id number] 1940 PROCEDURE / ANESTHETIC 5% TOPICAL LIDOCAINE TO WOUND BED PRIOR TO PROCEDURE, IN CLINIC ONLY. DRESSING ORDERS APPLY DRESSING(S) AND SECURE WITH: - PURACOL PLUS AG, MOISTENED WITH NORMAL SALINE OR DISTILLED WATER. OPTIFOAM SECURED WITH TAPE. DRESSING CHANGE FREQUENCY CHANGE DRESSING EVERY OTHER DAY. - OR MORE FREQUENTLY FOR DRAINAGE CONTROL. CHANGE DRESSING IF IT BECOMES SOILED OR WET. ADDITIONAL ORDERS: COMPRESSION/EDEMA CONTROL ELEVATE LEG(S) ABOVE THE LEVEL OF THE HEART MUCH POSSIBLE. AVOID STANDING IN ONE POSITION FOR MORE THAN 10 MINUTES. AVOID SITTING WITH LEGS DOWN. DO NOT CROSS LEGS WHEN SITTING. OFF-LOADING / PRESSURE RELIEF TOTAL NON-WEIGHT BEARING USING: - EHOB BOOTS TO BOTH HEELS WHILE IN BED OR RESTING IN A RECLINED POSITION. USE/WEAR WHEN WALKING: - CROC SHOES WITHOUT HEEL BACK TO PREVENT PRESSURE/RUBBING. DIETARY TAKE VITAMIN C 1000MG BY MOUTH DAILY. TAKE ZINC 25MG BY MOUTH DAILY. INCREASE THE PROTEIN IN YOUR DIET. - SUPPLEMENT WITH DIABETIC FRIENDLY PROTEIN SHAKES IN BETWEEN REGULAR MEALS. ACTIVITY OTHER ORDER: - DECREASE ACTIVITY MUCH POSSIBLE WHILE WE ARE CLOSELY MONITORING THE WOUND ON YOUR HEEL. FOLLOW-UP APPOINTMENTS RETURN APPOINTMENT 1 WEEK SCRIBING ATTESTATION I ATTEST, THE NURSE, THAT I SCRIBED THESE ORDERS FOR THE WOUND CARE PROVIDER. PROVIDER REVIEW AND ATTESTATION: REVIEWED AND EVALUATED LABS. REVIEWED HOSPITAL RECORDS. DISCUSSED THE PLAN OF CARE @ BEDSIDE WITH - THE PATIENT AND I AGREE AND ATTEST TO THE ABOVE INFORMATION PROVIDED FROM OTHER LICENSED PROFESSIONALS. HBO2 THERAPY-DIABETIC WOUND(S) LOWER EXTREMITY INDICATION: IF APPROPRIATE FOR TREATMENT, BEGIN HBO THERAPY PER PROTOCOL. TREATMENT PROTOCOL: 2.0 YARITZA X 90 MINUTES WITH 100% OXYGEN. OFFLOAD EXTREMITY, CONTINUE WOUND CARE, MANAGE BLOOD SUGAR. TOTAL # OF HBO TREATMENTS: 30 TREATMENTS AND REEVALUATE. - +10, TOTAL 40 TREATMENTS ASCENT TIME: 1.0 PSI/MINUTE MAY ADVANCE TO 1.5PSI/MINUTE TOLERATED. DESCENT TIME: 1.0 PSI/MINUTE MAY ADVANCE TO 1.5PSI/MINUTE TOLERATED. FOR DIABETIC PATIENTS-FINGER STICK BLOOD GLUCOSE PRE- AND POST- HBO TREATMENT. PRE AND POST VITAL SIGNS FOR EACH TREATMENT. ANCILLARY SERVICES: RADIOLOGY: CXR - PLEASE HAVE CHEST X-RAY COMPLETED TODAY. YOU DO NOT NEED AN APPOINTMENT FOR THE X-RAY. PLAN OF CARE: 01. ENSURE/ESTABLISH OPTIMAL BLOOD FLOW : - COMPLETE LOWER EXTREMITY ASSESSMENT STATUS: CONTINUED DATE: 12/22/2024 - PERFORM NON-INVASIVE VASCULAR TESTING (I.E. GUILLE) AND DOCUMENT FINDINGS. CONSIDER REPEATING WHEN WOUND HEALING <40% AFTER 30 DAYS OF WOUND CARE. STATUS: COMPLETED DATE: 11/14/2023 - ORDER VASCULAR CONSULT FOR EVALUATION/TREATMENT AND/OR NON-INVASIVE VASCULAR TESTING. STATUS: COMPLETED DATE: 05/18/2024 02. ASSESS FOR/TREAT INFECTION : RANULFO CARUSO [id number] 1940 - EVALUATE FOR SIGNS AND SYMPTOMS OF INFECTION AND DOCUMENT FINDINGS. STATUS: CONTINUED DATE: 12/22/2024 03. DEBRIDE WEEKLY OR MORE OFTEN PRN : - EVALUATE PATIENT IN CENTER WEEKLY TO ASSESS WOUND BED AND MARGINS FOR NEED FOR DEBRIDEMENT. STATUS: CONTINUED DATE: 12/22/2024 - DEBRIDEMENT BY ANY METHOD TO REMOVE DEVITALIZED/NECROTIC TISSUE TO PROMOTE HEALING AND PREVENT FURTHER COMPLICATIONS. GOAL IS TO STIMULATE AND/OR MAINTAIN ACUTE PHASE OF WOUND HEALING BY REDUCING BACTERIAL BURDEN AND DEVITALIZED/NON-VIABLE TISSUE. STATUS: CONTINUED DATE: 12/22/2024 04. OPTIMIZE GLUCOSE CONTROL AND NUTRITION : - ORDER/REVIEW PERTINENT LABS TO EVALUATE RENAL FUNCTION, GLUCOSE CONTROL, AND NUTRITIONAL STATUS. STATUS: CONTINUED DATE: 12/22/2024 05. OFFLOADING PLAN : - EVALUATE PLAN FOR OFFLOADING STATUS: CONTINUED DATE: 12/22/2024 - ADVISE PATIENT TO OFFLOAD THE FOOT ULCER. (I.E. HALF SHOE, SURGICAL SHOE, INSERT, CUSTOM SHOE, FELT AND FOAM, CAM WALKER, MULTIPODUS SPLINT, TOTAL CONTACT CAST, BI-VALVE CAST, POSTERIOR SPLINT). STATUS: CONTINUED DATE: 12/22/2024 06. OPTIMIZE HOST FACTORS: - ASSESS AND REVIEW PATIENT HISTORY FOR WOUND ETIOLOGY, CO-MORBID CONDITIONS, MEDICATION REGIME, AND SMOKING HISTORY. STATUS: CONTINUED DATE: 12/22/2024 07. DRESSING SELECTION : - EVALUATE FOR DRESSING-RELATED FACTORS, SUCH AVAILABILITY, WEAR TIME, ADAPTABILITY AND USE TO BETTER OPTIMIZE WOUND HEALING AND PATIENT COMPLIANCE. STATUS: CONTINUED DATE: 12/22/2024 - CHOOSE TOPICAL TREATMENTS AND/OR DRESSING BASED ON WOUND TYPE AND APPEARANCE, PERIWOUND SKIN CONDITION, WOUND SIZE AND DEPTH, ANATOMIC LOCATION, VOLUME OF EXUDATE, EDEMA IN THE LOWER EXTREMITIES, AND RISK OR PRESENCE OF INFECTION. STATUS: CONTINUED DATE: 12/22/2024 08. ADVANCED MODALITIES : - SET TREATMENT GOALS ACCORDING TO PATIENT AND/OR CAREGIVER?S ABILITY/ COMPLIANCE. STATUS: CONTINUED DATE: 12/22/2024 - RE-EVALUATE PLAN OF CARE IF NO EVIDENCE OF HEALING (40% IN 4 WEEKS). STATUS: CONTINUED DATE: 12/22/2024 09. FALL PREVENTION : - ENCOURAGE INSTALLATION AND USE GRAB BARS IN BATHROOMS. STATUS: CONTINUED DATE: 12/22/2024 10. PAIN MANAGEMENT : - COMPLETE PAIN ASSESSMENT STATUS: CONTINUED DATE: 12/22/2024 - PREPARE PATIENT TO SET REASONABLE EXPECTATIONS PRIOR TO PROCEDURE. STATUS: CONTINUED DATE: 12/22/2024 11. MEASURABLE GOALS FOR WOUND HEALING AND/OR HYPERBARIC OXYGEN THERAPY : - DECREASE WOUND DIMENSIONS STATUS: CONTINUED DATE: 12/22/2024 - WOUND CLOSURE STATUS: CONTINUED DATE: 12/22/2024 12. DURATION/FREQUENCY OF WOUND CARE VISITS : - 1X WEEKLY FOR 30 DAYS RANULFO CARUSO [id number] 1940 STATUS: CONTINUED DATE: 12/22/2024 ELECTRONIC SIGNATURE(S) SIGNED BY: DATE: WESLEY ENCISO MD 12/22/2024 16:20:37 (PT) ENTERED BY: WESLEY ENCISO MD ON 12/22/2024 16:19:02 (PT) RANULFO CARUSO [id number] 1940
== END ==
PROVIDERS: Family Provider Family Medicine; PCP Family Medicine; Referring Provider Family Medicine; Visit Provider Surgery
DX: E11.621 Type 2 diabetes mellitus with foot ulcer (principal); L97.422 Non-pressure chronic ulcer of left heel and midfoot with fat layer exposed; L97.411 Non-pressure chronic ulcer of right heel and midfoot limited to breakdown of skin; I73.9 Peripheral vascular disease, unspecified; L53.8 Other specified erythematous conditions; R60.0 Localized edema; L84 Corns and callosities
CPT/HCPCS: 11042; 97597; 99183; 99213; G0277

== ENCOUNTER → 2024-12-22 15:39 | Outpatient (CLI) | payer OTHER, SELFPAY ==
--- NOTE | 2024-12-22 15:41 | DI.RAD.S_ITS ---
PROCEDURE: XR CHEST 2V INDICATIONS: Evaluate for HBOT post ground level fall on 12/19/24 TECHNIQUE: 2 views of the chest were acquired. COMPARISON: None. FINDINGS: Surgical changes and devices: Right pacemaker/AICD. Left atrial appendage clip. Post median sternotomy and CABG. Lungs and pleura: Somewhat prominent pulmonary markings. No consolidation. No pleural effusions or pneumothorax. Mediastinum: Mediastinal contours are normal. Heart size is prominent. Bones and chest wall: No suspicious bony abnormalities. No obvious displaced fracture. Soft tissues appear unremarkable. IMPRESSION: Question pulmonary vasculature engorgement. No pleural effusion. Dictated by: Chaparro Rogers M.D. on 12/23/2024 at 12:18 Approved by: Chaparro Rogers M.D. on 12/23/2024 at 12:21
== END ==
PROVIDERS: Family Provider Family Medicine; PCP Family Medicine; Referring Provider Surgery; Visit Provider Surgery
DX: E11.621 Type 2 diabetes mellitus with foot ulcer (principal); L97.422 Non-pressure chronic ulcer of left heel and midfoot with fat layer exposed; L97.411 Non-pressure chronic ulcer of right heel and midfoot limited to breakdown of skin; I73.9 Peripheral vascular disease, unspecified; L53.8 Other specified erythematous conditions; R60.0 Localized edema; L84 Corns and callosities
CPT/HCPCS: 11042; 71046; 97597; 99213; G0277

== ENCOUNTER → 2024-12-23 15:53 | Outpatient (CLI) | payer OTHER, SELFPAY | PROVIDERS: Family Provider Family Medicine; PCP Family Medicine; Referring Provider Family Medicine; Visit Provider Surgery | DX: L97.428 Non-pressure chronic ulcer of left heel and midfoot with other specified severity (principal); E11.621 Type 2 diabetes mellitus with foot ulcer; E11.42 Type 2 diabetes mellitus with diabetic polyneuropathy; I73.9 Peripheral vascular disease, unspecified; L97.411 Non-pressure chronic ulcer of right heel and midfoot limited to breakdown of skin | CPT/HCPCS: 99183; G0277 ==

== ENCOUNTER → 2024-12-24 11:35 | Outpatient (CLI) | payer OTHER, SELFPAY ==
--- NOTE | 2024-12-24 | OV.WND_ITS ---
PROGRESS NOTE DETAILS PATIENT NAME: RANULFO CARUSO PATIENT NUMBER: [id number] CLINICIAN: JOSE ESTES RN PATIENT DATE OF : 1940 PHYSICIAN / SAFE TECHNICIAN: SUMMER PEDRO PA-C PATIENT SUBJECTIVE CHIEF COMPLAINT THIS INFORMATION WAS OBTAINED FROM THE PATIENT. WE NOTICED THE TOE THIS MORNING GENERAL NOTES RIGHT AND LEFT HEEL DIABETIC ULCER. RIGHT 2ND TOE ULCER. ALLERGIES CEPHALEXIN (SEVERITY: MODERATE, REACTION: VOMITING, DIARRHEA), LINEZOLID (REACTION: VOMITING, DIARRHEA), HYDROFERA BLUE READY (SEVERITY: MODERATE, REACTION: RASH) HPI THIS INFORMATION WAS OBTAINED FROM THE PATIENT. THE FOLLOWING HPI ELEMENTS WERE DOCUMENTED FOR THE PATIENT'S WOUND: LOCATION: 2ND R TOE DURATION: 12/24/24 CONTEXT: DIABETIC ULCER LOCATION: L HEEL, R 2ND TOE DURATION: 12/26/2023, 12/24/2499 CONTEXT: ARTERIAL, DIABETIC THE PATIENT IS AN 84 YO MALE WITH PMH SEVERE PERIPHERAL ARTERY DISEASE, DMT2, HTN, HLD, AFIB ON XARELTO, TIA, CHF RETURNS TO WOUND CLINIC FOR FOLLOW UP OF A HERNANDEZ 3 DIABETIC ULCER LEFT HEEL. HE PRESENTS TODAY WITH A NEW ULCER ON THE TIP OF HIS 2ND RIGHT TOE. THE PATIENT IS CURRENTLY RECEIVING DRESSING CHANGES WITH SILVER COLLAGEN WITH HEEL PROTECTORS AT NIGHT AND A DEFENDER BOOT FOR PRESSURE OFFLOADING. THE PATIENT IS CURRENTLY UNDERGOING HYPERBARIC OXYGEN THERAPY AND HAS RECEIVED 30 TREATMENTS SO FAR WHICH HE HAS TOLERATED WITHOUT ANY DIFFICULTY HOWEVER TREATMENT WAS INTERRUPTED FOR 1 WEEK WHILE AWAITING FOR APPROVAL FROM INSURANCE FOR ADDITIONAL TREATMENTS. HE HAD FOLLOW UP WITH VASCULAR WHO ADVISED NO SURGICAL INTERVENTION DUE TO RISKS > BENEFITS. THE PATIENT DENIES FEVER OR CHILLS AND REPORTS A GOOD APPETITE AND GOOD CONTROL OF BLOOD SUGARS. HE DID SUSTAIN A FALL LAST WEEK WITH INJURY TO HIS RIGHT CHEST. XRAY DID NOT SHOW ANY FRACTURE OR PNEUMOTHORAX AND HIS PAIN IS IMPROVING AND HE IS NOT HAVING SHORTNESS OF BREATH. THE PATIENT IS TAKING PROTEIN SUPPLEMENTS. THE PATIENT DENIES HAVING ANY OTHER RECENT CHANGES IN HIS OVERALL HEALTH. PATIENT WAS SCHEDULED TODAY FOR HBO BUT WAS SWITCHED TO PROVIDER SCHEDULE DUE TO NEW WOUND ON HIS 2ND RIGHT TOE. HIS OTHER WOUNDS WERE NOT DEBRIDED TODAY HE IS DUE FOR REGULAR VISIT ON FRIDAY. THE PATIENT IS FOLLOWED BY DR. TORRES AND COMPLETED DALBOVANCIN AND HAS RECENTLY COMPLETED A PROLONGED COURSE OF DOXYCYCLINE. LABS 12/24/24: CULTURE PENDING 12/24/24: XRAY 2ND TOE CONCERNING FOR OSTEOMYELITIS INVOLVING 2ND DISTAL PHALANGEAL TUFT WITH SHADY RANULFO Wilson [id number] 1940 SURROUNDING SOFT TISSUE SWELLING. NO ACUTE FRACTURE. 11/16/24: CULTURE GREW SCANT GROWTH MIXED SKIN SABA 10/09/24: ELECTROLYTES NORMAL, LFTS NORMAL, CALCIUM 10.9 10/07/24: CT SCAN: DEEP SKIN ULCERATION AT THE POSTERIOR LATERAL ASPECT OF THE HEEL TO THE DEPTH OF THE UNDERLYING CALCANEUS. NO FLUID COLLECTION OR ABSCESS IS SEEN. NO CORTICAL EROSION OR DESTRUCTION IS SEEN WITH CT TO SUGGEST OSTEOMYELITIS. 08/02/24: XRAY LEFT HEEL - NO INTERVAL CHANGE APPRECIATED. NO OSSEOUS EROSION IS IDENTIFIED. 07/23/24: CULTURE STAPHYLOCOCCUS LUGDUNENSIS, KOCURIA KARONSTINAE 04/28/24:BONE SCAN IMPRESSION READ POTENTIAL OSTEOMYELITIS INVOLVING THE RIGHT LATERAL ANKLE, RECOMMENDED MRI 04/06/24: HEMOGLOBIN A1C 5.8 03/12/24: LEFT FOOT XRAY NO BONY EROSIONS TO SUGGEST OSTEOMYELITIS. DISRUPTED ARTHORDESIS SCREW. 02/20/24: WBC 9.3, HGB 11.5, HCT 35.5, MCH 89.4, EOS 500, CR 0.96, GFR >60, GLUCOSE 110 02/13/24: CULTURE TO RIGHT HEEL KLEBSIELLA OXYTOCA AND LEFT PRETIBIAL STAPH EPIDERMIDIS 01/09/24: RIGHT FOOT XRAY WITH FRACTURE OF SCREW AND LUCENCY TO 2ND DIGIT FRACTURE VS OSTEO, REFERRED TO PODIATRY 01/09/24: CULTURE RIGHT FOOT CORYNEBACTERIUM STRIATUM, RX'D LINEZOLID. MRI C/I D/T DEFIBRILLATOR 11/28/23: CULTURE RIGHT FOOT CORYNEBACTERIUM STRIATUM 11/28/23: BILATERAL CT ANGIO, ID TO START IV ANTIBIOTICS 11/21/23 LEFT CALCANEAL XRAY NO EVIDENCE OSTEOMYELITIS, SOFT TISSUE SWELLING, SEVERE ATHEROSCLEROSIS. TIB/FIB XRAY ORTHOPEDIC HARDWARE NOTED, SEVERE ATHEROSCLEROTIC VASCULAR CALCIFICATIONS 11/21/23 ARTERIAL US DAMPENED WAVEFORMS BILATERALLY WITHIN INFRAGENICULATE ARTERIES IN ADDITION TO HEAVILY CALCIFIED VESSELS. FOCAL HEMODYNAMICALLY SIGNIFICANT STENOSIS AT LEVEL OF POPLITEAL ARTERIES CANNOT BE EXCLUDED. IF FURTHER CHARACTERIZATION WARRANTED TO EVALUATE FOR THERAPEUTIC INTERVENTION, CTA WITH B/L LOWER EXTREMITY RUNOFF RECOMMENDED 11/14/23 GUILLE: PAD, NOTES REQUESTED FROM VASCULAR 11/12/23 CULTURE POS FOR PSEUDOMONAS, E COLI, K PNEUMONIA PER PT LAST A1C W/IN 2 MOS WNL MEDICAL HISTORY THIS INFORMATION WAS OBTAINED FROM THE CHART, PATIENT. PATIENT HAS A MEDICAL HISTORY OF: ARTHRITIS TYPE II DIABETES HEART MURMUR HYPERTENSION MEMORY LOSS (SHORT TERM) TRANSIENT ISCHEMIC ATTACK (TIA) - 10/06/2023 PAD LOWER EXTREMITY EDEMA ANEMIA CHRONIC CHF EXERTIONAL DYSPNEA INSOMNIA LUMBAR REGION WITH NEUROGENIC CLAUDICATION VENTRICULAR TACHYCARDIA (ICD IMPLANTED (12/2022)) ISCHEMIC CARDIOMYOPATHY GASTROESOPHAGEAL REFLUX DISEASE IRON DEFICIENCY B12 DEFICIENCY ADHD RANULFO CARUSO [id number] 1940 BASAL CELL CARCINOMA (NOSE) ATRIAL FIBRILLATION OBSTRUCTIVE SLEEP APNEA DIVERTICULITIS DYSLIPIDEMIA MYOCARDIAL INFARCTION (SC) (09/2022) ADDITIONAL INFORMATION DOES PATIENT HAVE A HISTORY OF CANCER? YES? COMPLETE ALL QUESTIONS.: YES LOCATION OF CANCER: SKIN (NOSE) SURGICAL HISTORY THIS INFORMATION WAS OBTAINED FROM THE CHART, PATIENT. PATIENT HAS A SURGICAL HISTORY OF: CORONARY ARTERY BYPASS GRAFT (CABG)- CARDIAC SURGERY- CARDIAC VALVE REPLACEMENT- CARDIAC VALVE SURGERY- CATARACT SURGERY- 02/27/2022 (LEFT) CATARACT SURGERY- 03/20/2022 (RIGHT) HIP REPLACEMENT, TOTAL JOINT REPLACEMENT- 12/17/2021 (RIGHT) RECONSTRUCTION OF BOTH FEET- (ARTIFICIAL ANKLE OF LEFT FOOT) TOOTH EXTRACTION AND IMPLANTS- PROSTATE SURGERY- TONSILLECTOMY AND ADENOIDECTOMY- (89 (< AGE 12)) VASECTOMY- OBJECTIVE VITALS HEIGHT/LENGTH: 77 IN (195.58 CM), WEIGHT: 199.7 LBS (90.77 KGS), BMI: 23.7, TEMPERATURE: 97.9 ?F (36.61 ?C), PULSE: 71 BPM, RESPIRATORY RATE: 16 BREATHS/MIN, BLOOD PRESSURE: 112/69 MMHG, CAPILLARY BLOOD GLUCOSE: 122 MG/DL, PULSE OXIMETRY: 99 %. GENERAL NOTES VITALS FROM HBOT POST TREATMENT PHYSICAL EXAM CONSTITUTIONAL: GENERALIZED WEAKNESS. IN NO APPARENT DISTRESS. GOOD ATTENTION TO HYGIENE AND BODY HABITS. ALERT AND ORIENTED X 3. WELL NOURISHED. VITAL SIGNS REVIEWED AND NOTED. BLOOD PRESSURE NORMAL. PULSE RATE AND RHYTHM REGULAR. AFEBRILE. WEIGHT WNL. FRAIL ELDERLY. AMBULATES AND IS ABLE TO CHANGE POSITION WITHOUT ASSISTANCE. ALERT AND ORIENTED X 3. RESPIRATORY: EVEN RESPIRATIONS WITHOUT USE OF ACCESSORY MUSCLES. NO INTERCOASTAL RETRACTIONS NOTED. EVEN AND NON LABORED RESPIRATION. CARDIOVASCULAR: SEE LOWER EXTREMITY ASSESSMENT WHEN APPLICABLE. THERE IS NO PERIPHERAL EDEMA, CYANOSIS OR PALLOR. EXTREMITIES ARE WARM AND WELL PERFUSED. CAPILLARY REFILL IS LESS THAN 2 SECONDS. MUSCULOSKELETAL: 2ND RIGHT TOE ERYTHEMATOUS AND WARM TO TOUCH. INTEGUMENTARY (HAIR, SKIN): RANULFO CARUSO [id number] 1940 SEE WOUND DESCRIPTION. NEUROLOGICAL: DECREASED LOWER EXTREMITY SENSATION. PSYCHIATRIC: ORIENTATION TO TIME, PLACE AND PERSON: NORMAL AFFECT WITH NORMAL THOUGHT PATTERN. MOOD AND AFFECT: NORMAL AFFECT WITH NORMAL THOUGHT PATTERN. GENERAL NOTES SEVERE VASCULAR DISEASE ADDITIONAL INFORMATION THE PATIENT'S POTENTIAL TO HEAL IS: FAIR. WOUND ASSESSMENT(S) WOUND #6 LEFT HEEL IS A CHRONIC HERNANDEZ GRADE 3 DIABETIC ULCER ACQUIRED ON 12/20/2023 AND HAS RECEIVED A STATUS OF NOT HEALED. INITIAL WOUND ENCOUNTER MEASUREMENTS ARE 1.4CM LENGTH X 1.5CM WIDTH X 0.3 CM DEPTH, WITH AN AREA OF 2.1 SQ CM AND A VOLUME OF 0.63 CUBIC CM.INITIAL WOUND ENCOUNTER PREVIOUS MEASUREMENTS FROM 12/22/2024 ARE 1.4CM LENGTH X 1.5CM WIDTH X 0.3CM DEPTH, WITH AN AREA OF 2.1 SQ CM AND A VOLUME OF 0.63 CUBIC CM. TENDON AND ADIPOSE ARE EXPOSED. NO TUNNELING HAS BEEN NOTED. NO SINUS TRACT HAS BEEN NOTED. NO UNDERMINING HAS BEEN NOTED. THERE IS A MODERATE AMOUNT OF SEROSANGUINEOUS DRAINAGE NOTED WHICH HAS NO ODOR. THE PATIENT REPORTS A WOUND PAIN OF LEVEL 0/10. THE WOUND MARGIN IS UNATTACHED WOUND BED HAS YES, BRIGHT RED, PINK, FIRM, GRANULATION, YES SLOUGH, NO ESCHAR, YES EPITHELIALIZATION. THE PERIWOUND SKIN EXHIBITED EDEMA, ECCHYMOSIS AND ERYTHEMA. THE PERIWOUND SKIN DID NOT EXHIBIT BRAWNY INDURATION, EXCORIATION, INDURATION, CALLUS, CREPITUS, FLUCTUANCE, RASH, MACERATION, ATROPHIE DUSTIN, CYANOSIS, HEMOSIDEROSIS, PALLOR AND RUBOR. THE PERIWOUND SKIN WAS NOT FRIABLE, DRY/SCALY AND MOIST. THE TEMPERATURE OF THE PERIWOUND SKIN IS WNL. PERIWOUND SKIN DOES NOT EXHIBIT SIGNS OR SYMPTOMS OF INFECTION. LOCAL PULSE IS DOPPLER. GENERAL NOTES MEASUREMENTS ROLLED OVER FROM 2 DAYS AGO. ADDITIONAL INFORMATION OTHER DEVITALIZED TISSUE PRESENT: BIOFILM WOUND #11 RIGHT HEEL IS AN ACUTE HERNANDEZ GRADE 1 DIABETIC ULCER ACQUIRED ON 12/22/2024 AND HAS RECEIVED A STATUS OF NOT HEALED. INITIAL WOUND ENCOUNTER MEASUREMENTS ARE 0.2CM LENGTH X 0.2CM WIDTH X 0.1 CM DEPTH, WITH AN AREA OF 0.04 SQ CM AND A VOLUME OF 0.004 CUBIC CM.INITIAL WOUND ENCOUNTER PREVIOUS MEASUREMENTS FROM 12/22/2024 ARE 0.2CM LENGTH X 0.2CM WIDTH X 0.1CM DEPTH, WITH AN AREA OF 0.04 SQ CM AND A VOLUME OF 0.004 CUBIC CM. ASSESSMENT OF EXPOSED STRUCTURES LIMITED TO THE BREAKDOWN OF SKIN. NO TUNNELING HAS BEEN NOTED. NO SINUS TRACT HAS BEEN NOTED. NO UNDERMINING HAS BEEN NOTED. THERE IS A SMALL AMOUNT OF SEROUS DRAINAGE NOTED WHICH HAS NO ODOR. THE PATIENT REPORTS A WOUND PAIN OF LEVEL 0/10. THE WOUND MARGIN IS ATTACHED WOUND BED HAS NO, GRANULATION, NO SLOUGH, NO ESCHAR, NO EPITHELIALIZATION. THE PERIWOUND SKIN EXHIBITED CALLUS, ECCHYMOSIS AND ERYTHEMA. THE PERIWOUND SKIN DID NOT EXHIBIT BRAWNY INDURATION, EDEMA, EXCORIATION, INDURATION, CREPITUS, FLUCTUANCE, RASH, MACERATION, ATROPHIE DUSTIN, CYANOSIS, HEMOSIDEROSIS, PALLOR AND RUBOR. THE PERIWOUND SKIN WAS NOT FRIABLE, DRY/SCALY AND MOIST. THE TEMPERATURE OF THE PERIWOUND SKIN IS WNL. PERIWOUND SKIN DOES NOT EXHIBIT SIGNS OR SYMPTOMS OF INFECTION. LOCAL PULSE IS DOPPLER. GENERAL NOTES MEASUREMENTS ROLLED OVER FROM 2 DAYS AGO. ADDITIONAL INFORMATION OTHER DEVITALIZED TISSUE PRESENT: BIOFILM WOUND #12 RIGHT TOE - SECOND IS AN ACUTE HERNANDEZ GRADE 2 DIABETIC ULCER ACQUIRED ON 12/24/2024 AND HAS RECEIVED A STATUS OF NOT HEALED. INITIAL WOUND ENCOUNTER MEASUREMENTS ARE 0.5CM LENGTH X 1.1CM WIDTH X 0.1 CM DEPTH, WITH AN AREA OF 0.55 SQ CM AND A VOLUME OF 0.055 CUBIC CM. BONE AND ADIPOSE ARE EXPOSED. NO TUNNELING HAS BEEN NOTED. NO SINUS TRACT HAS BEEN NOTED. NO UNDERMINING HAS BEEN NOTED. THERE IS A SMALL AMOUNT OF SEROSANGUINEOUS DRAINAGE NOTED WHICH HAS NO ODOR. THE RANULFO CARUSO [id number] 1940 PATIENT REPORTS A WOUND PAIN OF LEVEL 0/10. THE WOUND MARGIN IS UNATTACHED WOUND BED HAS NO, GRANULATION, YES SLOUGH, YES ESCHAR, NO EPITHELIALIZATION. THE PERIWOUND SKIN DID NOT EXHIBIT BRAWNY INDURATION, EDEMA, EXCORIATION, INDURATION, CALLUS, CREPITUS, FLUCTUANCE, RASH AND MACERATION. THE PERIWOUND SKIN WAS NOT FRIABLE, DRY/SCALY AND MOIST. THE TEMPERATURE OF THE PERIWOUND SKIN IS WNL. LOCAL PULSE IS PALPABLE. ADDITIONAL INFORMATION OTHER DEVITALIZED TISSUE PRESENT: BIOFILM ASSESSMENT ACTIVE PROBLEMS ICD-10 (ENCOUNTER DIAGNOSIS) L97.428 - NON-PRESSURE CHRONIC ULCER OF LEFT HEEL AND MIDFOOT WITH OTHER SPECIFIED SEVERITY (ENCOUNTER DIAGNOSIS) E11.621 - TYPE 2 DIABETES MELLITUS WITH FOOT ULCER (ENCOUNTER DIAGNOSIS) E11.42 - TYPE 2 DIABETES MELLITUS WITH DIABETIC POLYNEUROPATHY (ENCOUNTER DIAGNOSIS) I73.9 - PERIPHERAL VASCULAR DISEASE, UNSPECIFIED (ENCOUNTER DIAGNOSIS) L97.411 - NON-PRESSURE CHRONIC ULCER OF RIGHT HEEL AND MIDFOOT LIMITED TO BREAKDOWN OF SKIN (ENCOUNTER DIAGNOSIS) M86.171 - OTHER ACUTE OSTEOMYELITIS, RIGHT ANKLE AND FOOT PROCEDURES WOUND #12 WOUND #12 (DIABETIC ULCER) IS LOCATED ON THE RIGHT TOE - SECOND. A SKIN/SUBCUTANEOUS TISSUE LEVEL SURGICAL DEBRIDEMENT WITH A TOTAL AREA DEBRIDED OF 0.55 SQ CM. WAS PERFORMED BY SUMMER PEDRO PA-C. SUBCUTANEOUS WAS REMOVED ALONG WITH DEVITALIZED TISSUE: BIOFILM, EXUDATE AND SLOUGH. THE FOLLOWING INSTRUMENT(S) WERE USED: CURETTE, FORCEPS AND NIPPERS. PAIN CONTROL WAS ACHIEVED USING EMLA LIDOCAINE/PRILOCAINE 2.5%/2.5%. A TIME OUT WAS CONDUCTED PRIOR TO THE START OF THE PROCEDURE. A MINIMAL AMOUNT OF BLEEDING WAS CONTROLLED WITH PRESSURE. THE PROCEDURE WAS TOLERATED WELL WITH A PAIN LEVEL OF 0 THROUGHOUT AND A PAIN LEVEL OF 0 FOLLOWING THE PROCEDURE. POST DEBRIDEMENT MEASUREMENTS: 0.5CM LENGTH X 1.1CM WIDTH X 0.2CM DEPTH; WITH AN AREA OF 0.55 SQ CM AND A VOLUME OF 0.11 CUBIC CM. ADDITIONAL INFORMATION MUSCLE FASCIA OR BONE REMOVED AND SENT TO PATHOLOGY?: NO PLAN WOUND ORDERS: WOUND #6 LEFT HEEL HAND HYGIENE HAND HYGIENE - WASH HANDS BEFORE AND AFTER WOUND CARE. CALL THE WOUND CENTER AT [phone] IF YOU HAVE SIGNS OR SYMPTOMS OF INFECTION, FEVER CHILLS OR SHAKES, INCREASED DRAINAGE, INCREASED ODOR OR UNUSUAL REDNESS. AFTER WOUND CENTER HOURS PLEASE NOTIFY YOUR PCP OR GO TO THE EMERGENCY ROOM. CLEANSER CLEANSE WOUND WITH NORMAL SALINE - IN CLINIC. CLEANSE WOUND AND VIVIAN WOUND WITH A NON-CYTOTOXIC WOUND CLEANSER. - VASHE CLEANSER AT HOME. MAY SHOWER, LEAVE WOUND DRESSING INTACT. COVER WOUND DRESSING WITH A WATERPROOF BARRIER. KEEP DRESSING DRY. NO BATHS PLEASE. RANULFO CARUSO [id number] 1940 DRESSING ORDERS APPLY DRESSING(S) AND SECURE WITH: - PURACOL PLUS AG, MOISTENED WITH NORMAL SALINE OR DISTILLED WATER. OPTIFOAM SECURED WITH TAPE. DRESSING CHANGE FREQUENCY CHANGE DRESSING EVERY OTHER DAY. - OR MORE FREQUENTLY FOR DRAINAGE CONTROL. CHANGE DRESSING IF IT BECOMES SOILED OR WET. WOUND #11 RIGHT HEEL HAND HYGIENE HAND HYGIENE - WASH HANDS BEFORE AND AFTER WOUND CARE. CALL THE WOUND CENTER AT [phone] IF YOU HAVE SIGNS OR SYMPTOMS OF INFECTION, FEVER CHILLS OR SHAKES, INCREASED DRAINAGE, INCREASED ODOR OR UNUSUAL REDNESS. AFTER WOUND CENTER HOURS PLEASE NOTIFY YOUR PCP OR GO TO THE EMERGENCY ROOM. CLEANSER CLEANSE WOUND WITH NORMAL SALINE - IN CLINIC. CLEANSE WOUND AND VIVIAN WOUND WITH A NON-CYTOTOXIC WOUND CLEANSER. - VASHE CLEANSER AT HOME. MAY SHOWER, LEAVE WOUND DRESSING INTACT. COVER WOUND DRESSING WITH A WATERPROOF BARRIER. KEEP DRESSING DRY. NO BATHS PLEASE. DRESSING ORDERS APPLY DRESSING(S) AND SECURE WITH: - PURACOL PLUS AG, MOISTENED WITH NORMAL SALINE OR DISTILLED WATER. OPTIFOAM SECURED WITH TAPE. DRESSING CHANGE FREQUENCY CHANGE DRESSING EVERY OTHER DAY. - OR MORE FREQUENTLY FOR DRAINAGE CONTROL. CHANGE DRESSING IF IT BECOMES SOILED OR WET. WOUND #12 RIGHT TOE - SECOND DRESSING ORDERS APPLY DRESSING(S) AND SECURE WITH: - ADAPTIC, HYDROFERA BLUE, OPTIFOAM, HYPAFIX DRESSING CHANGE FREQUENCY CHANGE DRESSING EVERY OTHER DAY. CHANGE DRESSING IF IT BECOMES SOILED OR WET. ADDITIONAL ORDERS: PROCEDURE / ANESTHETIC 5% TOPICAL LIDOCAINE TO WOUND BED PRIOR TO PROCEDURE, IN CLINIC ONLY. COMPRESSION/EDEMA CONTROL ELEVATE LEG(S) ABOVE THE LEVEL OF THE HEART MUCH POSSIBLE. AVOID STANDING IN ONE POSITION FOR MORE THAN 10 MINUTES. AVOID SITTING WITH LEGS DOWN. DO NOT CROSS LEGS WHEN SITTING. OFF-LOADING / PRESSURE RELIEF TOTAL NON-WEIGHT BEARING USING: - EHOB BOOTS TO BOTH HEELS WHILE IN BED OR RESTING IN A RECLINED POSITION. USE/WEAR WHEN WALKING: - POST-OP SHOE DIETARY TAKE VITAMIN C 1000MG BY MOUTH DAILY. TAKE ZINC 25MG BY MOUTH DAILY. INCREASE THE PROTEIN IN YOUR DIET. - SUPPLEMENT WITH DIABETIC FRIENDLY PROTEIN SHAKES IN BETWEEN REGULAR MEALS. ACTIVITY OTHER ORDER: - DECREASE ACTIVITY MUCH POSSIBLE WHILE WE ARE CLOSELY MONITORING THE WOUND ON YOUR HEEL. FOLLOW-UP APPOINTMENTS RETURN APPOINTMENT 1 WEEK OTHER ORDERS: - START USING A WALKER AND A POST-OP SHOE WHEN YOU GET HOME. SCRIBING ATTESTATION I ATTEST, THE NURSE, THAT I SCRIBED THESE ORDERS FOR THE WOUND CARE PROVIDER. PROVIDER REVIEW AND ATTESTATION: REVIEWED AND EVALUATED LABS. REVIEWED HOSPITAL RECORDS. DISCUSSED THE PLAN OF CARE @ BEDSIDE WITH - THE PATIENT I AGREE AND ATTEST TO THE ABOVE INFORMATION PROVIDED FROM OTHER LICENSED PROFESSIONALS. HBO2 THERAPY-DIABETIC WOUND(S) LOWER EXTREMITY INDICATION: IF APPROPRIATE FOR TREATMENT, BEGIN HBO THERAPY PER PROTOCOL. TREATMENT PROTOCOL: 2.0 YARITZA X 90 MINUTES WITH 100% OXYGEN. OFFLOAD EXTREMITY, CONTINUE WOUND CARE, MANAGE BLOOD SUGAR. RANULFO CARUSO [id number] 1940 TOTAL # OF HBO TREATMENTS: 30 TREATMENTS AND REEVALUATE. - +10, TOTAL 40 TREATMENTS ASCENT TIME: 1.0 PSI/MINUTE MAY ADVANCE TO 1.5PSI/MINUTE TOLERATED. DESCENT TIME: 1.0 PSI/MINUTE MAY ADVANCE TO 1.5PSI/MINUTE TOLERATED. FOR DIABETIC PATIENTS-FINGER STICK BLOOD GLUCOSE PRE- AND POST- HBO TREATMENT. PRE AND POST VITAL SIGNS FOR EACH TREATMENT. ANCILLARY SERVICES: LABORATORY: CULTURE WOUND - WE TOOK A CULTURE OF YOUR TOE AND WE HAVE PRESCRIBED ANTIBIOTICS TO AGRICULTURAL CONSULTANT AND START TAKING RADIOLOGY: X-RAY, TOES - AN XRAY OF YOUR 2ND RIGHT TOE WAS ORDERED. PLAN OF CARE: 01. ENSURE/ESTABLISH OPTIMAL BLOOD FLOW : - COMPLETE LOWER EXTREMITY ASSESSMENT STATUS: CONTINUED DATE: 12/22/2024 - PERFORM NON-INVASIVE VASCULAR TESTING (I.E. GUILLE) AND DOCUMENT FINDINGS. CONSIDER REPEATING WHEN WOUND HEALING <40% AFTER 30 DAYS OF WOUND CARE. STATUS: COMPLETED DATE: 11/14/2023 - ORDER VASCULAR CONSULT FOR EVALUATION/TREATMENT AND/OR NON-INVASIVE VASCULAR TESTING. STATUS: COMPLETED DATE: 05/18/2024 02. ASSESS FOR/TREAT INFECTION : - EVALUATE FOR SIGNS AND SYMPTOMS OF INFECTION AND DOCUMENT FINDINGS. STATUS: CONTINUED DATE: 12/22/2024 03. DEBRIDE WEEKLY OR MORE OFTEN PRN : - EVALUATE PATIENT IN CENTER WEEKLY TO ASSESS WOUND BED AND MARGINS FOR NEED FOR DEBRIDEMENT. STATUS: CONTINUED DATE: 12/22/2024 - DEBRIDEMENT BY ANY METHOD TO REMOVE DEVITALIZED/NECROTIC TISSUE TO PROMOTE HEALING AND PREVENT FURTHER COMPLICATIONS. GOAL IS TO STIMULATE AND/OR MAINTAIN ACUTE PHASE OF WOUND HEALING BY REDUCING BACTERIAL BURDEN AND DEVITALIZED/NON-VIABLE TISSUE. STATUS: CONTINUED DATE: 12/22/2024 04. OPTIMIZE GLUCOSE CONTROL AND NUTRITION : - ORDER/REVIEW PERTINENT LABS TO EVALUATE RENAL FUNCTION, GLUCOSE CONTROL, AND NUTRITIONAL STATUS. STATUS: CONTINUED DATE: 12/22/2024 05. OFFLOADING PLAN : - EVALUATE PLAN FOR OFFLOADING STATUS: CONTINUED DATE: 12/22/2024 - ADVISE PATIENT TO OFFLOAD THE FOOT ULCER. (I.E. HALF SHOE, SURGICAL SHOE, INSERT, CUSTOM SHOE, FELT AND FOAM, CAM WALKER, MULTIPODUS SPLINT, TOTAL CONTACT CAST, BI-VALVE CAST, POSTERIOR SPLINT). STATUS: CONTINUED DATE: 12/22/2024 06. OPTIMIZE HOST FACTORS: - ASSESS AND REVIEW PATIENT HISTORY FOR WOUND ETIOLOGY, CO-MORBID CONDITIONS, MEDICATION REGIME, AND SMOKING HISTORY. STATUS: CONTINUED DATE: 12/22/2024 07. DRESSING SELECTION : - EVALUATE FOR DRESSING-RELATED FACTORS, SUCH AVAILABILITY, WEAR TIME, ADAPTABILITY AND USE TO BETTER OPTIMIZE WOUND HEALING AND PATIENT COMPLIANCE. STATUS: CONTINUED DATE: 12/22/2024 - CHOOSE TOPICAL TREATMENTS AND/OR DRESSING BASED ON WOUND TYPE AND APPEARANCE, PERIWOUND SKIN CONDITION, WOUND SIZE AND DEPTH, ANATOMIC LOCATION, VOLUME OF EXUDATE, EDEMA IN THE LOWER EXTREMITIES, AND RISK OR PRESENCE OF INFECTION. RANULFO CARUSO [id number] 1940 STATUS: CONTINUED DATE: 12/22/2024 08. ADVANCED MODALITIES : - SET TREATMENT GOALS ACCORDING TO PATIENT AND/OR CAREGIVER?S ABILITY/ COMPLIANCE. STATUS: CONTINUED DATE: 12/22/2024 - RE-EVALUATE PLAN OF CARE IF NO EVIDENCE OF HEALING (40% IN 4 WEEKS). STATUS: CONTINUED DATE: 12/22/2024 09. FALL PREVENTION : - ENCOURAGE INSTALLATION AND USE GRAB BARS IN BATHROOMS. STATUS: CONTINUED DATE: 12/22/2024 10. PAIN MANAGEMENT : - COMPLETE PAIN ASSESSMENT STATUS: CONTINUED DATE: 12/22/2024 - PREPARE PATIENT TO SET REASONABLE EXPECTATIONS PRIOR TO PROCEDURE. STATUS: CONTINUED DATE: 12/22/2024 11. MEASURABLE GOALS FOR WOUND HEALING AND/OR HYPERBARIC OXYGEN THERAPY : - DECREASE WOUND DIMENSIONS STATUS: CONTINUED DATE: 12/22/2024 - WOUND CLOSURE STATUS: CONTINUED DATE: 12/22/2024 12. DURATION/FREQUENCY OF WOUND CARE VISITS : - 1X WEEKLY FOR 30 DAYS STATUS: CONTINUED DATE: 12/22/2024 PLAN XRAY PENDING, CONCERN FOR FRACTURE OR OSTEOMYELITIS CULTURE PENDING START DOXYCYCLINE DRESSING WITH ADAPTIC, HYDROFERA BLUE, OPTIFOAM REASSESS PLANNED ON FRIDAY WITH DR ENCISO 12/27/24 ADDENDUM: XRAY W/ LIKELY OSTEO, CULTURE PENDING CONTINUE PLAN FOR TREATMENT IN WOUND CARE 12/27/24, LIKELY REFERRAL TO ID AND ORTHO AT VISIT ELECTRONIC SIGNATURE(S) SIGNED BY: DATE: SUMMER PEDRO PA-C 12/27/2024 07:59:24 (PT) ENTERED BY: SUMMER PEDRO PA-C ON 12/27/2024 07:59:01 (PT) RANULFO CARUSO [id number] 1940
== END ==
PROVIDERS: Family Provider Family Medicine; PCP Family Medicine; Referring Provider Family Medicine; Visit Provider Physician Assistant
DX: E11.621 Type 2 diabetes mellitus with foot ulcer (principal); L97.422 Non-pressure chronic ulcer of left heel and midfoot with fat layer exposed; L97.411 Non-pressure chronic ulcer of right heel and midfoot limited to breakdown of skin; L97.516 Non-pressure chronic ulcer of other part of right foot with bone involvement without evidence of necrosis; I73.9 Peripheral vascular disease, unspecified; M86.171 Other acute osteomyelitis, right ankle and foot; L53.8 Other specified erythematous conditions; L84 Corns and callosities; L97.428 Non-pressure chronic ulcer of left heel and midfoot with other specified severity; E11.42 Type 2 diabetes mellitus with diabetic polyneuropathy
CPT/HCPCS: 11042; 87070; 87075; 87077; 87186; 87205; 99183; 99213; G0277

== ENCOUNTER → 2024-12-24 15:32 | Outpatient (CLI) | payer OTHER, SELFPAY ==
--- NOTE | 2024-12-24 15:34 | DI.RAD.S_ITS ---
PROCEDURE: XR TOE RT MIN 2V INDICATIONS: tip of Right 2nd toe for fracture and possible osteomylitis TECHNIQUE: 3 views of the right 2nd toe(s) acquired. COMPARISON: None. FINDINGS: Bones: Postsurgical changes are noted in midfoot and hindfoot. There is suggestion of fractured surgical screw extending from proximal 1st metatarsal shaft to the 2nd metatarsal shaft . Erosion involving 2nd distal phalangeal tuft is seen. No acute fracture or dislocation is seen. No suspicious bony lesions. Soft tissues: Soft tissue swelling surrounding distal portion of 2nd toe is seen. No suspicious soft tissue densities. IMPRESSION: 1. Finding is concerning for osteomyelitis involving 2nd distal phalangeal tuft with surrounding soft tissue swelling. 2. No acute fracture or dislocation. Postsurgical changes in midfoot and hindfoot with suggestion of failed hardware involving surgical screw extending from 1st metatarsal shaft to 2nd metatarsal shaft. Dictated by: Mian Garcia M.D. on 12/24/2024 at 16:05 Approved by: Mian Garcia M.D. on 12/24/2024 at 16:07
== END ==
PROVIDERS: Family Provider Family Medicine; PCP Family Medicine; Referring Provider Physician Assistant; Visit Provider Physician Assistant
DX: L08.9 Local infection of the skin and subcutaneous tissue, unspecified (principal); Z96.7 Presence of other bone and tendon implants
CPT/HCPCS: 73660; 87070; 87077; 87186; 87205

== ENCOUNTER → 2024-12-27 11:24 | Outpatient (CLI) | payer OTHER, SELFPAY | PROVIDERS: Family Provider Family Medicine; PCP Family Medicine; Referring Provider Family Medicine; Visit Provider Surgery | DX: L97.428 Non-pressure chronic ulcer of left heel and midfoot with other specified severity (principal); E11.621 Type 2 diabetes mellitus with foot ulcer; E11.42 Type 2 diabetes mellitus with diabetic polyneuropathy; I73.9 Peripheral vascular disease, unspecified; L97.411 Non-pressure chronic ulcer of right heel and midfoot limited to breakdown of skin; M86.171 Other acute osteomyelitis, right ankle and foot | CPT/HCPCS: 99183; G0277 ==

== ENCOUNTER → 2024-12-28 16:16 | Outpatient (CLI) | payer OTHER, SELFPAY | PROVIDERS: Family Provider Family Medicine; PCP Family Medicine; Referring Provider Family Medicine; Visit Provider Surgery | DX: L97.428 Non-pressure chronic ulcer of left heel and midfoot with other specified severity (principal); E11.621 Type 2 diabetes mellitus with foot ulcer; E11.42 Type 2 diabetes mellitus with diabetic polyneuropathy; I73.9 Peripheral vascular disease, unspecified; L97.411 Non-pressure chronic ulcer of right heel and midfoot limited to breakdown of skin; M86.171 Other acute osteomyelitis, right ankle and foot | CPT/HCPCS: 99183; G0277 ==

== ENCOUNTER → 2024-12-29 15:38 | Outpatient (CLI) | payer OTHER, SELFPAY ==
--- NOTE | 2024-12-29 | OV.WND_ITS ---
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 PRE- TREATMENT VITAL SIGNS WERE: TIME VITALS TAKEN: 11:50, BLOOD PRESSURE: 125/80 MMHG, PULSE: 60 BPM, RESPIRATORY RATE: 16 BREATHS/MIN, TEMPERATURE: 97.5 ?F, CAPILLARY BLOOD GLUCOSE: 158 MG/DL, PULSE OXIMETRY: 98 %. THE TREATMENT PROTOCOL PROVIDED WAS 2.0 YARITZA X 90 MINUTES W/ 100% OXYGEN AND NO AIR BREAKS. THE DIVE RATE DOWN WAS 1.0 PSI / MINUTE. THE DIVE RATE UP WAS 1.0 PSI / MINUTE. THE TOTAL TREATMENT LENGTH WAS 120 MINUTES. POST-TREATMENT VITAL SIGNS WERE: TIME VITALS TAKEN: 14:12, BLOOD PRESSURE: 135/85 MMHG, PULSE: 68 BPM, RESPIRATORY RATE: 16 BREATHS/MIN, TEMPERATURE: 97.3 ?F, CAPILLARY BLOOD GLUCOSE: 128 MG/DL, PULSE OXIMETRY: 100 %. NO ADVERSE EVENTS WERE ENCOUNTERED. PHYSICIAN/SMOKE JUMPER SUPERVISOR NOTES: THE PATIENT TOLERATED TREATMENT WITHOUT DIFFICULTY. I WAS PRESENT AND IMMEDIATELY AVAILABLE THROUGHOUT THE TREATMENT. PLAN TO CONTINUE HYPERBARIC OXYGEN THERAPY. GENERAL NOTES TREATMENT NAME: [id number] PT ARRIVED IN STABLE CONDITION; PRE-TREATMENT CHECKLIST COMPLETED WITHOUT COMPLICATIONS. PT COMPLETED TREATMENT WITHOUT COMPLAINT, PT LEFT IN STABLE CONDITION. ADDITIONAL INFORMATION RANULFO CARUSO [id number] 1940 PHYSICIAN WAS READILY AVAILABLE DURING THE ENTIRE TREATMENT.: YES ELECTRONIC SIGNATURE(S) SIGNED BY: DATE: WESLEY ENCISO MD 12/29/2024 15:50:59 (PT) ENTERED BY: WESLEY ENCISO MD ON 12/29/2024 15:49:09 (PT) RANULFO CARUSO [id number] 1940
== END ==
PROVIDERS: Family Provider Family Medicine; PCP Family Medicine; Referring Provider Family Medicine; Visit Provider Surgery
DX: L97.428 Non-pressure chronic ulcer of left heel and midfoot with other specified severity (principal); E11.621 Type 2 diabetes mellitus with foot ulcer; E11.42 Type 2 diabetes mellitus with diabetic polyneuropathy; I73.9 Peripheral vascular disease, unspecified; L97.411 Non-pressure chronic ulcer of right heel and midfoot limited to breakdown of skin; M86.171 Other acute osteomyelitis, right ankle and foot
CPT/HCPCS: 99183; G0277

== ENCOUNTER → 2024-12-30 14:02 | Outpatient (CLI) | payer OTHER, SELFPAY ==
--- NOTE | 2024-12-30 | OV.WND_ITS ---
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 PRE- TREATMENT VITAL SIGNS WERE: TIME VITALS TAKEN: 11:50, BLOOD PRESSURE: 113/75 MMHG, PULSE: 71 BPM, RESPIRATORY RATE: 16 BREATHS/MIN, TEMPERATURE: 97.3 ?F, CAPILLARY BLOOD GLUCOSE: 144 MG/DL, PULSE OXIMETRY: 97 %. THE TREATMENT PROTOCOL PROVIDED WAS 2.0 YARITZA X 90 MINUTES W/ 100% OXYGEN AND NO AIR BREAKS. THE DIVE RATE DOWN WAS 1.0 PSI / MINUTE. THE DIVE RATE UP WAS 1.0 PSI / MINUTE. THE TOTAL TREATMENT LENGTH WAS 120 MINUTES. POST-TREATMENT VITAL SIGNS WERE: TIME VITALS TAKEN: 14:08, BLOOD PRESSURE: 132/86 MMHG, PULSE: 71 BPM, RESPIRATORY RATE: 16 BREATHS/MIN, TEMPERATURE: 97.5 ?F, CAPILLARY BLOOD GLUCOSE: 152 MG/DL, PULSE OXIMETRY: 100 %. NO ADVERSE EVENTS WERE ENCOUNTERED. PHYSICIAN/PARK MANAGER NOTES: THE PATIENT TOLERATED TREATMENT WITHOUT DIFFICULTY. I WAS PRESENT AND IMMEDIATELY AVAILABLE THROUGHOUT THE TREATMENT. PLAN TO CONTINUE HYPERBARIC OXYGEN THERAPY. GENERAL NOTES TREATMENT NAME: [id number] PT ARRIVED IN STABLE CONDITION; PRE-TREATMENT CHECKLIST COMPLETED WITHOUT COMPLICATIONS. PT COMPLETED TREATMENT WITHOUT COMPLAINT, PT LEFT IN STABLE CONDITION. ADDITIONAL INFORMATION RANULFO CARUSO [id number] 1940 PHYSICIAN WAS READILY AVAILABLE DURING THE ENTIRE TREATMENT.: YES ELECTRONIC SIGNATURE(S) SIGNED BY: DATE: WESLEY ENCISO MD 12/30/2024 16:18:43 (PT) ENTERED BY: WESLEY ENCISO MD ON 12/30/2024 16:11:56 (PT) RANULFO CARUSO [id number] 1940
--- NOTE | 2024-12-30 | OV.WND_ITS ---
PROGRESS NOTE DETAILS PATIENT NAME: RANULFO CARUSO PATIENT NUMBER: [id number] CLINICIAN: FAISAL PATRICK R.N. PATIENT DATE OF : 1940 PHYSICIAN / SCRAP IRON LOADER: WESLEY ENCISO PATIENT SUBJECTIVE CHIEF COMPLAINT THIS INFORMATION WAS OBTAINED FROM THE PATIENT. WOUNDS. GENERAL NOTES PT PRESENTS TO CLINIC POST HBOT. ULCERS ON BILATERAL HEELS AND RIGHT 2ND TOE. ALLERGIES CEPHALEXIN (SEVERITY: MODERATE, REACTION: VOMITING, DIARRHEA), LINEZOLID (REACTION: VOMITING, DIARRHEA), HYDROFERA BLUE READY (SEVERITY: MODERATE, REACTION: RASH) HPI THIS INFORMATION WAS OBTAINED FROM THE PATIENT. THE FOLLOWING HPI ELEMENTS WERE DOCUMENTED FOR THE PATIENT'S WOUND: LOCATION: L HEEL, R HEEL, 2ND R TOE DURATION: 12/26/2023, 12/24/24 CONTEXT: ARTERIAL, DIABETIC THE PATIENT IS AN 84 YO MALE WITH PMH SEVERE PERIPHERAL ARTERY DISEASE, DMT2, HTN, HLD, AFIB ON XARELTO, TIA, CHF RETURNS TO WOUND CLINIC FOR FOLLOW UP OF A HERNANDEZ 3 DIABETIC ULCER LEFT HEEL, ULCER RIGHT HEEL, AN ULCER RIGHT 2ND TOE. THE PATIENT IS CURRENTLY RECEIVING DRESSING CHANGES WITH SILVER COLLAGEN WITH HEEL PROTECTORS AT NIGHT AND A DEFENDER BOOT FOR PRESSURE OFFLOADING. HE HAS BEEN ON DOXYCYCLINE FOR THE PAST 4 DAYS. THE PATIENT IS CURRENTLY UNDERGOING HYPERBARIC OXYGEN THERAPY AND HAS RECEIVED 35 TREATMENTS SO FAR WHICH HE HAS TOLERATED WITHOUT ANY DIFFICULTY HOWEVER TREATMENT WAS INTERRUPTED FOR 1 WEEK WHILE AWAITING FOR APPROVAL FROM INSURANCE FOR ADDITIONAL TREATMENTS. HE HAD FOLLOW UP WITH VASCULAR WHO ADVISED NO SURGICAL INTERVENTION DUE TO RISKS > BENEFITS. THE PATIENT DENIES FEVER OR CHILLS AND REPORTS A GOOD APPETITE AND GOOD CONTROL OF BLOOD SUGARS. THE PATIENT IS TAKING PROTEIN SUPPLEMENTS. THE PATIENT DENIES HAVING ANY OTHER RECENT CHANGES IN HIS OVERALL HEALTH. ON EXAM TODAY THE ULCER OF THE LEFT HEEL HAS IMPROVED MEASUREMENTS. ULCER RIGHT 2ND TOE HAS EXPOSED DISTAL PHALANX AND MEASURES LARGER. ULCER RIGHT HEEL IS IMPROVED. THE PATIENT IS FOLLOWED BY DR. TORRES AND COMPLETED DALBOVANCIN AND HAS RECENTLY COMPLETED A PROLONGED COURSE OF DOXYCYCLINE. LABS 12/24/24: CULTURE GREW KLEBSIELLA OXYTOCA 12/24/24: X-RAY RIGHT FOOT: FINDING IS CONCERNING FOR OSTEOMYELITIS INVOLVING 2ND DISTAL PHALANGEAL TUFT WITH SURROUNDING SOFT TISSUE SWELLING. 11/16/24: CULTURE GREW SCANT GROWTH MIXED SKIN SABA 10/09/24: ELECTROLYTES NORMAL, LFTS NORMAL, CALCIUM 10.9 10/07/24: CT SCAN: DEEP SKIN ULCERATION AT THE POSTERIOR LATERAL ASPECT OF THE HEEL TO THE DEPTH OF THE UNDERLYING CALCANEUS. NO FLUID COLLECTION OR ABSCESS IS SEEN. NO CORTICAL EROSION OR DESTRUCTION IS SEEN WITH CT TO SUGGEST OSTEOMYELITIS. RANULFO CARUSO [id number] 1940 08/02/24: XRAY LEFT HEEL - NO INTERVAL CHANGE APPRECIATED. NO OSSEOUS EROSION IS IDENTIFIED. 07/23/24: CULTURE STAPHYLOCOCCUS LUGDUNENSIS, KOCURIA KISTINAE 04/28/24:BONE SCAN IMPRESSION READ POTENTIAL OSTEOMYELITIS INVOLVING THE RIGHT LATERAL ANKLE, RECOMMENDED MRI 04/06/24: HEMOGLOBIN A1C 5.8 03/12/24: LEFT FOOT XRAY NO BONY EROSIONS TO SUGGEST OSTEOMYELITIS. DISRUPTED ARTHORDESIS SCREW. 02/20/24: WBC 9.3, HGB 11.5, HCT 35.5, MCH 89.4, EOS 500, CR 0.96, GFR >60, GLUCOSE 110 02/13/24: CULTURE TO RIGHT HEEL KLEBSIELLA OXYTOCA AND LEFT PRETIBIAL STAPH EPIDERMIDIS 01/09/24: RIGHT FOOT XRAY WITH FRACTURE OF SCREW AND LUCENCY TO 2ND DIGIT FRACTURE VS OSTEO, REFERRED TO PODIATRY 01/09/24: CULTURE RIGHT FOOT CORYNEBACTERIUM STRIATUM, RX'D LINEZOLID. MRI C/I D/T DEFIBRILLATOR 11/28/23: CULTURE RIGHT FOOT CORYNEBACTERIUM STRIATUM 11/28/23: BILATERAL CT ANGIO, ID TO START IV ANTIBIOTICS 11/21/23 LEFT CALCANEAL XRAY NO EVIDENCE OSTEOMYELITIS, SOFT TISSUE SWELLING, SEVERE ATHEROSCLEROSIS. TIB/FIB XRAY ORTHOPEDIC HARDWARE NOTED, SEVERE ATHEROSCLEROTIC VASCULAR CALCIFICATIONS 11/21/23 ARTERIAL US DAMPENED WAVEFORMS BILATERALLY WITHIN INFRAGENICULATE ARTERIES IN ADDITION TO HEAVILY CALCIFIED VESSELS. FOCAL HEMODYNAMICALLY SIGNIFICANT STENOSIS AT LEVEL OF POPLITEAL ARTERIES CANNOT BE EXCLUDED. IF FURTHER CHARACTERIZATION WARRANTED TO EVALUATE FOR THERAPEUTIC INTERVENTION, CTA WITH B/L LOWER EXTREMITY RUNOFF RECOMMENDED 11/14/23 GUILLE: PAD, NOTES REQUESTED FROM VASCULAR 11/12/23 CULTURE POS FOR PSEUDOMONAS, E COLI, K PNEUMONIA PER PT LAST A1C W/IN 2 MOS WNL MEDICAL HISTORY THIS INFORMATION WAS OBTAINED FROM THE CHART, PATIENT. PATIENT HAS A MEDICAL HISTORY OF: ARTHRITIS TYPE II DIABETES HEART MURMUR HYPERTENSION MEMORY LOSS (SHORT TERM) TRANSIENT ISCHEMIC ATTACK (TIA) - 10/06/2023 PAD LOWER EXTREMITY EDEMA ANEMIA CHRONIC CHF EXERTIONAL DYSPNEA INSOMNIA LUMBAR REGION WITH NEUROGENIC CLAUDICATION VENTRICULAR TACHYCARDIA (ICD IMPLANTED (12/2022)) ISCHEMIC CARDIOMYOPATHY GASTROESOPHAGEAL REFLUX DISEASE IRON DEFICIENCY B12 DEFICIENCY ADHD BASAL CELL CARCINOMA (NOSE) ATRIAL FIBRILLATION OBSTRUCTIVE SLEEP APNEA DIVERTICULITIS DYSLIPIDEMIA MYOCARDIAL INFARCTION (CO) (09/2022) RANULFO CARUSO [id number] 1940 ADDITIONAL INFORMATION DOES PATIENT HAVE A HISTORY OF CANCER? YES? COMPLETE ALL QUESTIONS.: YES LOCATION OF CANCER: SKIN (NOSE) SURGICAL HISTORY THIS INFORMATION WAS OBTAINED FROM THE CHART, PATIENT. PATIENT HAS A SURGICAL HISTORY OF: CORONARY ARTERY BYPASS GRAFT (CABG)- CARDIAC SURGERY- CARDIAC VALVE REPLACEMENT- CARDIAC VALVE SURGERY- CATARACT SURGERY- 02/27/2022 (LEFT) CATARACT SURGERY- 03/20/2022 (RIGHT) HIP REPLACEMENT, TOTAL JOINT REPLACEMENT- 12/17/2021 (RIGHT) RECONSTRUCTION OF BOTH FEET- (ARTIFICIAL ANKLE OF LEFT FOOT) TOOTH EXTRACTION AND IMPLANTS- PROSTATE SURGERY- TONSILLECTOMY AND ADENOIDECTOMY- (1944 (< AGE 10)) VASECTOMY- OBJECTIVE VITALS HEIGHT/LENGTH: 77 IN (195.58 CM), WEIGHT: 199.7 LBS (90.77 KGS), BMI: 23.7, TEMPERATURE: 97.5 ?F (36.39 ?C), PULSE: 71 BPM, RESPIRATORY RATE: 16 BREATHS/MIN, BLOOD PRESSURE: 132/86 MMHG, CAPILLARY BLOOD GLUCOSE: 152 MG/DL, PULSE OXIMETRY: 100 %. GENERAL NOTES VITALS TAKEN POST HBOT PHYSICAL EXAM CONSTITUTIONAL: VITAL SIGNS REVIEWED AND NOTED. WELL DEVELOPED, WELL NOURISHED, AND IN NO ACUTE DISTRESS. ALERT AND ORIENTED X3. RESPIRATORY: EVEN RESPIRATIONS WITHOUT USE OF ACCESSORY MUSCLES. NO INTERCOASTAL RETRACTIONS NOTED. EVEN AND NON LABORED RESPIRATION. INTEGUMENTARY (HAIR, SKIN): NO ERYTHEMA. NO SWELLING OR TENDERNESS. SEE WOUND ASSESSMENT. SKIN WARM AND DRY. NO RASHES. NEUROLOGICAL: DECREASED LOWER EXTREMITY SENSATION. PSYCHIATRIC: ORIENTATION TO TIME, PLACE AND PERSON: NORMAL AFFECT WITH NORMAL THOUGHT PATTERN. ADDITIONAL INFORMATION THE PATIENT'S POTENTIAL TO HEAL IS: FAIR. WOUND ASSESSMENT(S) WOUND #6 LEFT HEEL IS A CHRONIC HERNANDEZ GRADE 3 DIABETIC ULCER ACQUIRED ON 12/20/2023 AND HAS RECEIVED A STATUS OF NOT HEALED. INITIAL WOUND ENCOUNTER MEASUREMENTS ARE 1CM LENGTH X 0.5CM WIDTH X 0.3 CM DEPTH, WITH AN AREA OF 0.5 SQ CM AND A VOLUME OF 0.15 CUBIC CM.INITIAL WOUND ENCOUNTER PREVIOUS MEASUREMENTS FROM 12/24/2024 ARE 1.4CM LENGTH X 1.5CM WIDTH X 0.3CM DEPTH, WITH AN AREA SHADYRANULFO [id number] 1940 OF 2.1 SQ CM AND A VOLUME OF 0.63 CUBIC CM. TENDON AND ADIPOSE ARE EXPOSED. NO TUNNELING HAS BEEN NOTED. NO SINUS TRACT HAS BEEN NOTED. NO UNDERMINING HAS BEEN NOTED. THERE IS A MODERATE AMOUNT OF SEROSANGUINEOUS DRAINAGE NOTED WHICH HAS NO ODOR. THE PATIENT REPORTS A WOUND PAIN OF LEVEL 0/10. THE WOUND MARGIN IS UNATTACHED WOUND BED HAS YES, BRIGHT RED, PINK, FIRM, GRANULATION, YES SLOUGH, NO ESCHAR, YES EPITHELIALIZATION. THE PERIWOUND SKIN EXHIBITED EDEMA, ECCHYMOSIS AND ERYTHEMA. THE PERIWOUND SKIN DID NOT EXHIBIT BRAWNY INDURATION, EXCORIATION, INDURATION, CALLUS, CREPITUS, FLUCTUANCE, RASH, MACERATION, ATROPHIE DUSTIN, CYANOSIS, HEMOSIDEROSIS, PALLOR AND RUBOR. THE PERIWOUND SKIN WAS NOT FRIABLE, DRY/SCALY AND MOIST. THE TEMPERATURE OF THE PERIWOUND SKIN IS WNL. PERIWOUND SKIN DOES NOT EXHIBIT SIGNS OR SYMPTOMS OF INFECTION. LOCAL PULSE IS DOPPLER. ADDITIONAL INFORMATION OTHER DEVITALIZED TISSUE PRESENT: BIOFILM WOUND #11 RIGHT HEEL IS AN ACUTE HERNANDEZ GRADE 2 DIABETIC ULCER ACQUIRED ON 12/22/2024 AND HAS RECEIVED A STATUS OF NOT HEALED. INITIAL WOUND ENCOUNTER MEASUREMENTS ARE 0.5CM LENGTH X 0.3CM WIDTH X 0.1 CM DEPTH, WITH AN AREA OF 0.15 SQ CM AND A VOLUME OF 0.015 CUBIC CM.INITIAL WOUND ENCOUNTER PREVIOUS MEASUREMENTS FROM 12/24/2024 ARE 0.2CM LENGTH X 0.2CM WIDTH X 0.1CM DEPTH, WITH AN AREA OF 0.04 SQ CM AND A VOLUME OF 0.004 CUBIC CM. ADIPOSE IS EXPOSED. NO TUNNELING HAS BEEN NOTED. NO SINUS TRACT HAS BEEN NOTED. NO UNDERMINING HAS BEEN NOTED. THERE IS A MODERATE AMOUNT OF SEROSANGUINEOUS DRAINAGE NOTED WHICH HAS NO ODOR. THE PATIENT REPORTS A WOUND PAIN OF LEVEL 0/10. THE WOUND MARGIN IS ATTACHED WOUND BED HAS YES, PINK, FIRM, GRANULATION, YES SLOUGH, NO ESCHAR, NO EPITHELIALIZATION. THE PERIWOUND SKIN EXHIBITED ECCHYMOSIS AND ERYTHEMA. THE PERIWOUND SKIN DID NOT EXHIBIT BRAWNY INDURATION, EDEMA, EXCORIATION, INDURATION, CALLUS, CREPITUS, FLUCTUANCE, RASH, MACERATION, ATROPHIE DUSTIN, CYANOSIS, HEMOSIDEROSIS, PALLOR AND RUBOR. THE PERIWOUND SKIN WAS NOT FRIABLE, DRY/SCALY AND MOIST. THE TEMPERATURE OF THE PERIWOUND SKIN IS WNL. PERIWOUND SKIN DOES NOT EXHIBIT SIGNS OR SYMPTOMS OF INFECTION. LOCAL PULSE IS DOPPLER. ADDITIONAL INFORMATION OTHER DEVITALIZED TISSUE PRESENT: BIOFILM WOUND #12 RIGHT TOE - SECOND IS AN ACUTE HERNANDEZ GRADE 2 DIABETIC ULCER ACQUIRED ON 12/24/2024 AND HAS RECEIVED A STATUS OF NOT HEALED. INITIAL WOUND ENCOUNTER MEASUREMENTS ARE 0.3CM LENGTH X 0.5CM WIDTH X 0.2 CM DEPTH, WITH AN AREA OF 0.15 SQ CM AND A VOLUME OF 0.03 CUBIC CM.INITIAL WOUND ENCOUNTER PREVIOUS MEASUREMENTS FROM 12/24/2024 ARE 0.5CM LENGTH X 1.1CM WIDTH X 0.1CM DEPTH, WITH AN AREA OF 0.55 SQ CM AND A VOLUME OF 0.055 CUBIC CM. BONE AND ADIPOSE ARE EXPOSED. NO TUNNELING HAS BEEN NOTED. NO SINUS TRACT HAS BEEN NOTED. NO UNDERMINING HAS BEEN NOTED. THERE IS A MODERATE AMOUNT OF SEROSANGUINEOUS DRAINAGE NOTED WHICH HAS NO ODOR. THE PATIENT REPORTS A WOUND PAIN OF LEVEL 0/10. THE WOUND MARGIN IS UNATTACHED WOUND BED HAS NO, GRANULATION, YES SLOUGH, YES ESCHAR, NO EPITHELIALIZATION. THE PERIWOUND SKIN EXHIBITED ERYTHEMA. THE PERIWOUND SKIN DID NOT EXHIBIT BRAWNY INDURATION, EDEMA, EXCORIATION, INDURATION, CALLUS, CREPITUS, FLUCTUANCE, RASH, MACERATION, ATROPHIE DUSTIN, CYANOSIS, ECCHYMOSIS, HEMOSIDEROSIS, PALLOR AND RUBOR. THE PERIWOUND SKIN WAS MOIST. THE PERIWOUND SKIN WAS NOT FRIABLE AND DRY/SCALY. THE TEMPERATURE OF THE PERIWOUND SKIN IS WNL. PERIWOUND SKIN DOES NOT EXHIBIT SIGNS OR SYMPTOMS OF INFECTION. LOCAL PULSE IS PALPABLE. ADDITIONAL INFORMATION OTHER DEVITALIZED TISSUE PRESENT: BIOFILM ASSESSMENT ACTIVE PROBLEMS ICD-10 (ENCOUNTER DIAGNOSIS) L97.428 - NON-PRESSURE CHRONIC ULCER OF LEFT HEEL AND MIDFOOT WITH OTHER SPECIFIED SEVERITY SHADY RANULFO Steve [id number] 1940 (ENCOUNTER DIAGNOSIS) E11.621 - TYPE 2 DIABETES MELLITUS WITH FOOT ULCER (ENCOUNTER DIAGNOSIS) E11.42 - TYPE 2 DIABETES MELLITUS WITH DIABETIC POLYNEUROPATHY (ENCOUNTER DIAGNOSIS) I73.9 - PERIPHERAL VASCULAR DISEASE, UNSPECIFIED (ENCOUNTER DIAGNOSIS) M86.171 - OTHER ACUTE OSTEOMYELITIS, RIGHT ANKLE AND FOOT (ENCOUNTER DIAGNOSIS) L97.512 - NON-PRESSURE CHRONIC ULCER OF OTHER PART OF RIGHT FOOT WITH FAT LAYER EXPOSED (ENCOUNTER DIAGNOSIS) L97.412 - NON-PRESSURE CHRONIC ULCER OF RIGHT HEEL AND MIDFOOT WITH FAT LAYER EXPOSED GENERAL NOTES HERNANDEZ 3 DIABETIC ULCER LEFT HEEL, MEASUREMENTS IMPROVED HERNANDEZ 1 DIABETIC ULCER POSTERIOR RIGHT HEEL IMPROVED ULCER TIP OF RIGHT 2ND TOE WITH EXPOSED DISTAL PHALANX THE FOLLOWING FACTORS HAVE BEEN IDENTIFIED THAT MAY AFFECT WOUND HEALING: DEVITALIZED TISSUE BIOFILM ADVANCED AGE PRESSURE DIABETES PAD INFECTION GOALS: REMOVE DEVITALIZED TISSUE REMOVE AND PREVENT BIOFILM REDUCE PRESSURE TREAT INFECTION PROTEIN SUPPLEMENTATION PLAN: DEBRIDEMENT, EXPOSED DISTAL PHALANX RESECTED AND SENT TO PATHOLOGY, CONTINUE DRESSING CHANGES WITH SILVER COLLAGEN TO EACH ULCER, CONTINUE DOXYCYCLINE FOR 1 MORE WEEK, USE E HOB BOOT FOR PRESSURE OFFLOADING. CONTINUE HYPERBARIC OXYGEN THERAPY. CONTINUE PROTEIN SUPPLEMENTATION, FOLLOW UP IN 1 WEEK FOR RECHECK. THE PATIENT HAS BEEN IMPROVING WITH HYPERBARIC OXYGEN THERAPY. PROCEDURES WOUND #6 WOUND #6 (DIABETIC ULCER) IS LOCATED ON THE LEFT HEEL. A SKIN/SUBCUTANEOUS TISSUE LEVEL SURGICAL DEBRIDEMENT WITH A TOTAL AREA DEBRIDED OF 0.5 SQ CM. WAS PERFORMED BY WESLEY ENCISO MD. SUBCUTANEOUS WAS REMOVED ALONG WITH DEVITALIZED TISSUE: BIOFILM, EXUDATE AND SLOUGH. THE FOLLOWING INSTRUMENT(S) WERE USED: CURETTE. PAIN CONTROL WAS ACHIEVED USING EMLA LIDOCAINE/PRILOCAINE 2.5%/2.5%. A TIME OUT WAS CONDUCTED PRIOR TO THE START OF THE PROCEDURE. A MINIMAL AMOUNT OF BLEEDING WAS CONTROLLED WITH PRESSURE. THE PROCEDURE WAS TOLERATED WELL WITH A PAIN LEVEL OF 0 THROUGHOUT AND A PAIN LEVEL OF 0 FOLLOWING THE PROCEDURE. POST DEBRIDEMENT MEASUREMENTS: 1CM LENGTH X 0.5CM WIDTH X 0.4CM DEPTH; WITH AN AREA OF 0.5 SQ CM AND A VOLUME OF 0.2 CUBIC CM. ADDITIONAL INFORMATION MUSCLE FASCIA OR BONE REMOVED AND SENT TO PATHOLOGY?: NO WOUND #11 WOUND #11 (DIABETIC ULCER) IS LOCATED ON THE RIGHT HEEL. A SKIN/SUBCUTANEOUS TISSUE LEVEL SURGICAL DEBRIDEMENT WITH A TOTAL AREA DEBRIDED OF 0.15 SQ CM. WAS PERFORMED BY WESLEY ENCISO MD. RANULFO CARUSO [id number] 1940 SUBCUTANEOUS WAS REMOVED ALONG WITH DEVITALIZED TISSUE: BIOFILM, EXUDATE AND SLOUGH. THE FOLLOWING INSTRUMENT(S) WERE USED: CURETTE. PAIN CONTROL WAS ACHIEVED USING EMLA LIDOCAINE/PRILOCAINE 2.5%/2.5%. A TIME OUT WAS CONDUCTED PRIOR TO THE START OF THE PROCEDURE. A MINIMAL AMOUNT OF BLEEDING WAS CONTROLLED WITH PRESSURE. THE PROCEDURE WAS TOLERATED WELL WITH A PAIN LEVEL OF 0 THROUGHOUT AND A PAIN LEVEL OF 0 FOLLOWING THE PROCEDURE. POST DEBRIDEMENT MEASUREMENTS: 0.5CM LENGTH X 0.3CM WIDTH X 0.2CM DEPTH; WITH AN AREA OF 0.15 SQ CM AND A VOLUME OF 0.03 CUBIC CM. ADDITIONAL INFORMATION MUSCLE FASCIA OR BONE REMOVED AND SENT TO PATHOLOGY?: NO WOUND #12 WOUND #12 (DIABETIC ULCER) IS LOCATED ON THE RIGHT TOE - SECOND. A SKIN/SUBCUTANEOUS TISSUE/MUSCLE/FASCIA/BONE LEVEL SURGICAL DEBRIDEMENT WITH A TOTAL AREA DEBRIDED OF 0.15 SQ CM. WAS PERFORMED BY WESLEY NECISO MD. BONE AND SUBCUTANEOUS WERE REMOVED ALONG WITH DEVITALIZED TISSUE: BIOFILM, EXUDATE AND SLOUGH. THE FOLLOWING INSTRUMENT(S) WERE USED: CURETTE AND RONGEUR. PAIN CONTROL WAS ACHIEVED USING EMLA LIDOCAINE/PRILOCAINE 2.5%/2.5%. A TIME OUT WAS CONDUCTED PRIOR TO THE START OF THE PROCEDURE. A MINIMAL AMOUNT OF BLEEDING WAS CONTROLLED WITH PRESSURE. THE PROCEDURE WAS TOLERATED WELL WITH A PAIN LEVEL OF 0 THROUGHOUT AND A PAIN LEVEL OF 0 FOLLOWING THE PROCEDURE. POST DEBRIDEMENT MEASUREMENTS: 0.3CM LENGTH X 0.5CM WIDTH X 0.3CM DEPTH; WITH AN AREA OF 0.15 SQ CM AND A VOLUME OF 0.045 CUBIC CM. ADDITIONAL INFORMATION MUSCLE FASCIA OR BONE REMOVED AND SENT TO PATHOLOGY?: YES PLAN WOUND ORDERS: WOUND #6 LEFT HEEL HAND HYGIENE HAND HYGIENE - WASH HANDS BEFORE AND AFTER WOUND CARE. CALL THE WOUND CENTER AT [phone] IF YOU HAVE SIGNS OR SYMPTOMS OF INFECTION, FEVER CHILLS OR SHAKES, INCREASED DRAINAGE, INCREASED ODOR OR UNUSUAL REDNESS. AFTER WOUND CENTER HOURS PLEASE NOTIFY YOUR PCP OR GO TO THE EMERGENCY ROOM. CLEANSER CLEANSE WOUND WITH NORMAL SALINE - IN CLINIC. CLEANSE WOUND AND VIVIAN WOUND WITH A NON-CYTOTOXIC WOUND CLEANSER. - VASHE CLEANSER AT HOME. MAY SHOWER, LEAVE WOUND DRESSING INTACT. COVER WOUND DRESSING WITH A WATERPROOF BARRIER. KEEP DRESSING DRY. NO BATHS PLEASE. PROCEDURE / ANESTHETIC 5% TOPICAL LIDOCAINE TO WOUND BED PRIOR TO PROCEDURE, IN CLINIC ONLY. DRESSING ORDERS APPLY DRESSING(S) AND SECURE WITH: - PURACOL PLUS AG, MOISTENED WITH NORMAL SALINE OR DISTILLED WATER. OPTIFOAM SECURED WITH TAPE. DRESSING CHANGE FREQUENCY CHANGE DRESSING EVERY OTHER DAY. - OR MORE FREQUENTLY FOR DRAINAGE CONTROL. CHANGE DRESSING IF IT BECOMES SOILED OR WET. WOUND #11 RIGHT HEEL HAND HYGIENE HAND HYGIENE - WASH HANDS BEFORE AND AFTER WOUND CARE. CALL THE WOUND CENTER AT [phone] IF YOU HAVE SIGNS OR SYMPTOMS OF INFECTION, FEVER CHILLS OR SHAKES, INCREASED DRAINAGE, INCREASED ODOR OR UNUSUAL REDNESS. AFTER WOUND CENTER HOURS PLEASE NOTIFY YOUR PCP OR GO TO THE EMERGENCY ROOM. CLEANSER CLEANSE WOUND WITH NORMAL SALINE - IN CLINIC. CLEANSE WOUND AND VIVIAN WOUND WITH A NON-CYTOTOXIC WOUND CLEANSER. - VASHE CLEANSER AT HOME. MAY SHOWER, LEAVE WOUND DRESSING INTACT. COVER WOUND DRESSING WITH A WATERPROOF BARRIER. KEEP DRESSING DRY. NO BATHS PLEASE. PROCEDURE / ANESTHETIC RANULFO CARUSO [id number] 1940 5% TOPICAL LIDOCAINE TO WOUND BED PRIOR TO PROCEDURE, IN CLINIC ONLY. DRESSING ORDERS APPLY DRESSING(S) AND SECURE WITH: - PURACOL PLUS AG, MOISTENED WITH NORMAL SALINE OR DISTILLED WATER. OPTIFOAM SECURED WITH TAPE. DRESSING CHANGE FREQUENCY CHANGE DRESSING EVERY OTHER DAY. - OR MORE FREQUENTLY FOR DRAINAGE CONTROL. CHANGE DRESSING IF IT BECOMES SOILED OR WET. WOUND #12 RIGHT TOE - SECOND PROCEDURE / ANESTHETIC 5% TOPICAL LIDOCAINE TO WOUND BED PRIOR TO PROCEDURE, IN CLINIC ONLY. DRESSING ORDERS APPLY DRESSING(S) AND SECURE WITH: - PURACOL PLUS AG, MOISTENED WITH NORMAL SALINE OR DISTILLED WATER. OPTIFOAM SECURED WITH TAPE. DRESSING CHANGE FREQUENCY CHANGE DRESSING EVERY OTHER DAY. - OR MORE FREQUENTLY FOR DRAINAGE CONTROL. CHANGE DRESSING IF IT BECOMES SOILED OR WET. ADDITIONAL ORDERS: COMPRESSION/EDEMA CONTROL ELEVATE LEG(S) ABOVE THE LEVEL OF THE HEART MUCH POSSIBLE. AVOID STANDING IN ONE POSITION FOR MORE THAN 10 MINUTES. AVOID SITTING WITH LEGS DOWN. DO NOT CROSS LEGS WHEN SITTING. OFF-LOADING / PRESSURE RELIEF TOTAL NON-WEIGHT BEARING USING: - EHOB BOOTS TO BOTH HEELS WHILE IN BED OR RESTING IN A RECLINED POSITION. USE/WEAR WHEN WALKING: - POST-OP SHOE OR SANDALS THAT DON'T PUT PRESSURE ON YOUR WOUNDS. OTHER ORDER: - KEEP WEIGHT OFF ALL ULCERS. DIETARY TAKE VITAMIN C 1000MG BY MOUTH DAILY. TAKE ZINC 25MG BY MOUTH DAILY. INCREASE THE PROTEIN IN YOUR DIET. - SUPPLEMENT WITH DIABETIC FRIENDLY PROTEIN SHAKES IN BETWEEN REGULAR MEALS. ACTIVITY OTHER ORDER: - DECREASE ACTIVITY MUCH POSSIBLE WHILE WE ARE CLOSELY MONITORING THE WOUND ON YOUR HEELS AND RIGHT SECOND TOE. FOLLOW-UP APPOINTMENTS COMPLETE ALL LAB WORK AND ORDERED TESTS BEFORE YOUR NEXT VISIT. - CBC, CMP, ESR, CRP, PRE-ALBUMIN. RETURN APPOINTMENT 1 WEEK OTHER ORDERS: - PLEASE CONTINUE TAKING DOXYCYCLINE PRESCRIBED, A REFILL WILL BE SENT TO YOUR PHARMACY. SCRIBING ATTESTATION I ATTEST, THE NURSE, THAT I SCRIBED THESE ORDERS FOR THE WOUND CARE PROVIDER. PROVIDER REVIEW AND ATTESTATION: REVIEWED AND EVALUATED LABS. REVIEWED HOSPITAL RECORDS. DISCUSSED THE PLAN OF CARE @ BEDSIDE WITH - THE PATIENT I AGREE AND ATTEST TO THE ABOVE INFORMATION PROVIDED FROM OTHER LICENSED PROFESSIONALS. ANCILLARY SERVICES: LABORATORY: PATHOLOGY - SAMPLE OF BONE FROM YOUR RIGHT SECOND TOE WILL BE SENT TO PATHOLOGY FOR TESTING. WE WILL NOTIFY YOU WHEN RESULTS ARE RECEIVED. MEDICATIONS PRESCRIBED: DOXYCYCLINE MONOHYDRATE - ORAL 100 MG 1 TABLET TWICE DAILY FOR 1 WEEK STARTING 12/30/2024 PLAN OF CARE: 01. ENSURE/ESTABLISH OPTIMAL BLOOD FLOW : - COMPLETE LOWER EXTREMITY ASSESSMENT STATUS: CONTINUED DATE: 12/22/2024 RANULFO CARUSO [id number] 1940 - PERFORM NON-INVASIVE VASCULAR TESTING (I.E. GUILLE) AND DOCUMENT FINDINGS. CONSIDER REPEATING WHEN WOUND HEALING <40% AFTER 30 DAYS OF WOUND CARE. STATUS: COMPLETED DATE: 11/14/2023 - ORDER VASCULAR CONSULT FOR EVALUATION/TREATMENT AND/OR NON-INVASIVE VASCULAR TESTING. STATUS: COMPLETED DATE: 05/18/2024 02. ASSESS FOR/TREAT INFECTION : - EVALUATE FOR SIGNS AND SYMPTOMS OF INFECTION AND DOCUMENT FINDINGS. STATUS: CONTINUED DATE: 12/22/2024 03. DEBRIDE WEEKLY OR MORE OFTEN PRN : - EVALUATE PATIENT IN CENTER WEEKLY TO ASSESS WOUND BED AND MARGINS FOR NEED FOR DEBRIDEMENT. STATUS: CONTINUED DATE: 12/22/2024 - DEBRIDEMENT BY ANY METHOD TO REMOVE DEVITALIZED/NECROTIC TISSUE TO PROMOTE HEALING AND PREVENT FURTHER COMPLICATIONS. GOAL IS TO STIMULATE AND/OR MAINTAIN ACUTE PHASE OF WOUND HEALING BY REDUCING BACTERIAL BURDEN AND DEVITALIZED/NON-VIABLE TISSUE. STATUS: CONTINUED DATE: 12/22/2024 04. OPTIMIZE GLUCOSE CONTROL AND NUTRITION : - ORDER/REVIEW PERTINENT LABS TO EVALUATE RENAL FUNCTION, GLUCOSE CONTROL, AND NUTRITIONAL STATUS. STATUS: CONTINUED DATE: 12/22/2024 05. OFFLOADING PLAN : - EVALUATE PLAN FOR OFFLOADING STATUS: CONTINUED DATE: 12/22/2024 - ADVISE PATIENT TO OFFLOAD THE FOOT ULCER. (I.E. HALF SHOE, SURGICAL SHOE, INSERT, CUSTOM SHOE, FELT AND FOAM, CAM WALKER, MULTIPODUS SPLINT, TOTAL CONTACT CAST, BI-VALVE CAST, POSTERIOR SPLINT). STATUS: CONTINUED DATE: 12/22/2024 06. OPTIMIZE HOST FACTORS: - ASSESS AND REVIEW PATIENT HISTORY FOR WOUND ETIOLOGY, CO-MORBID CONDITIONS, MEDICATION REGIME, AND SMOKING HISTORY. STATUS: CONTINUED DATE: 12/22/2024 07. DRESSING SELECTION : - EVALUATE FOR DRESSING-RELATED FACTORS, SUCH AVAILABILITY, WEAR TIME, ADAPTABILITY AND USE TO BETTER OPTIMIZE WOUND HEALING AND PATIENT COMPLIANCE. STATUS: CONTINUED DATE: 12/22/2024 - CHOOSE TOPICAL TREATMENTS AND/OR DRESSING BASED ON WOUND TYPE AND APPEARANCE, PERIWOUND SKIN CONDITION, WOUND SIZE AND DEPTH, ANATOMIC LOCATION, VOLUME OF EXUDATE, EDEMA IN THE LOWER EXTREMITIES, AND RISK OR PRESENCE OF INFECTION. STATUS: CONTINUED DATE: 12/22/2024 08. ADVANCED MODALITIES : - SET TREATMENT GOALS ACCORDING TO PATIENT AND/OR CAREGIVER?S ABILITY/ COMPLIANCE. STATUS: CONTINUED DATE: 12/22/2024 - RE-EVALUATE PLAN OF CARE IF NO EVIDENCE OF HEALING (40% IN 4 WEEKS). STATUS: CONTINUED DATE: 12/22/2024 09. FALL PREVENTION : - ENCOURAGE INSTALLATION AND USE GRAB BARS IN BATHROOMS. STATUS: CONTINUED DATE: 12/22/2024 10. PAIN MANAGEMENT : - COMPLETE PAIN ASSESSMENT STATUS: CONTINUED DATE: 12/22/2024 - PREPARE PATIENT TO SET REASONABLE EXPECTATIONS PRIOR TO PROCEDURE. STATUS: CONTINUED DATE: 12/22/2024 11. MEASURABLE GOALS FOR WOUND HEALING AND/OR HYPERBARIC OXYGEN THERAPY : - DECREASE WOUND DIMENSIONS RANULFO CARUSO [id number] STATUS: CONTINUED DATE: 12/22/2024 - WOUND CLOSURE STATUS: CONTINUED DATE: 12/22/2024 12. DURATION/FREQUENCY OF WOUND CARE VISITS : - 1X WEEKLY FOR 30 DAYS STATUS: CONTINUED DATE: 12/22/2024 ELECTRONIC SIGNATURE(S) SIGNED BY: DATE: WESLEY ENCISO MD 12/30/2024 16:18:43 (PT) ENTERED BY: WESLEY ENCISO MD ON 12/30/2024 16:16:13 (PT) RANULFO CARUSO [id number] 1940
== END ==
PROVIDERS: Family Provider Family Medicine; PCP Family Medicine; Referring Provider Family Medicine; Visit Provider Surgery
DX: E11.621 Type 2 diabetes mellitus with foot ulcer (principal); I73.9 Peripheral vascular disease, unspecified; L97.422 Non-pressure chronic ulcer of left heel and midfoot with fat layer exposed; L97.412 Non-pressure chronic ulcer of right heel and midfoot with fat layer exposed; L97.512 Non-pressure chronic ulcer of other part of right foot with fat layer exposed; L53.8 Other specified erythematous conditions
CPT/HCPCS: 11042; 11044; 99183; G0277

== ENCOUNTER → 2024-12-31 11:26 | Outpatient (CLI) | payer OTHER, SELFPAY | PROVIDERS: Family Provider Family Medicine; PCP Family Medicine; Referring Provider Family Medicine; Visit Provider Physician Assistant | DX: E11.621 Type 2 diabetes mellitus with foot ulcer (principal); L97.428 Non-pressure chronic ulcer of left heel and midfoot with other specified severity; L97.412 Non-pressure chronic ulcer of right heel and midfoot with fat layer exposed; L97.516 Non-pressure chronic ulcer of other part of right foot with bone involvement without evidence of necrosis; R60.0 Localized edema; L98.8 Other specified disorders of the skin and subcutaneous tissue; L53.9 Erythematous condition, unspecified; R23.3 Spontaneous ecchymoses | CPT/HCPCS: 99211 ==

== ENCOUNTER → 2024-12-31 13:08 | Outpatient (CLI) | payer OTHER, SELFPAY ==
[2024-12-31 13:50] LABS: Add Manual Diff / Slide Review NO; Basophils Absolute Auto 100 /uL (0-100); Basophils Percent Auto 1.1 % (0-2); Eosinophils Absolute Auto 400 /uL (0-450); Eosinophils Percent Auto 4.5 % (2-4); Hematocrit 40.2 % (41-53); Hemoglobin 13.2 g/dL (13.5-17.5); Lymphocytes Absolute Auto 1300 /uL (1100-4500); Lymphocytes Percent Auto 15.3 % (25-40); Mean Corpuscular HGB Conc 32.9 % (30-36); Mean Corpuscular Hemoglobin 32.2 PG (26-34); Mean Corpuscular Volume 97.9 fL (80-100); Monocytes Absolute Auto 700 /uL (0-900); Monocytes Percent Auto 8.7 % (3-14); Neutrophils Absolute Auto 5800 /uL (1500-7000); Neutrophils Percent Auto 70.4 % (50-75); Platelet Count 237 X10^3/uL (150-400); Red Blood Cell Count 4.11 X10^6/uL (4.5-5.9); Red Cell Distribution Width 14.6 % (11.6-14.8); White Blood Cell Count 8.3 X10^3/uL (4.5-11.0)
[2024-12-31 14:13] LABS: Alanine Aminotransferase 31 IU/L (<50); Albumin 4.8 g/dL (3.5-5.0); Albumin Globulin Ratio 1.7 (1.0-2.8); Alkaline Phosphatase 104 U/L (38-126); Aspartate Aminotransferase 27 IU/L (17-59); Bilirubin Total 0.8 mg/dL (0.2-1.3); Blood Urea Nitrogen 27 mg/dL (9-20); C-Reactive Protein Quant < 0.5 mg/dL (<1.0); Calcium 10.5 mg/dL (8.4-10.2); Carbon Dioxide 27 mmol/L (22-32); Chloride 103 mmol/L (98-107); Estimated Glomerular Filt Rate 57 mL/min (>60); Globulin 2.8 g/dL (1.7-4.1); Glucose 99 mg/dL (80-110); HEMOLYSIS < 15 (0-50); Potassium 4.4 mmol/L (3.4-5.1); Sodium 143 mmol/L (137-145); Total Protein 7.6 g/dL (6.3-8.2)
[2024-12-31 14:18] LABS: Prealbumin 29.8 mg/dL (17.6-36.0)
[2024-12-31 14:32] LABS: Erythrocyte Sedimentation Rate 33 MM/HR (0-15)
== END ==
PROVIDERS: Family Provider Family Medicine; PCP Family Medicine; Referring Provider Surgery; Visit Provider Surgery
DX: E11.621 Type 2 diabetes mellitus with foot ulcer (principal)
CPT/HCPCS: 36415; 80053; 84134; 85025; 85651; 86140

== ENCOUNTER → 2025-01-03 11:47 | Outpatient (CLI) | payer OTHER, SELFPAY | PROVIDERS: Family Provider Family Medicine; PCP Family Medicine; Referring Provider Family Medicine; Visit Provider Surgery | DX: L97.428 Non-pressure chronic ulcer of left heel and midfoot with other specified severity (principal); E11.621 Type 2 diabetes mellitus with foot ulcer; E11.42 Type 2 diabetes mellitus with diabetic polyneuropathy; I73.9 Peripheral vascular disease, unspecified; M86.171 Other acute osteomyelitis, right ankle and foot; L97.512 Non-pressure chronic ulcer of other part of right foot with fat layer exposed; L97.412 Non-pressure chronic ulcer of right heel and midfoot with fat layer exposed | CPT/HCPCS: 99183; G0277 ==

== ENCOUNTER → 2025-01-04 13:48 | Outpatient (CLI) | payer OTHER, SELFPAY | PROVIDERS: Family Provider Family Medicine; PCP Family Medicine; Referring Provider Family Medicine; Visit Provider Surgery | DX: E11.621 Type 2 diabetes mellitus with foot ulcer (principal); L97.428 Non-pressure chronic ulcer of left heel and midfoot with other specified severity; I73.9 Peripheral vascular disease, unspecified; M86.171 Other acute osteomyelitis, right ankle and foot; L97.512 Non-pressure chronic ulcer of other part of right foot with fat layer exposed; L97.412 Non-pressure chronic ulcer of right heel and midfoot with fat layer exposed | CPT/HCPCS: 99183; G0277 ==

== ENCOUNTER → 2025-01-05 14:00 | Outpatient (CLI) | payer OTHER, SELFPAY | PROVIDERS: Family Provider Family Medicine; PCP Family Medicine; Referring Provider Family Medicine; Visit Provider Surgery | DX: L97.428 Non-pressure chronic ulcer of left heel and midfoot with other specified severity (principal); E11.621 Type 2 diabetes mellitus with foot ulcer; E11.42 Type 2 diabetes mellitus with diabetic polyneuropathy; I73.9 Peripheral vascular disease, unspecified; M86.171 Other acute osteomyelitis, right ankle and foot; L97.512 Non-pressure chronic ulcer of other part of right foot with fat layer exposed; L97.412 Non-pressure chronic ulcer of right heel and midfoot with fat layer exposed | CPT/HCPCS: 99183; G0277 ==

== ENCOUNTER → 2025-01-06 13:31 | Outpatient (CLI) | payer OTHER, SELFPAY | PROVIDERS: Family Provider Family Medicine; PCP Family Medicine; Referring Provider Family Medicine; Visit Provider Surgery | DX: E11.621 Type 2 diabetes mellitus with foot ulcer (principal); I73.9 Peripheral vascular disease, unspecified; M86.171 Other acute osteomyelitis, right ankle and foot; L97.422 Non-pressure chronic ulcer of left heel and midfoot with fat layer exposed; L97.516 Non-pressure chronic ulcer of other part of right foot with bone involvement without evidence of necrosis; L53.8 Other specified erythematous conditions; L97.428 Non-pressure chronic ulcer of left heel and midfoot with other specified severity; E11.42 Type 2 diabetes mellitus with diabetic polyneuropathy; L97.512 Non-pressure chronic ulcer of other part of right foot with fat layer exposed; L97.412 Non-pressure chronic ulcer of right heel and midfoot with fat layer exposed | CPT/HCPCS: 11042; 99183; 99212; G0277 ==

== ENCOUNTER → 2025-01-11 14:10 | Outpatient (CLI) | payer OTHER, SELFPAY | PROVIDERS: Family Provider Family Medicine; PCP Family Medicine; Referring Provider Family Medicine; Visit Provider Physician Assistant | DX: L97.428 Non-pressure chronic ulcer of left heel and midfoot with other specified severity (principal); E11.621 Type 2 diabetes mellitus with foot ulcer; E11.42 Type 2 diabetes mellitus with diabetic polyneuropathy; I73.9 Peripheral vascular disease, unspecified; M86.171 Other acute osteomyelitis, right ankle and foot; L97.512 Non-pressure chronic ulcer of other part of right foot with fat layer exposed; L97.412 Non-pressure chronic ulcer of right heel and midfoot with fat layer exposed | CPT/HCPCS: 99183; G0277 ==

== ENCOUNTER → 2025-01-20 14:41 | Outpatient (CLI) | payer OTHER, SELFPAY | PROVIDERS: Family Provider Family Medicine; PCP Family Medicine; Referring Provider Family Medicine; Visit Provider Surgery | DX: E11.621 Type 2 diabetes mellitus with foot ulcer (principal); L97.422 Non-pressure chronic ulcer of left heel and midfoot with fat layer exposed; L97.516 Non-pressure chronic ulcer of other part of right foot with bone involvement without evidence of necrosis; I73.9 Peripheral vascular disease, unspecified; M86.171 Other acute osteomyelitis, right ankle and foot; L53.8 Other specified erythematous conditions; R60.0 Localized edema; L84 Corns and callosities | CPT/HCPCS: 11042; 99213 ==

== ENCOUNTER → 2025-01-27 11:20 | Outpatient (CLI) | payer OTHER, SELFPAY | PROVIDERS: Family Provider Family Medicine; PCP Family Medicine; Referring Provider Family Medicine; Visit Provider Surgery | DX: E11.621 Type 2 diabetes mellitus with foot ulcer (principal); L97.516 Non-pressure chronic ulcer of other part of right foot with bone involvement without evidence of necrosis; L97.422 Non-pressure chronic ulcer of left heel and midfoot with fat layer exposed; I73.9 Peripheral vascular disease, unspecified; M86.171 Other acute osteomyelitis, right ankle and foot; L53.8 Other specified erythematous conditions; R60.0 Localized edema; L84 Corns and callosities | CPT/HCPCS: 11042; 11104; 99213 ==

== ENCOUNTER → 2025-02-03 13:52 | Outpatient (CLI) | payer OTHER, SELFPAY | LOC: WC 13:52 | PROVIDERS: Family Provider Family Medicine; PCP Family Medicine; Referring Provider Family Medicine; Visit Provider Surgery | DX: E11.621 Type 2 diabetes mellitus with foot ulcer (principal); L97.422 Non-pressure chronic ulcer of left heel and midfoot with fat layer exposed; L97.512 Non-pressure chronic ulcer of other part of right foot with fat layer exposed; E11.42 Type 2 diabetes mellitus with diabetic polyneuropathy; R23.3 Spontaneous ecchymoses; R23.4 Changes in skin texture; L84 Corns and callosities; I73.9 Peripheral vascular disease, unspecified; L53.9 Erythematous condition, unspecified; M86.171 Other acute osteomyelitis, right ankle and foot | CPT/HCPCS: 11042 ==

== ENCOUNTER → 2025-02-10 14:08 | Outpatient (CLI) | payer OTHER, SELFPAY | LOC: WC 14:09 | PROVIDERS: Family Provider Family Medicine; PCP Family Medicine; Referring Provider Family Medicine; Visit Provider Surgery | DX: E11.621 Type 2 diabetes mellitus with foot ulcer (principal); L97.428 Non-pressure chronic ulcer of left heel and midfoot with other specified severity; L97.516 Non-pressure chronic ulcer of other part of right foot with bone involvement without evidence of necrosis; L84 Corns and callosities; I73.9 Peripheral vascular disease, unspecified; M86.171 Other acute osteomyelitis, right ankle and foot; R23.3 Spontaneous ecchymoses; R60.0 Localized edema | CPT/HCPCS: 11042 ==

== ENCOUNTER → 2025-02-17 14:11 | Outpatient (CLI) | payer OTHER, SELFPAY | LOC: WC 14:11 | PROVIDERS: Family Provider Family Medicine; PCP Family Medicine; Referring Provider Family Medicine; Visit Provider Surgery | DX: E11.621 Type 2 diabetes mellitus with foot ulcer (principal); E11.42 Type 2 diabetes mellitus with diabetic polyneuropathy; L97.428 Non-pressure chronic ulcer of left heel and midfoot with other specified severity; L97.516 Non-pressure chronic ulcer of other part of right foot with bone involvement without evidence of necrosis; I73.9 Peripheral vascular disease, unspecified; M86.171 Other acute osteomyelitis, right ankle and foot | CPT/HCPCS: 11042; 99213 ==

== ENCOUNTER → 2025-02-24 14:27 | Outpatient (CLI) | payer OTHER, SELFPAY | PROVIDERS: Family Provider Family Medicine; PCP Family Medicine; Referring Provider Family Medicine; Visit Provider Surgery | DX: E11.621 Type 2 diabetes mellitus with foot ulcer (principal); L97.428 Non-pressure chronic ulcer of left heel and midfoot with other specified severity; L97.512 Non-pressure chronic ulcer of other part of right foot with fat layer exposed; L84 Corns and callosities; I73.9 Peripheral vascular disease, unspecified; M86.171 Other acute osteomyelitis, right ankle and foot; R23.3 Spontaneous ecchymoses | CPT/HCPCS: 11042 ==

== ENCOUNTER → 2025-03-03 10:15 | Outpatient (CLI) | payer OTHER, SELFPAY | PROVIDERS: Family Provider Family Medicine; PCP Family Medicine; Referring Provider Family Medicine; Visit Provider Surgery | DX: E11.621 Type 2 diabetes mellitus with foot ulcer (principal); E11.42 Type 2 diabetes mellitus with diabetic polyneuropathy; L97.428 Non-pressure chronic ulcer of left heel and midfoot with other specified severity; L97.512 Non-pressure chronic ulcer of other part of right foot with fat layer exposed; L84 Corns and callosities; L98.8 Other specified disorders of the skin and subcutaneous tissue; R23.3 Spontaneous ecchymoses; R60.0 Localized edema; M86.171 Other acute osteomyelitis, right ankle and foot; I73.9 Peripheral vascular disease, unspecified | CPT/HCPCS: 11042 ==

== ENCOUNTER → 2025-03-07 16:05 | Outpatient (CLI) | payer OTHER, SELFPAY | PROVIDERS: Family Provider Family Medicine; PCP Family Medicine; Referring Provider Family Medicine; Visit Provider Surgery | DX: E11.621 Type 2 diabetes mellitus with foot ulcer (principal); E11.42 Type 2 diabetes mellitus with diabetic polyneuropathy; L97.428 Non-pressure chronic ulcer of left heel and midfoot with other specified severity; L97.512 Non-pressure chronic ulcer of other part of right foot with fat layer exposed; I73.9 Peripheral vascular disease, unspecified; M86.171 Other acute osteomyelitis, right ankle and foot | CPT/HCPCS: 99183; G0277 ==

== ENCOUNTER → 2025-03-08 10:49 | Outpatient (CLI) | payer OTHER, SELFPAY | LOC: WC 10:51 | PROVIDERS: Family Provider Family Medicine; PCP Family Medicine; Referring Provider Family Medicine; Visit Provider Surgery | DX: E11.621 Type 2 diabetes mellitus with foot ulcer (principal); L97.428 Non-pressure chronic ulcer of left heel and midfoot with other specified severity; L97.512 Non-pressure chronic ulcer of other part of right foot with fat layer exposed; E11.42 Type 2 diabetes mellitus with diabetic polyneuropathy; I73.9 Peripheral vascular disease, unspecified; M86.171 Other acute osteomyelitis, right ankle and foot | CPT/HCPCS: 99183; G0277 ==

== ENCOUNTER → 2025-03-09 11:01 | Outpatient (CLI) | payer OTHER, SELFPAY | LOC: WC 11:02 | PROVIDERS: Family Provider Family Medicine; PCP Family Medicine; Referring Provider Family Medicine; Visit Provider Surgery | DX: E11.621 Type 2 diabetes mellitus with foot ulcer (principal); L97.428 Non-pressure chronic ulcer of left heel and midfoot with other specified severity; L97.512 Non-pressure chronic ulcer of other part of right foot with fat layer exposed; E11.42 Type 2 diabetes mellitus with diabetic polyneuropathy; I73.9 Peripheral vascular disease, unspecified; M86.171 Other acute osteomyelitis, right ankle and foot | CPT/HCPCS: 99183; G0277 ==

== ENCOUNTER → 2025-03-10 11:08 | Outpatient (CLI) | payer OTHER, SELFPAY | LOC: WC 11:14 | PROVIDERS: Family Provider Family Medicine; PCP Family Medicine; Referring Provider Family Medicine; Visit Provider Surgery | DX: E11.621 Type 2 diabetes mellitus with foot ulcer (principal); E11.42 Type 2 diabetes mellitus with diabetic polyneuropathy; L97.428 Non-pressure chronic ulcer of left heel and midfoot with other specified severity; L97.512 Non-pressure chronic ulcer of other part of right foot with fat layer exposed; L89.611 Pressure ulcer of right heel, stage 1; I73.9 Peripheral vascular disease, unspecified; M86.171 Other acute osteomyelitis, right ankle and foot | CPT/HCPCS: 11042; 99183; G0277 ==

== ENCOUNTER → 2025-03-11 15:30 | Outpatient (CLI) | payer OTHER, SELFPAY | LOC: WC 15:30 | PROVIDERS: Family Provider Family Medicine; PCP Family Medicine; Referring Provider Family Medicine; Visit Provider Physician Assistant | DX: E11.621 Type 2 diabetes mellitus with foot ulcer (principal); E11.42 Type 2 diabetes mellitus with diabetic polyneuropathy; L97.428 Non-pressure chronic ulcer of left heel and midfoot with other specified severity; L97.512 Non-pressure chronic ulcer of other part of right foot with fat layer exposed; L89.611 Pressure ulcer of right heel, stage 1; I73.9 Peripheral vascular disease, unspecified; M86.171 Other acute osteomyelitis, right ankle and foot | CPT/HCPCS: 99183; G0277 ==

== ENCOUNTER → 2025-03-14 14:04 | Outpatient (CLI) | payer OTHER, SELFPAY | LOC: WC 14:08 | PROVIDERS: Family Provider Family Medicine; PCP Family Medicine; Referring Provider Family Medicine; Visit Provider Surgery | DX: E11.621 Type 2 diabetes mellitus with foot ulcer (principal); E11.42 Type 2 diabetes mellitus with diabetic polyneuropathy; L97.425 Non-pressure chronic ulcer of left heel and midfoot with muscle involvement without evidence of necrosis; L97.512 Non-pressure chronic ulcer of other part of right foot with fat layer exposed; L89.611 Pressure ulcer of right heel, stage 1; I73.9 Peripheral vascular disease, unspecified; M86.171 Other acute osteomyelitis, right ankle and foot | CPT/HCPCS: 99183; G0277 ==

== ENCOUNTER → 2025-03-15 11:36 | Outpatient (CLI) | payer OTHER, SELFPAY | LOC: WC 11:37 | PROVIDERS: Family Provider Family Medicine; PCP Family Medicine; Referring Provider Family Medicine; Visit Provider Surgery | DX: E11.621 Type 2 diabetes mellitus with foot ulcer (principal); E11.42 Type 2 diabetes mellitus with diabetic polyneuropathy; L97.428 Non-pressure chronic ulcer of left heel and midfoot with other specified severity; L97.512 Non-pressure chronic ulcer of other part of right foot with fat layer exposed; L89.611 Pressure ulcer of right heel, stage 1; I73.9 Peripheral vascular disease, unspecified; M86.171 Other acute osteomyelitis, right ankle and foot | CPT/HCPCS: 99183; G0277 ==

== ENCOUNTER → 2025-03-16 16:17 | Outpatient (CLI) | payer OTHER, SELFPAY | LOC: WC 16:18 | PROVIDERS: Family Provider Family Medicine; PCP Family Medicine; Referring Provider Family Medicine; Visit Provider Surgery | DX: L97.428 Non-pressure chronic ulcer of left heel and midfoot with other specified severity (principal); E11.621 Type 2 diabetes mellitus with foot ulcer; E11.42 Type 2 diabetes mellitus with diabetic polyneuropathy; I73.9 Peripheral vascular disease, unspecified; M86.171 Other acute osteomyelitis, right ankle and foot; L97.512 Non-pressure chronic ulcer of other part of right foot with fat layer exposed; L89.611 Pressure ulcer of right heel, stage 1 | CPT/HCPCS: 99183; G0277 ==

== ENCOUNTER → 2025-03-17 15:42 | Outpatient (CLI) | payer OTHER, SELFPAY | LOC: WC 15:43 | PROVIDERS: Family Provider Family Medicine; PCP Family Medicine; Referring Provider Family Medicine; Visit Provider Surgery | DX: E11.621 Type 2 diabetes mellitus with foot ulcer (principal); E11.42 Type 2 diabetes mellitus with diabetic polyneuropathy; L97.428 Non-pressure chronic ulcer of left heel and midfoot with other specified severity; L97.512 Non-pressure chronic ulcer of other part of right foot with fat layer exposed; L89.611 Pressure ulcer of right heel, stage 1; I73.9 Peripheral vascular disease, unspecified; M86.171 Other acute osteomyelitis, right ankle and foot | CPT/HCPCS: 11042; 99213 ==

== ENCOUNTER → 2025-03-18 11:14 | Outpatient (CLI) | payer OTHER, SELFPAY | LOC: WC 11:14 | PROVIDERS: Family Provider Family Medicine; PCP Family Medicine; Referring Provider Family Medicine; Visit Provider Physician Assistant | DX: E11.621 Type 2 diabetes mellitus with foot ulcer (principal); E11.42 Type 2 diabetes mellitus with diabetic polyneuropathy; L97.512 Non-pressure chronic ulcer of other part of right foot with fat layer exposed; L97.428 Non-pressure chronic ulcer of left heel and midfoot with other specified severity; M86.171 Other acute osteomyelitis, right ankle and foot; L89.611 Pressure ulcer of right heel, stage 1 | CPT/HCPCS: 99183; G0277 ==

== ENCOUNTER → 2025-03-24 10:22 | Outpatient (CLI) | payer OTHER, SELFPAY | PROVIDERS: Family Provider Family Medicine; PCP Family Medicine; Referring Provider Family Medicine; Visit Provider Surgery | DX: E11.621 Type 2 diabetes mellitus with foot ulcer (principal); E11.42 Type 2 diabetes mellitus with diabetic polyneuropathy; L97.428 Non-pressure chronic ulcer of left heel and midfoot with other specified severity; L97.512 Non-pressure chronic ulcer of other part of right foot with fat layer exposed; L89.611 Pressure ulcer of right heel, stage 1; I73.9 Peripheral vascular disease, unspecified; M86.171 Other acute osteomyelitis, right ankle and foot | CPT/HCPCS: 11042 ==

== ENCOUNTER → 2025-03-31 09:03 | Outpatient (CLI) | payer OTHER, SELFPAY ==
[2025-03-31 09:49] LABS: Hemoglobin A1C% w Est Avg Glu 5.4 % (4.0-6.0)
== END ==
PROVIDERS: Family Provider Family Medicine; PCP Family Medicine; Referring Provider Surgery; Visit Provider Surgery
DX: E11.9 Type 2 diabetes mellitus without complications (principal)
CPT/HCPCS: 36415; 83036

== ENCOUNTER → 2025-03-31 09:45 | Outpatient (CLI) | payer OTHER, SELFPAY | PROVIDERS: Family Provider Family Medicine; PCP Family Medicine; Referring Provider Family Medicine; Visit Provider Surgery | DX: E11.621 Type 2 diabetes mellitus with foot ulcer (principal); E11.42 Type 2 diabetes mellitus with diabetic polyneuropathy; L97.428 Non-pressure chronic ulcer of left heel and midfoot with other specified severity; L97.512 Non-pressure chronic ulcer of other part of right foot with fat layer exposed; L89.611 Pressure ulcer of right heel, stage 1; I73.9 Peripheral vascular disease, unspecified; M86.171 Other acute osteomyelitis, right ankle and foot; S81.011A Laceration without foreign body, right knee, initial encounter; S51.012A Laceration without foreign body of left elbow, initial encounter | CPT/HCPCS: 11042; 97597; 99213 ==

== ENCOUNTER → 2025-04-07 11:02 | Outpatient (CLI) | payer OTHER, SELFPAY | LOC: WC 11:06 | PROVIDERS: Family Provider Family Medicine; PCP Family Medicine; Referring Provider Family Medicine; Visit Provider Surgery | DX: E11.621 Type 2 diabetes mellitus with foot ulcer (principal); E11.42 Type 2 diabetes mellitus with diabetic polyneuropathy; L97.428 Non-pressure chronic ulcer of left heel and midfoot with other specified severity; L97.512 Non-pressure chronic ulcer of other part of right foot with fat layer exposed; Z87.2 Personal history of diseases of the skin and subcutaneous tissue; S81.011A Laceration without foreign body, right knee, initial encounter; S51.012A Laceration without foreign body of left elbow, initial encounter; I73.9 Peripheral vascular disease, unspecified; M86.171 Other acute osteomyelitis, right ankle and foot | CPT/HCPCS: 11042 ==

== ENCOUNTER → 2025-04-11 11:17 | Outpatient (CLI) | payer OTHER, SELFPAY | PROVIDERS: Family Provider Family Medicine; PCP Family Medicine; Referring Provider Family Medicine; Visit Provider Surgery | DX: E11.621 Type 2 diabetes mellitus with foot ulcer (principal); E11.42 Type 2 diabetes mellitus with diabetic polyneuropathy; L97.428 Non-pressure chronic ulcer of left heel and midfoot with other specified severity; L97.512 Non-pressure chronic ulcer of other part of right foot with fat layer exposed; L89.611 Pressure ulcer of right heel, stage 1; S81.011A Laceration without foreign body, right knee, initial encounter; S51.012A Laceration without foreign body of left elbow, initial encounter; I73.9 Peripheral vascular disease, unspecified; M86.171 Other acute osteomyelitis, right ankle and foot | CPT/HCPCS: 99183; G0277 ==

== ENCOUNTER → 2025-04-12 15:37 | Outpatient (CLI) | payer OTHER, SELFPAY | PROVIDERS: Family Provider Family Medicine; PCP Family Medicine; Referring Provider Family Medicine; Visit Provider Surgery | DX: E11.621 Type 2 diabetes mellitus with foot ulcer (principal); E11.42 Type 2 diabetes mellitus with diabetic polyneuropathy; L97.428 Non-pressure chronic ulcer of left heel and midfoot with other specified severity; L97.512 Non-pressure chronic ulcer of other part of right foot with fat layer exposed; I73.9 Peripheral vascular disease, unspecified; M86.171 Other acute osteomyelitis, right ankle and foot; L89.611 Pressure ulcer of right heel, stage 1; S81.011A Laceration without foreign body, right knee, initial encounter; S51.012A Laceration without foreign body of left elbow, initial encounter | CPT/HCPCS: 99183; G0277 ==

== ENCOUNTER → 2025-04-13 14:53 | Outpatient (CLI) | payer OTHER, SELFPAY | PROVIDERS: Family Provider Family Medicine; PCP Family Medicine; Referring Provider Family Medicine; Visit Provider Surgery | DX: E11.621 Type 2 diabetes mellitus with foot ulcer (principal); E11.42 Type 2 diabetes mellitus with diabetic polyneuropathy; L97.428 Non-pressure chronic ulcer of left heel and midfoot with other specified severity; L97.512 Non-pressure chronic ulcer of other part of right foot with fat layer exposed; I73.9 Peripheral vascular disease, unspecified; M86.171 Other acute osteomyelitis, right ankle and foot; L89.611 Pressure ulcer of right heel, stage 1; S81.011A Laceration without foreign body, right knee, initial encounter; S51.012A Laceration without foreign body of left elbow, initial encounter | CPT/HCPCS: 99183; G0277 ==

== ENCOUNTER → 2025-04-14 13:45 | Outpatient (CLI) | payer OTHER, SELFPAY | PROVIDERS: Family Provider Family Medicine; PCP Family Medicine; Referring Provider Family Medicine; Visit Provider Surgery | DX: E11.621 Type 2 diabetes mellitus with foot ulcer (principal); E11.42 Type 2 diabetes mellitus with diabetic polyneuropathy; L97.428 Non-pressure chronic ulcer of left heel and midfoot with other specified severity; I73.9 Peripheral vascular disease, unspecified; M86.171 Other acute osteomyelitis, right ankle and foot; L97.512 Non-pressure chronic ulcer of other part of right foot with fat layer exposed; L89.611 Pressure ulcer of right heel, stage 1; L97.322 Non-pressure chronic ulcer of left ankle with fat layer exposed; S81.011D Laceration without foreign body, right knee, subsequent encounter; S51.012D Laceration without foreign body of left elbow, subsequent encounter | CPT/HCPCS: 11042; 97602; 99183; 99212; 99213; G0277 ==

== ENCOUNTER → 2025-04-15 13:13 | Outpatient (CLI) | payer OTHER, SELFPAY | LOC: WC 13:14 | PROVIDERS: Family Provider Family Medicine; PCP Family Medicine; Referring Provider Family Medicine; Visit Provider Nurse Practitioner Family | DX: E11.621 Type 2 diabetes mellitus with foot ulcer (principal); E11.42 Type 2 diabetes mellitus with diabetic polyneuropathy; L97.428 Non-pressure chronic ulcer of left heel and midfoot with other specified severity; L97.512 Non-pressure chronic ulcer of other part of right foot with fat layer exposed; L97.322 Non-pressure chronic ulcer of left ankle with fat layer exposed; I73.9 Peripheral vascular disease, unspecified; M86.171 Other acute osteomyelitis, right ankle and foot; L89.611 Pressure ulcer of right heel, stage 1; S81.011D Laceration without foreign body, right knee, subsequent encounter; S51.012D Laceration without foreign body of left elbow, subsequent encounter | CPT/HCPCS: 99183; G0277 ==

== ENCOUNTER → 2025-04-18 11:23 | Outpatient (CLI) | payer OTHER, SELFPAY | LOC: WC 11:23 | PROVIDERS: Family Provider Family Medicine; PCP Family Medicine; Referring Provider Family Medicine; Visit Provider Surgery | DX: E11.621 Type 2 diabetes mellitus with foot ulcer (principal); E11.42 Type 2 diabetes mellitus with diabetic polyneuropathy; L97.428 Non-pressure chronic ulcer of left heel and midfoot with other specified severity; L97.512 Non-pressure chronic ulcer of other part of right foot with fat layer exposed; L97.322 Non-pressure chronic ulcer of left ankle with fat layer exposed; I73.9 Peripheral vascular disease, unspecified; M86.171 Other acute osteomyelitis, right ankle and foot; L89.611 Pressure ulcer of right heel, stage 1; S81.011D Laceration without foreign body, right knee, subsequent encounter; S51.012D Laceration without foreign body of left elbow, subsequent encounter | CPT/HCPCS: 99183; G0277 ==

== ENCOUNTER → 2025-04-19 14:36 | Outpatient (CLI) | payer OTHER, SELFPAY | LOC: WC 14:37 | PROVIDERS: Family Provider Family Medicine; PCP Family Medicine; Referring Provider Family Medicine; Visit Provider Surgery | DX: E11.621 Type 2 diabetes mellitus with foot ulcer (principal); E11.42 Type 2 diabetes mellitus with diabetic polyneuropathy; L97.428 Non-pressure chronic ulcer of left heel and midfoot with other specified severity; L97.512 Non-pressure chronic ulcer of other part of right foot with fat layer exposed; L97.322 Non-pressure chronic ulcer of left ankle with fat layer exposed; I73.9 Peripheral vascular disease, unspecified; M86.171 Other acute osteomyelitis, right ankle and foot; L89.611 Pressure ulcer of right heel, stage 1; S81.011D Laceration without foreign body, right knee, subsequent encounter; S51.012D Laceration without foreign body of left elbow, subsequent encounter | CPT/HCPCS: 99183; G0277 ==

== ENCOUNTER → 2025-04-20 11:06 | Outpatient (CLI) | payer OTHER, SELFPAY | LOC: WC 11:06 | PROVIDERS: Family Provider Family Medicine; PCP Family Medicine; Referring Provider Family Medicine; Visit Provider Nurse Practitioner Family | DX: E11.621 Type 2 diabetes mellitus with foot ulcer (principal); E11.42 Type 2 diabetes mellitus with diabetic polyneuropathy; L97.428 Non-pressure chronic ulcer of left heel and midfoot with other specified severity; L97.512 Non-pressure chronic ulcer of other part of right foot with fat layer exposed; L97.322 Non-pressure chronic ulcer of left ankle with fat layer exposed; I73.9 Peripheral vascular disease, unspecified; M86.171 Other acute osteomyelitis, right ankle and foot; L89.611 Pressure ulcer of right heel, stage 1; S81.011D Laceration without foreign body, right knee, subsequent encounter; S51.012D Laceration without foreign body of left elbow, subsequent encounter | CPT/HCPCS: 99183; G0277 ==

== ENCOUNTER → 2025-04-21 09:21 | Outpatient (CLI) | payer OTHER, SELFPAY | PROVIDERS: Family Provider Family Medicine; PCP Family Medicine; Referring Provider Family Medicine; Visit Provider Nurse Practitioner Family | DX: E11.621 Type 2 diabetes mellitus with foot ulcer (principal); E11.42 Type 2 diabetes mellitus with diabetic polyneuropathy; L97.428 Non-pressure chronic ulcer of left heel and midfoot with other specified severity; L97.512 Non-pressure chronic ulcer of other part of right foot with fat layer exposed; L97.322 Non-pressure chronic ulcer of left ankle with fat layer exposed; I73.9 Peripheral vascular disease, unspecified; M86.171 Other acute osteomyelitis, right ankle and foot; L89.611 Pressure ulcer of right heel, stage 1; S81.011D Laceration without foreign body, right knee, subsequent encounter; S51.012D Laceration without foreign body of left elbow, subsequent encounter; S81.011A Laceration without foreign body, right knee, initial encounter; E11.622 Type 2 diabetes mellitus with other skin ulcer; R23.3 Spontaneous ecchymoses; R60.0 Localized edema | CPT/HCPCS: 11042; 99183; 99214; G0277 ==

== ENCOUNTER → 2025-04-22 11:14 | Outpatient (CLI) | payer OTHER, SELFPAY | LOC: WC 11:15 | PROVIDERS: Family Provider Family Medicine; PCP Family Medicine; Referring Provider Family Medicine; Visit Provider Physician Assistant | DX: E11.621 Type 2 diabetes mellitus with foot ulcer (principal); E11.42 Type 2 diabetes mellitus with diabetic polyneuropathy; L97.428 Non-pressure chronic ulcer of left heel and midfoot with other specified severity; L97.512 Non-pressure chronic ulcer of other part of right foot with fat layer exposed; L97.322 Non-pressure chronic ulcer of left ankle with fat layer exposed; I73.9 Peripheral vascular disease, unspecified; M86.171 Other acute osteomyelitis, right ankle and foot; L89.611 Pressure ulcer of right heel, stage 1; S81.011D Laceration without foreign body, right knee, subsequent encounter; S51.012D Laceration without foreign body of left elbow, subsequent encounter | CPT/HCPCS: 99183; G0277 ==

== ENCOUNTER → 2025-04-25 15:45 | Outpatient (CLI) | payer OTHER, SELFPAY | LOC: WC 15:46 | PROVIDERS: Family Provider Family Medicine; PCP Family Medicine; Referring Provider Family Medicine; Visit Provider Surgery | DX: E11.621 Type 2 diabetes mellitus with foot ulcer (principal); E11.42 Type 2 diabetes mellitus with diabetic polyneuropathy; L97.512 Non-pressure chronic ulcer of other part of right foot with fat layer exposed; L97.428 Non-pressure chronic ulcer of left heel and midfoot with other specified severity; L97.322 Non-pressure chronic ulcer of left ankle with fat layer exposed; I73.9 Peripheral vascular disease, unspecified; M86.171 Other acute osteomyelitis, right ankle and foot; L89.611 Pressure ulcer of right heel, stage 1; S81.011D Laceration without foreign body, right knee, subsequent encounter; S51.012D Laceration without foreign body of left elbow, subsequent encounter | CPT/HCPCS: 99183; G0277 ==

== ENCOUNTER → 2025-04-26 11:33 | Outpatient (CLI) | payer OTHER, SELFPAY | LOC: WC 11:34 | PROVIDERS: Family Provider Family Medicine; PCP Family Medicine; Referring Provider Family Medicine; Visit Provider Surgery | DX: E11.621 Type 2 diabetes mellitus with foot ulcer (principal); L97.428 Non-pressure chronic ulcer of left heel and midfoot with other specified severity; E11.42 Type 2 diabetes mellitus with diabetic polyneuropathy; I73.9 Peripheral vascular disease, unspecified; M86.171 Other acute osteomyelitis, right ankle and foot; L97.512 Non-pressure chronic ulcer of other part of right foot with fat layer exposed; L89.611 Pressure ulcer of right heel, stage 1; L97.322 Non-pressure chronic ulcer of left ankle with fat layer exposed; S81.011D Laceration without foreign body, right knee, subsequent encounter; S51.012D Laceration without foreign body of left elbow, subsequent encounter | CPT/HCPCS: 99183; G0277 ==

== ENCOUNTER → 2025-04-27 11:35 | Outpatient (CLI) | payer OTHER, SELFPAY | LOC: WC 11:36 | PROVIDERS: Family Provider Family Medicine; PCP Family Medicine; Referring Provider Family Medicine; Visit Provider Surgery | DX: L97.428 Non-pressure chronic ulcer of left heel and midfoot with other specified severity (principal); E11.621 Type 2 diabetes mellitus with foot ulcer; E11.42 Type 2 diabetes mellitus with diabetic polyneuropathy; I73.9 Peripheral vascular disease, unspecified; M86.171 Other acute osteomyelitis, right ankle and foot; L97.512 Non-pressure chronic ulcer of other part of right foot with fat layer exposed; L89.611 Pressure ulcer of right heel, stage 1; L97.322 Non-pressure chronic ulcer of left ankle with fat layer exposed; S81.011D Laceration without foreign body, right knee, subsequent encounter; S51.012D Laceration without foreign body of left elbow, subsequent encounter | CPT/HCPCS: 99183; G0277 ==

== ENCOUNTER → 2025-04-28 09:49 | Outpatient (CLI) | payer OTHER, SELFPAY | LOC: WC 09:50 | PROVIDERS: Family Provider Family Medicine; PCP Family Medicine; Referring Provider Family Medicine; Visit Provider Surgery | DX: E11.621 Type 2 diabetes mellitus with foot ulcer (principal); L97.428 Non-pressure chronic ulcer of left heel and midfoot with other specified severity; L97.512 Non-pressure chronic ulcer of other part of right foot with fat layer exposed; L97.322 Non-pressure chronic ulcer of left ankle with fat layer exposed; S81.011D Laceration without foreign body, right knee, subsequent encounter; I73.9 Peripheral vascular disease, unspecified; M86.171 Other acute osteomyelitis, right ankle and foot; R23.3 Spontaneous ecchymoses; L08.89 Other specified local infections of the skin and subcutaneous tissue; R60.0 Localized edema; L84 Corns and callosities; Z79.01 Long term (current) use of anticoagulants | CPT/HCPCS: 11042; 87070; 87075; 87077; 87147; 87186; 87205; 97597; 99183; 99213; G0277 ==

== ENCOUNTER → 2025-04-29 11:21 | Outpatient (CLI) | payer OTHER, SELFPAY | LOC: WC 11:22 | PROVIDERS: Family Provider Family Medicine; PCP Family Medicine; Referring Provider Family Medicine; Visit Provider Physician Assistant | DX: L97.428 Non-pressure chronic ulcer of left heel and midfoot with other specified severity (principal); E11.621 Type 2 diabetes mellitus with foot ulcer; E11.42 Type 2 diabetes mellitus with diabetic polyneuropathy; I73.9 Peripheral vascular disease, unspecified; M86.171 Other acute osteomyelitis, right ankle and foot; L97.512 Non-pressure chronic ulcer of other part of right foot with fat layer exposed; L89.611 Pressure ulcer of right heel, stage 1; L97.322 Non-pressure chronic ulcer of left ankle with fat layer exposed; S81.011D Laceration without foreign body, right knee, subsequent encounter; S51.012D Laceration without foreign body of left elbow, subsequent encounter | CPT/HCPCS: 99183; G0277 ==

== ENCOUNTER → 2025-05-31 13:10 | Outpatient (CLI) | payer OTHER, SELFPAY | LOC: WC 13:11 | PROVIDERS: Family Provider Family Medicine; PCP Family Medicine; Referring Provider Family Medicine; Visit Provider Surgery | DX: E11.621 Type 2 diabetes mellitus with foot ulcer (principal); L97.428 Non-pressure chronic ulcer of left heel and midfoot with other specified severity; L97.512 Non-pressure chronic ulcer of other part of right foot with fat layer exposed; E11.622 Type 2 diabetes mellitus with other skin ulcer; L97.322 Non-pressure chronic ulcer of left ankle with fat layer exposed; L84 Corns and callosities; R23.4 Changes in skin texture; R23.3 Spontaneous ecchymoses; M86.9 Osteomyelitis, unspecified; E11.51 Type 2 diabetes mellitus with diabetic peripheral angiopathy without gangrene; I11.9 Hypertensive heart disease without heart failure; I50.9 Heart failure, unspecified; I48.91 Unspecified atrial fibrillation; Z79.01 Long term (current) use of anticoagulants; E78.5 Hyperlipidemia, unspecified; Z86.73 Personal history of transient ischemic attack (TIA), and cerebral infarction without residual deficits; I25.2 Old myocardial infarction; E11.628 Type 2 diabetes mellitus with other skin complications | CPT/HCPCS: 11042 ==

== ENCOUNTER → 2025-06-09 12:01 | Outpatient (CLI) | payer OTHER, SELFPAY | LOC: WC 12:02 | PROVIDERS: Family Provider Family Medicine; PCP Family Medicine; Referring Provider Family Medicine; Visit Provider Physician Assistant | DX: E11.621 Type 2 diabetes mellitus with foot ulcer (principal); L97.428 Non-pressure chronic ulcer of left heel and midfoot with other specified severity; L97.512 Non-pressure chronic ulcer of other part of right foot with fat layer exposed; E11.622 Type 2 diabetes mellitus with other skin ulcer; L97.322 Non-pressure chronic ulcer of left ankle with fat layer exposed; R23.3 Spontaneous ecchymoses; L84 Corns and callosities; R60.0 Localized edema; E11.51 Type 2 diabetes mellitus with diabetic peripheral angiopathy without gangrene; I11.0 Hypertensive heart disease with heart failure; I50.9 Heart failure, unspecified; E78.5 Hyperlipidemia, unspecified; I48.91 Unspecified atrial fibrillation; Z79.01 Long term (current) use of anticoagulants; Z86.73 Personal history of transient ischemic attack (TIA), and cerebral infarction without residual deficits; Z88.1 Allergy status to other antibiotic agents | CPT/HCPCS: 11042; 97597; 99213 ==

== ENCOUNTER → 2025-06-16 10:23 | Outpatient (CLI) | payer OTHER, SELFPAY | LOC: WC 10:24 | PROVIDERS: Family Provider Family Medicine; PCP Family Medicine; Referring Provider Family Medicine; Visit Provider Surgery | DX: E11.621 Type 2 diabetes mellitus with foot ulcer (principal); L97.428 Non-pressure chronic ulcer of left heel and midfoot with other specified severity; L97.512 Non-pressure chronic ulcer of other part of right foot with fat layer exposed; E11.622 Type 2 diabetes mellitus with other skin ulcer; L97.322 Non-pressure chronic ulcer of left ankle with fat layer exposed; L84 Corns and callosities; R23.3 Spontaneous ecchymoses; M86.9 Osteomyelitis, unspecified; E11.51 Type 2 diabetes mellitus with diabetic peripheral angiopathy without gangrene; E11.42 Type 2 diabetes mellitus with diabetic polyneuropathy; I11.0 Hypertensive heart disease with heart failure; I50.9 Heart failure, unspecified; I48.91 Unspecified atrial fibrillation; Z79.01 Long term (current) use of anticoagulants; E78.5 Hyperlipidemia, unspecified; Z86.73 Personal history of transient ischemic attack (TIA), and cerebral infarction without residual deficits; Z88.1 Allergy status to other antibiotic agents; Z88.8 Allergy status to other drugs, medicaments and biological substances | CPT/HCPCS: 11042 ==

== ENCOUNTER → 2025-06-23 13:50 | Outpatient (CLI) | payer OTHER, SELFPAY | LOC: WC 13:50 | PROVIDERS: Family Provider Family Medicine; PCP Family Medicine; Referring Provider Family Medicine; Visit Provider Surgery | DX: E11.621 Type 2 diabetes mellitus with foot ulcer (principal); M86.171 Other acute osteomyelitis, right ankle and foot; L97.422 Non-pressure chronic ulcer of left heel and midfoot with fat layer exposed; L97.322 Non-pressure chronic ulcer of left ankle with fat layer exposed; R60.0 Localized edema; L84 Corns and callosities; L53.8 Other specified erythematous conditions | CPT/HCPCS: 11042 ==

== ENCOUNTER → 2025-06-30 10:00 | Outpatient (CLI) | payer OTHER, SELFPAY | LOC: WC 07-01 16:09 | PROVIDERS: Family Provider Family Medicine; PCP Family Medicine; Referring Provider Family Medicine; Visit Provider Surgery | DX: E11.621 Type 2 diabetes mellitus with foot ulcer (principal); E11.622 Type 2 diabetes mellitus with other skin ulcer; L97.322 Non-pressure chronic ulcer of left ankle with fat layer exposed; L97.422 Non-pressure chronic ulcer of left heel and midfoot with fat layer exposed; M86.171 Other acute osteomyelitis, right ankle and foot; E11.42 Type 2 diabetes mellitus with diabetic polyneuropathy; I73.9 Peripheral vascular disease, unspecified; L53.8 Other specified erythematous conditions; R60.0 Localized edema | CPT/HCPCS: 11042 ==

== ENCOUNTER → 2025-07-07 10:54 | Outpatient (CLI) | payer OTHER, SELFPAY | LOC: WC 10:55 | PROVIDERS: Family Provider Family Medicine; PCP Family Medicine; Referring Provider Family Medicine; Visit Provider Surgery | DX: E11.621 Type 2 diabetes mellitus with foot ulcer (principal); E11.622 Type 2 diabetes mellitus with other skin ulcer; L97.422 Non-pressure chronic ulcer of left heel and midfoot with fat layer exposed; L97.322 Non-pressure chronic ulcer of left ankle with fat layer exposed; L97.412 Non-pressure chronic ulcer of right heel and midfoot with fat layer exposed; M86.171 Other acute osteomyelitis, right ankle and foot; E11.42 Type 2 diabetes mellitus with diabetic polyneuropathy; I73.9 Peripheral vascular disease, unspecified; R60.0 Localized edema; L53.8 Other specified erythematous conditions; Z79.01 Long term (current) use of anticoagulants | CPT/HCPCS: 11042; 99213 ==

== ENCOUNTER → 2025-07-14 11:20 | Outpatient (CLI) | payer OTHER, SELFPAY | LOC: WC 11:21 | PROVIDERS: Family Provider Family Medicine; PCP Family Medicine; Referring Provider Family Medicine; Visit Provider Surgery | DX: E11.621 Type 2 diabetes mellitus with foot ulcer (principal); L97.428 Non-pressure chronic ulcer of left heel and midfoot with other specified severity; L97.412 Non-pressure chronic ulcer of right heel and midfoot with fat layer exposed; E11.622 Type 2 diabetes mellitus with other skin ulcer; L97.322 Non-pressure chronic ulcer of left ankle with fat layer exposed; L98.8 Other specified disorders of the skin and subcutaneous tissue; R23.3 Spontaneous ecchymoses; E11.51 Type 2 diabetes mellitus with diabetic peripheral angiopathy without gangrene; E11.49 Type 2 diabetes mellitus with other diabetic neurological complication; I11.0 Hypertensive heart disease with heart failure; I50.9 Heart failure, unspecified; I48.91 Unspecified atrial fibrillation; Z79.01 Long term (current) use of anticoagulants; Z86.73 Personal history of transient ischemic attack (TIA), and cerebral infarction without residual deficits | CPT/HCPCS: 11042 ==

== ENCOUNTER → 2025-07-21 11:57 | Outpatient (CLI) | payer OTHER, SELFPAY | LOC: WC 11:59 | PROVIDERS: Family Provider Family Medicine; PCP Family Medicine; Referring Provider Family Medicine; Visit Provider Surgery | DX: E11.621 Type 2 diabetes mellitus with foot ulcer (principal); L97.428 Non-pressure chronic ulcer of left heel and midfoot with other specified severity; L97.322 Non-pressure chronic ulcer of left ankle with fat layer exposed; L97.412 Non-pressure chronic ulcer of right heel and midfoot with fat layer exposed; I73.9 Peripheral vascular disease, unspecified; R60.0 Localized edema; R23.3 Spontaneous ecchymoses | CPT/HCPCS: 11042; 99213 ==

== ENCOUNTER → 2025-07-28 10:54 | Outpatient (CLI) | payer OTHER, SELFPAY | LOC: WC 10:54 | PROVIDERS: Family Provider Family Medicine; PCP Family Medicine; Referring Provider Family Medicine; Visit Provider Surgery | DX: E11.621 Type 2 diabetes mellitus with foot ulcer (principal); L97.428 Non-pressure chronic ulcer of left heel and midfoot with other specified severity; L97.322 Non-pressure chronic ulcer of left ankle with fat layer exposed; L97.412 Non-pressure chronic ulcer of right heel and midfoot with fat layer exposed; R60.0 Localized edema; R23.3 Spontaneous ecchymoses; I73.9 Peripheral vascular disease, unspecified | CPT/HCPCS: 11042 ==

== ENCOUNTER → 2025-08-04 10:11 | Outpatient (CLI) | payer OTHER, SELFPAY | LOC: WC 10:12 | PROVIDERS: Family Provider Family Medicine; PCP Family Medicine; Referring Provider Family Medicine; Visit Provider Surgery | DX: Z09 Encounter for follow-up examination after completed treatment for conditions other than malignant neoplasm (principal); Z87.828 Personal history of other (healed) physical injury and trauma | CPT/HCPCS: 11042 ==

== ENCOUNTER → 2025-08-11 11:13 | Outpatient (CLI) | payer OTHER, SELFPAY | LOC: WC 11:13 | PROVIDERS: Family Provider Family Medicine; PCP Family Medicine; Referring Provider Family Medicine; Visit Provider Surgery | DX: E11.621 Type 2 diabetes mellitus with foot ulcer (principal); E11.622 Type 2 diabetes mellitus with other skin ulcer; L97.322 Non-pressure chronic ulcer of left ankle with fat layer exposed; L97.412 Non-pressure chronic ulcer of right heel and midfoot with fat layer exposed; L97.422 Non-pressure chronic ulcer of left heel and midfoot with fat layer exposed; E11.42 Type 2 diabetes mellitus with diabetic polyneuropathy; I73.9 Peripheral vascular disease, unspecified; M86.171 Other acute osteomyelitis, right ankle and foot; R60.0 Localized edema; Z79.01 Long term (current) use of anticoagulants | CPT/HCPCS: 11042; 97597; 99213 ==

== ENCOUNTER → 2025-08-18 10:56 | Outpatient (CLI) | payer OTHER, SELFPAY | LOC: WC 10:57 | PROVIDERS: Family Provider Family Medicine; PCP Family Medicine; Referring Provider Family Medicine; Visit Provider Surgery | DX: L97.428 Non-pressure chronic ulcer of left heel and midfoot with other specified severity (principal); M86.171 Other acute osteomyelitis, right ankle and foot; L97.412 Non-pressure chronic ulcer of right heel and midfoot with fat layer exposed; E11.621 Type 2 diabetes mellitus with foot ulcer; L97.322 Non-pressure chronic ulcer of left ankle with fat layer exposed; E11.42 Type 2 diabetes mellitus with diabetic polyneuropathy; I73.9 Peripheral vascular disease, unspecified | CPT/HCPCS: 11042; 99212 ==

== ENCOUNTER → 2025-08-25 10:40 | Outpatient (CLI) | payer OTHER, SELFPAY | LOC: WC 10:54 | PROVIDERS: Family Provider Family Medicine; PCP Family Medicine; Referring Provider Family Medicine; Visit Provider Surgery | DX: E11.621 Type 2 diabetes mellitus with foot ulcer (principal); E11.622 Type 2 diabetes mellitus with other skin ulcer; L97.422 Non-pressure chronic ulcer of left heel and midfoot with fat layer exposed; L97.322 Non-pressure chronic ulcer of left ankle with fat layer exposed; E11.42 Type 2 diabetes mellitus with diabetic polyneuropathy; I73.9 Peripheral vascular disease, unspecified; R60.0 Localized edema | CPT/HCPCS: 11042 ==

== ENCOUNTER → 2025-09-08 11:00 | Outpatient (CLI) | payer OTHER, SELFPAY | LOC: WC 11:00 | PROVIDERS: Family Provider Family Medicine; PCP Family Medicine; Referring Provider Family Medicine; Visit Provider Surgery | DX: E11.621 Type 2 diabetes mellitus with foot ulcer (principal); L97.422 Non-pressure chronic ulcer of left heel and midfoot with fat layer exposed; L97.322 Non-pressure chronic ulcer of left ankle with fat layer exposed; E11.42 Type 2 diabetes mellitus with diabetic polyneuropathy; I73.9 Peripheral vascular disease, unspecified; R60.0 Localized edema | CPT/HCPCS: 11042; 87070; 87075; 87077; 87147; 87186; 87205; 99213 ==

== ENCOUNTER → 2025-09-15 12:19 | Outpatient (CLI) | payer OTHER, SELFPAY | LOC: WC 12:20 | PROVIDERS: Family Provider Family Medicine; PCP Family Medicine; Referring Provider Family Medicine; Visit Provider Surgery | DX: E11.621 Type 2 diabetes mellitus with foot ulcer (principal); E11.51 Type 2 diabetes mellitus with diabetic peripheral angiopathy without gangrene; L97.422 Non-pressure chronic ulcer of left heel and midfoot with fat layer exposed; L97.322 Non-pressure chronic ulcer of left ankle with fat layer exposed; R60.0 Localized edema; R21 Rash and other nonspecific skin eruption; B95.62 Methicillin resistant Staphylococcus aureus infection as the cause of diseases classified elsewhere | CPT/HCPCS: 11042 ==

== ENCOUNTER → 2025-09-22 14:22 | Outpatient (CLI) | payer OTHER, SELFPAY ==
[2025-09-22 15:15] LABS: Add Manual Diff / Slide Review NO; Hematocrit 41.0 % (41-53); Hemoglobin 13.7 g/dL (13.5-17.5); Lymphocytes Absolute Auto 900 /uL (1100-4500); Mean Corpuscular HGB Conc 33.4 % (30-36); Mean Corpuscular Hemoglobin 31.1 PG (26-34); Mean Corpuscular Volume 93.3 fL (80-100); Platelet Count 227 X10^3/uL (150-400)
[2025-09-22 15:38] LABS: Alanine Aminotransferase 27 IU/L (<50); Albumin 4.6 g/dL (3.5-5.0); Albumin Globulin Ratio 1.4 (1.0-2.8); Alkaline Phosphatase 141 U/L (38-126); Blood Urea Nitrogen 27 mg/dL (9-20); Calcium 9.8 mg/dL (8.4-10.2); Carbon Dioxide 27 mmol/L (22-32); Chloride 105 mmol/L (98-107); Estimated Glomerular Filt Rate > 60 mL/min (>60); Globulin 3.4 g/dL (1.7-4.1); Glucose 110 mg/dL (70-99); HEMOLYSIS 16 (0-50); Potassium 4.1 mmol/L (3.4-5.1); Sodium 145 mmol/L (137-145); Total Protein 8.0 g/dL (6.3-8.2)
== END ==
PROVIDERS: Family Provider Family Medicine; PCP Family Medicine; Referring Provider Internal Medicine Infectious Disease; Visit Provider Internal Medicine Infectious Disease
DX: L08.9 Local infection of the skin and subcutaneous tissue, unspecified (principal); T14.8XXA Other injury of unspecified body region, initial encounter
CPT/HCPCS: 36415; 80053; 85025; 86140

== ENCOUNTER → 2025-09-23 09:26 | Outpatient (CLI) | payer OTHER, SELFPAY | LOC: WC 09:26 | PROVIDERS: Family Provider Family Medicine; PCP Family Medicine; Referring Provider Family Medicine; Visit Provider Physician Assistant | DX: E11.621 Type 2 diabetes mellitus with foot ulcer (principal); M86.171 Other acute osteomyelitis, right ankle and foot; L97.322 Non-pressure chronic ulcer of left ankle with fat layer exposed; L97.422 Non-pressure chronic ulcer of left heel and midfoot with fat layer exposed; E11.42 Type 2 diabetes mellitus with diabetic polyneuropathy; L08.9 Local infection of the skin and subcutaneous tissue, unspecified; R60.0 Localized edema; L53.8 Other specified erythematous conditions | CPT/HCPCS: 11042; 99213 ==